=== PATIENT | female | born 1940 | race Caucasian/White ===

== ENCOUNTER → 2018-02-12 | Outpatient (CLI) | payer MEDICARE, OTHER ==
[~2018-02-12] MED LIST: BARIUM SULF 2% 450 ML BTL (BERRY SMOOTHIE) PO
== END | disposition home or self-care (01) ==
LOC: C/S 09:33
DX: R63.4 Abnormal weight loss (principal)
CPT/HCPCS: 71250; 74176

== ENCOUNTER 2018-02-22 11:51 | Inpatient (IN) | payer MEDICARE, OTHER ==
[2018-02-22] MEDS: ALBUTEROL 0.5% (NEB) 2.5 MG/0.5 ML AMP INH (14:07)
[2018-02-22] MEDS: IPRATROPIUM (NEB) 0.5 MG/2.5 ML AMP INH (14:07)
[2018-02-22 14:32] LABS: ADD MAN DIFF? NO
[2018-02-22 14:33] LABS: BASOPHILS % 0.4 % (0.0-2.0); EOSINOPHILS # 0.1 10^3/ul (0.0-0.5); EOSINOPHILS % 1.8 % (0.0-7.0); HEMATOCRIT 31.6 % (37.0-47.0); HEMOGLOBIN 10.5 g/dl (12.0-16.0); LYMPHOCYTES # 1.1 10^3/ul (0.8-2.9); LYMPHOCYTES % 19.6 % (15.0-51.0); MEAN CORPUSCULAR HEMOGLOBIN 30.4 pg (29.0-33.0); MEAN CORPUSCULAR HGB CONC 33.2 g/dl (32.0-37.0); MEAN CORPUSCULAR VOLUME 91.6 fl (82.0-101.0); MEAN PLATELET VOLUME 8.9 fl (7.4-10.4); MONOCYTE # 0.2 10^3/ul (0.3-0.9); MONOCYTES % 4.2 % (0.0-11.0); NEUTROPHIL # 4.2 10^3/ul (1.6-7.5); NEUTROPHILS % 73.8 % (39.0-77.0); PLATELET COUNT 423 10^3/UL (140-415); RED BLOOD COUNT 3.45 10^6/ul (4.20-5.40); RED CELL DISTRIBUTION WIDTH 13.1 % (11.5-14.5)
[2018-02-22 14:33] LABS: WHITE BLOOD COUNT 5.7 10^3/ul (4.8-10.8)
[2018-02-22] MEDS: METHYLPREDNISOLONE 125 MG INJ IV (14:46)
[2018-02-22] MEDS: IBUPROFEN 600 MG TAB PO (14:46)
[2018-02-22] MEDS: SOD CHLORIDE 0.9% 500 ML IV (14:46)
[2018-02-22 14:55] LABS: ALANINE AMINOTRANSFERASE 19 IU/L (13-69); ALBUMIN/GLOBULIN RATIO 1.02; ALKALINE PHOSPHATASE 94 IU/L (42-121); ANION GAP 17 (8-16); ASPARTATE AMINO TRANSFERASE 18 IU/L (15-46); BILIRUBIN,INDIRECT 0.4 mg/dl (0-1.1); BILIRUBIN,TOTAL 0.4 mg/dl (0.2-1.3); BLOOD UREA NITROGEN 23 mg/dl (7-20); CALCIUM 8.8 mg/dl (8.4-10.2); CARBON DIOXIDE 24 mmol/L (21-31); CHLORIDE 97 mmol/L (97-110); CREATININE 1.57 mg/dl (0.44-1.00); GLUCOSE 278 mg/dl (70-220); LIPASE 101 U/L (23-300); POTASSIUM 4.9 mmol/L (3.5-5.1); SODIUM 133 mmol/L (135-144); TOTAL PROTEIN 7.9 g/dl (6.1-8.1)
[2018-02-22 14:58] LABS: ADD UMIC YES; UR ASCORBIC ACID NEGATIVE (NEGATIVE); UR BACTERIA FEW /HPF (NONE SEEN); UR BILIRUBIN (Dip) NEGATIVE (NEGATIVE); UR BLOOD (Dip) NEGATIVE (NEGATIVE); UR BUDDING YEAST FEW /HPF (NONE SEEN); UR CLARITY CLOUDY (CLEAR); UR COLOR YELLOW (YELLOW); UR GLUCOSE (Dip) 1+ mg/dL (NEGATIVE); UR KETONES (Dip) NEGATIVE (NEGATIVE); UR LEUKOCYTE ESTERASE (Dip) 3+ Leu/ul (NEGATIVE); UR NITRITE (Dip) NEGATIVE (NEGATIVE); UR RBC 14 /HPF (0-5); UR SPECIFIC GRAVITY (Dip) 1.012 (1.003-1.030); UR SQUAMOUS EPITHELIAL CELL FEW /HPF (FEW); UR TOTAL PROTEIN (Dip) 2+ mg/dl (NEGATIVE); UR UROBILINOGEN (Dip) NEGATIVE (NEGATIVE); UR WBC 141 /HPF (0-5)
[2018-02-22 15:18] LABS: TROPONIN-I < 0.012 ng/ml (0.000-0.120)
[2018-02-22] MEDS: FUROSEMIDE 40 MG INJ IV (17:00)
[2018-02-22] MEDS: CEFTRIAXONE 1 GM/50 ML (PMX) 50 ML IVPB (17:00)
[2018-02-22] MEDS ORDERED: ONDANSETRON 4 MG INJ IV (18:00)
[2018-02-22] MEDS ORDERED: ZOLPIDEM 5 MG TAB PO (18:00)
[2018-02-22] MEDS ORDERED: ALBUTEROL/IPRATROPIUM (NEB) 3 ML AMP HHN (18:00)
[2018-02-22] MEDS ORDERED: BISACODYL (EC) 5 MG TAB PO (18:00)
[2018-02-22] MEDS ORDERED: NACL 0.9% 3 ML SYG IV (18:00)
[2018-02-22] MEDS ORDERED: GLUCOSE GEL 15 GRAM TUBE PO ×2 (20:30)
[2018-02-22] MEDS ORDERED: DEXTROSE 50% 50 ML SYRINGE IV (20:30)
[2018-02-22] MEDS ORDERED: GLUCOSE GEL 15 GRAM TUBE BUCCAL (20:30)
[2018-02-22] MEDS ORDERED: GLUCAGON 1 MG INJ IM (20:30)
[2018-02-22] MEDS: ALBUTEROL/IPRATROPIUM (NEB) 3 ML AMP HHN (20:33)
[2018-02-22] MEDS: metFORMIN (XR) 500 MG TAB PO (21:00)
[2018-02-22] MEDS: INSULIN ASPART [NOVOLOG] 3 ML PEN SC (21:39)
[2018-02-22] MEDS: INSULIN GLARGINE [LANtus] 3 ML PEN SC (21:40)
[2018-02-22] MEDS: NPH, HUMAN INSULIN ISOPHANE 3ML VIAL SC (21:40)
[2018-02-22] MEDS: GABAPENTIN 300 MG CAP PO (21:41)
[2018-02-22] MEDS: FLUOXETINE 20 MG CAP PO (21:42)
[2018-02-22] MEDS: METOPROLOL (XL) 50 MG TAB PO (21:42)
[2018-02-23] MEDS: ALBUTEROL/IPRATROPIUM (NEB) 3 ML AMP HHN ×6 (00:50→21:37)
[2018-02-23] MEDS: ACCU-CHEK XX (02:00)
[2018-02-23 06:11] LABS: ADD MAN DIFF? NO
[2018-02-23 06:19] LABS: HEMATOCRIT 28.7 % (37.0-47.0); HEMOGLOBIN 9.5 g/dl (12.0-16.0); LYMPHOCYTES # 0.8 10^3/ul (0.8-2.9); LYMPHOCYTES % 12.9 % (15.0-51.0); MEAN CORPUSCULAR HEMOGLOBIN 30.2 pg (29.0-33.0); MEAN CORPUSCULAR HGB CONC 33.1 g/dl (32.0-37.0); MEAN CORPUSCULAR VOLUME 91.1 fl (82.0-101.0); MEAN PLATELET VOLUME 9.5 fl (7.4-10.4); MONOCYTE # 0.1 10^3/ul (0.3-0.9); MONOCYTES % 1.7 % (0.0-11.0); NEUTROPHILS % 85.1 % (39.0-77.0); PLATELET COUNT 418 10^3/UL (140-415); RED BLOOD COUNT 3.15 10^6/ul (4.20-5.40); RED CELL DISTRIBUTION WIDTH 13.2 % (11.5-14.5)
[2018-02-23 06:19] LABS: WHITE BLOOD COUNT 5.9 10^3/ul (4.8-10.8)
[2018-02-23] MEDS: PANTOPRAZOLE (EC) 40 MG TAB PO (06:31)
[2018-02-23 06:48] LABS: ALANINE AMINOTRANSFERASE 15 IU/L (13-69); ALBUMIN 3.5 g/dl (3.3-4.9); ALKALINE PHOSPHATASE 79 IU/L (42-121); ANION GAP 22 (8-16); ASPARTATE AMINO TRANSFERASE 14 IU/L (15-46); BILIRUBIN,INDIRECT 0.1 mg/dl (0-1.1); BILIRUBIN,TOTAL 0.1 mg/dl (0.2-1.3); BLOOD UREA NITROGEN 26 mg/dl (7-20); CALCIUM 8.9 mg/dl (8.4-10.2); CARBON DIOXIDE 22 mmol/L (21-31); CHLORIDE 94 mmol/L (97-110); CHOL/HDL RATIO 4.1 RATIO; CHOLESTEROL 159 mg/dl (100-200); CREATININE 1.66 mg/dl (0.44-1.00); GLUCOSE 319 mg/dl (70-220); HDL CHOLESTEROL 38 mg/dl (33-92); LDL CHOLESTEROL,CALCULATED 104 mg/dl; POTASSIUM 5.2 mmol/L (3.5-5.1); SODIUM 133 mmol/L (135-144); TOTAL PROTEIN 6.4 g/dl (6.1-8.1); TRIGLYCERIDES 86 mg/dl (0-149)
[2018-02-23 06:55] LABS: B-TYPE NATRIURETIC PEPTIDE 2900 PG/ML (0-450)
[2018-02-23 07:14] LABS: HEMOGLOBIN A1C 10.2 % (0-5.9)
[2018-02-23] MEDS: metFORMIN (XR) 500 MG TAB PO (08:00)
[2018-02-23] MEDS: INSULIN ASPART [NOVOLOG] 3 ML PEN SC ×7 (08:02→21:00)
[2018-02-23] MEDS: FUROSEMIDE 40 MG INJ IV (09:32)
[2018-02-23] MEDS: ENOXAPARIN 30 MG/0.3 ML SYG SC (09:37)
[2018-02-23] MEDS ORDERED: PENDING SANTYL ORDER FOR WOUND CARE XX (10:00)
[2018-02-23] MEDS ORDERED: COLLAGENASE 5 GM (UD JAR) TOP (10:30)
[2018-02-23] MEDS: GABAPENTIN 300 MG CAP PO ×3 (10:36→20:55)
[2018-02-23] MEDS: METOPROLOL (XL) 50 MG TAB PO ×2 (10:37→20:56)
[2018-02-23] MEDS: NIFEdipine (XL) 60 MG TAB PO (10:37)
[2018-02-23] MEDS: LINAGLIPTIN 5 MG TABLET PO (10:37)
[2018-02-23 12:22] LABS: INR 1.09; PROTIME 14.2 Sec (11.9-14.9); PT RATIO 1.1
[2018-02-23 12:23] LABS: INR 1.09; PARTIAL THROMBOPLASTIN TIME 52.7 Sec (25.0-35.0); PROTIME 14.2 Sec (11.9-14.9); PT RATIO 1.1
[2018-02-23 12:24] LABS: PARTIAL THROMBOPLASTIN TIME 52.2 Sec (25.0-35.0); THROMBIN TIME 16.7 SEC (13.8-19.1)
[2018-02-23 12:24] LABS: PLATELET COUNT 411 10^3/UL (140-415)
[2018-02-23] MEDS: FLUOXETINE 20 MG CAP PO ×2 (13:15→20:56)
[2018-02-23] MEDS: DEXTROSE 50% 50 ML SYRINGE IV (15:49)
[2018-02-23] MEDS: CEFTRIAXONE 2 GM/50 ML (PMX) 50 ML IVPB (15:53)
[2018-02-23] MEDS ORDERED: INSULIN GLARGINE [LANtus] 3 ML PEN SC (20:00)
[2018-02-23] MEDS: ATORVASTATIN 10 MG TAB PO (20:55)
[2018-02-23] MEDS: INSULIN GLARGINE [LANtus] 3 ML PEN SC (21:10)
[2018-02-23] MEDS: LORAZEPAM 1 MG TAB PO (23:11)
[2018-02-24] MEDS: ALBUTEROL/IPRATROPIUM (NEB) 3 ML AMP HHN ×6 (01:14→20:54)
[2018-02-24] MEDS: ACCU-CHEK XX (02:00)
[2018-02-24 05:46] LABS: ADD MAN DIFF? NO
[2018-02-24 05:55] LABS: BASOPHILS % 0.3 % (0.0-2.0); EOSINOPHILS # 0.2 10^3/ul (0.0-0.5); EOSINOPHILS % 2.4 % (0.0-7.0); HEMATOCRIT 26.3 % (37.0-47.0); HEMOGLOBIN 8.8 g/dl (12.0-16.0); LYMPHOCYTES # 2.3 10^3/ul (0.8-2.9); LYMPHOCYTES % 25.1 % (15.0-51.0); MEAN CORPUSCULAR HEMOGLOBIN 30.2 pg (29.0-33.0); MEAN CORPUSCULAR HGB CONC 33.5 g/dl (32.0-37.0); MEAN CORPUSCULAR VOLUME 90.4 fl (82.0-101.0); MEAN PLATELET VOLUME 9.2 fl (7.4-10.4); MONOCYTE # 0.7 10^3/ul (0.3-0.9); MONOCYTES % 7.5 % (0.0-11.0); NEUTROPHIL # 5.8 10^3/ul (1.6-7.5); NEUTROPHILS % 64.3 % (39.0-77.0); PLATELET COUNT 419 10^3/UL (140-415); RED BLOOD COUNT 2.91 10^6/ul (4.20-5.40)
[2018-02-24 06:34] LABS: ANION GAP 16 (8-16); BLOOD UREA NITROGEN 43 mg/dl (7-20); CALCIUM 8.7 mg/dl (8.4-10.2); CARBON DIOXIDE 28 mmol/L (21-31); CHLORIDE 97 mmol/L (97-110); CREATININE 1.97 mg/dl (0.44-1.00); GLUCOSE 189 mg/dl (70-220); POTASSIUM 4.2 mmol/L (3.5-5.1); SODIUM 137 mmol/L (135-144)
[2018-02-24] MEDS: PANTOPRAZOLE (EC) 40 MG TAB PO (07:01)
[2018-02-24] MEDS: INSULIN ASPART [NOVOLOG] 3 ML PEN SC ×7 (08:00→21:00)
[2018-02-24] MEDS ORDERED: COLLAGENASE 5 GM (UD JAR) TOP (09:00)
[2018-02-24] MEDS: LINAGLIPTIN 5 MG TABLET PO (09:29)
[2018-02-24] MEDS: NIFEdipine (XL) 60 MG TAB PO (09:29)
[2018-02-24] MEDS: FLUOXETINE 20 MG CAP PO ×2 (09:29→20:22)
[2018-02-24] MEDS: GABAPENTIN 300 MG CAP PO ×3 (09:30→20:22)
[2018-02-24] MEDS: METOPROLOL (XL) 50 MG TAB PO ×2 (09:30→20:25)
[2018-02-24] MEDS: COLLAGENASE 5 GM (UD JAR) TOP (09:30)
[2018-02-24] MEDS: LIDOCAINE 1% (MDV) 10 ML INJ (11:02)
[2018-02-24 13:20] LABS: FLD MN% 95.4 %; FLD PMN% 4.6 %; FLD RBC 0 /uL; FLD WBC 388 /cmm
[2018-02-24 13:44] LABS: FLD TYPE THORACENTHESIS
[2018-02-24 13:44] LABS: FLD CLARITY SLIGHTLY HAZY; FLD COLOR YELLOW
[2018-02-24 13:50] LABS: FLUID GLUCOSE 179 mg/dl
[2018-02-24 13:52] LABS: FLUID TYPE THORACENTESIS
[2018-02-24 13:53] LABS: FLUID TOTAL PROTEIN 4.3 g/dl; FLUID TYPE THORACENTESIS FLUID
[2018-02-24] MEDS: ACETAMINOPHEN 325 MG TAB PO (14:09)
[2018-02-24 14:12] LABS: FLUID LD 266 U/L
[2018-02-24] MEDS: HYDROCODONE/APAP (5/325) TAB PO (15:36)
[2018-02-24] MEDS: CEFTRIAXONE 2 GM/50 ML (PMX) 50 ML IVPB (16:08)
[2018-02-24] MEDS: ATORVASTATIN 10 MG TAB PO (20:22)
[2018-02-24] MEDS: INSULIN GLARGINE [LANtus] 3 ML PEN SC (20:27)
[2018-02-24] MEDS: LORAZEPAM 1 MG TAB PO (22:03)
[2018-02-25] MEDS: ALBUTEROL/IPRATROPIUM (NEB) 3 ML AMP HHN ×6 (00:27→21:23)
[2018-02-25] MEDS: ACCU-CHEK XX (02:00)
[2018-02-25] MEDS: PANTOPRAZOLE (EC) 40 MG TAB PO (06:51)
[2018-02-25 07:47] LABS: ADD MAN DIFF? NO
[2018-02-25 07:51] LABS: WHITE BLOOD COUNT 7.1 10^3/ul (4.8-10.8)
[2018-02-25 07:51] LABS: BASOPHILS % 0.3 % (0.0-2.0); EOSINOPHILS # 0.3 10^3/ul (0.0-0.5); EOSINOPHILS % 4.5 % (0.0-7.0); HEMATOCRIT 27.7 % (37.0-47.0); HEMOGLOBIN 9.2 g/dl (12.0-16.0); LYMPHOCYTES # 1.2 10^3/ul (0.8-2.9); LYMPHOCYTES % 17.1 % (15.0-51.0); MEAN CORPUSCULAR HEMOGLOBIN 30.1 pg (29.0-33.0); MEAN CORPUSCULAR HGB CONC 33.2 g/dl (32.0-37.0); MEAN CORPUSCULAR VOLUME 90.5 fl (82.0-101.0); MEAN PLATELET VOLUME 9.4 fl (7.4-10.4); MONOCYTE # 0.5 10^3/ul (0.3-0.9); MONOCYTES % 7.6 % (0.0-11.0); NEUTROPHILS % 69.8 % (39.0-77.0); PLATELET COUNT 426 10^3/UL (140-415); RED BLOOD COUNT 3.06 10^6/ul (4.20-5.40); RED CELL DISTRIBUTION WIDTH 13.1 % (11.5-14.5)
[2018-02-25 08:29] LABS: ANION GAP 16 (8-16); BLOOD UREA NITROGEN 51 mg/dl (7-20); CARBON DIOXIDE 26 mmol/L (21-31); CHLORIDE 92 mmol/L (97-110); CREATININE 1.85 mg/dl (0.44-1.00); GLUCOSE 219 mg/dl (70-220); POTASSIUM 4.4 mmol/L (3.5-5.1); SODIUM 130 mmol/L (135-144)
[2018-02-25 08:32] LABS: MAGNESIUM 1.7 mg/dl (1.7-2.5)
[2018-02-25] MEDS: INSULIN ASPART [NOVOLOG] 3 ML PEN SC ×7 (08:37→21:00)
[2018-02-25] MEDS: NIFEdipine (XL) 60 MG TAB PO (08:42)
[2018-02-25] MEDS: METOPROLOL (XL) 50 MG TAB PO ×2 (08:42→20:45)
[2018-02-25] MEDS: LINAGLIPTIN 5 MG TABLET PO (08:42)
[2018-02-25] MEDS: FLUOXETINE 20 MG CAP PO ×2 (08:42→20:44)
[2018-02-25] MEDS: GABAPENTIN 300 MG CAP PO ×3 (08:43→20:44)
[2018-02-25] MEDS: ENOXAPARIN 30 MG/0.3 ML SYG SC (08:43)
[2018-02-25] MEDS: COLLAGENASE 5 GM (UD JAR) TOP (08:43)
[2018-02-25] MEDS: HYDROCODONE/APAP (5/325) TAB PO ×2 (13:54→20:53)
[2018-02-25] MEDS: DOCUSATE SODIUM 100 MG CAP PO (13:54)
[2018-02-25] MEDS: CEFTRIAXONE 2 GM/50 ML (PMX) 50 ML IVPB (16:43)
[2018-02-25] MEDS: ATORVASTATIN 10 MG TAB PO (20:44)
[2018-02-25] MEDS: INSULIN GLARGINE [LANtus] 3 ML PEN SC (20:47)
[2018-02-25] MEDS: LORAZEPAM 1 MG TAB PO (22:17)
[2018-02-26] MEDS: ALBUTEROL/IPRATROPIUM (NEB) 3 ML AMP HHN ×6 (01:00→20:17)
[2018-02-26] MEDS: ACCU-CHEK XX (02:00)
[2018-02-26] MEDS: PANTOPRAZOLE (EC) 40 MG TAB PO (05:17)
[2018-02-26] MEDS: NIFEdipine (XL) 60 MG TAB PO (08:43)
[2018-02-26] MEDS: METOPROLOL (XL) 50 MG TAB PO ×2 (08:43→21:35)
[2018-02-26] MEDS: DOCUSATE SODIUM 100 MG CAP PO (08:43)
[2018-02-26] MEDS: INSULIN ASPART [NOVOLOG] 3 ML PEN SC ×7 (08:44→21:30)
[2018-02-26] MEDS: GABAPENTIN 300 MG CAP PO ×3 (08:45→21:35)
[2018-02-26] MEDS: FLUOXETINE 20 MG CAP PO ×2 (08:45→21:35)
[2018-02-26] MEDS: LINAGLIPTIN 5 MG TABLET PO (08:45)
[2018-02-26] MEDS: COLLAGENASE 5 GM (UD JAR) TOP (08:45)
[2018-02-26] MEDS: ENOXAPARIN 30 MG/0.3 ML SYG SC (08:45)
[2018-02-26 13:56] LABS: NIL 0.04 IU/mL; QUANTIFERON(R)-TB GOLD NEGATIVE (NEGATIVE); TB-NIL <0.00 IU/mL
[2018-02-26] MEDS: CEFTRIAXONE 2 GM/50 ML (PMX) 50 ML IVPB (17:05)
[2018-02-26] MEDS: INSULIN GLARGINE [LANtus] 3 ML PEN SC (21:29)
[2018-02-26] MEDS: ATORVASTATIN 10 MG TAB PO (21:35)
[2018-02-27] MEDS: ALBUTEROL/IPRATROPIUM (NEB) 3 ML AMP HHN ×6 (01:31→20:34)
[2018-02-27] MEDS: ACCU-CHEK XX (02:00)
[2018-02-27] MEDS: PANTOPRAZOLE (EC) 40 MG TAB PO (05:49)
[2018-02-27 07:00] LABS: CREATININE 1.74 mg/dl (0.44-1.00)
[2018-02-27 07:00] LABS: BLOOD UREA NITROGEN 48 mg/dl (7-20)
[2018-02-27] MEDS: INSULIN ASPART [NOVOLOG] 3 ML PEN SC ×7 (07:35→20:23)
[2018-02-27] MEDS: ENOXAPARIN 30 MG/0.3 ML SYG SC (08:53)
[2018-02-27] MEDS: FLUOXETINE 20 MG CAP PO ×2 (08:54→20:16)
[2018-02-27] MEDS: NIFEdipine (XL) 60 MG TAB PO (08:54)
[2018-02-27] MEDS: LINAGLIPTIN 5 MG TABLET PO (08:54)
[2018-02-27] MEDS: GABAPENTIN 300 MG CAP PO ×3 (08:54→20:16)
[2018-02-27] MEDS: METOPROLOL (XL) 50 MG TAB PO ×2 (08:55→20:17)
[2018-02-27] MEDS: HYDROCODONE/APAP (5/325) TAB PO (08:55)
[2018-02-27] MEDS: COLLAGENASE 5 GM (UD JAR) TOP (08:57)
[2018-02-27] MEDS: CEFTRIAXONE 2 GM/50 ML (PMX) 50 ML IVPB (17:37)
[2018-02-27] MEDS: ATORVASTATIN 10 MG TAB PO (20:15)
[2018-02-27] MEDS: INSULIN GLARGINE [LANtus] 3 ML PEN SC (20:22)
[2018-02-27] MEDS: LORAZEPAM 1 MG TAB PO (22:15)
[2018-02-28] MEDS: ALBUTEROL/IPRATROPIUM (NEB) 3 ML AMP HHN ×6 (01:21→20:00)
[2018-02-28] MEDS: ACCU-CHEK XX (01:22)
[2018-02-28] MEDS: PANTOPRAZOLE (EC) 40 MG TAB PO (05:42)
[2018-02-28] MEDS: INSULIN ASPART [NOVOLOG] 3 ML PEN SC ×7 (08:39→21:12)
[2018-02-28] MEDS: GABAPENTIN 300 MG CAP PO ×3 (08:42→21:07)
[2018-02-28] MEDS: NIFEdipine (XL) 60 MG TAB PO (08:42)
[2018-02-28] MEDS: FLUOXETINE 20 MG CAP PO ×2 (08:42→21:07)
[2018-02-28] MEDS: METOPROLOL (XL) 50 MG TAB PO ×2 (08:43→21:07)
[2018-02-28] MEDS: LINAGLIPTIN 5 MG TABLET PO (08:43)
[2018-02-28] MEDS: ENOXAPARIN 30 MG/0.3 ML SYG SC (08:44)
[2018-02-28] MEDS: COLLAGENASE 5 GM (UD JAR) TOP (08:54)
[2018-02-28] MEDS: CEFTRIAXONE 2 GM/50 ML (PMX) 50 ML IVPB (18:09)
[2018-02-28] MEDS: INSULIN GLARGINE [LANtus] 3 ML PEN SC (21:12)
[2018-02-28] MEDS: ATORVASTATIN 10 MG TAB PO (21:13)
[2018-03-01] MEDS: ALBUTEROL/IPRATROPIUM (NEB) 3 ML AMP HHN ×5 (00:51→17:19)
[2018-03-01] MEDS: ACCU-CHEK XX (02:00)
[2018-03-01] MEDS: PANTOPRAZOLE (EC) 40 MG TAB PO (05:38)
[2018-03-01 05:54] LABS: ADD MAN DIFF? NO
[2018-03-01 05:59] LABS: WHITE BLOOD COUNT 11.6 10^3/ul (4.8-10.8)
[2018-03-01 05:59] LABS: BASOPHIL # 0.1 10^3/ul (0.0-0.1); BASOPHILS % 0.4 % (0.0-2.0); EOSINOPHILS # 0.3 10^3/ul (0.0-0.5); EOSINOPHILS % 2.2 % (0.0-7.0); HEMATOCRIT 28.5 % (37.0-47.0); HEMOGLOBIN 9.2 g/dl (12.0-16.0); LYMPHOCYTES # 1.4 10^3/ul (0.8-2.9); MEAN CORPUSCULAR HEMOGLOBIN 30.4 pg (29.0-33.0); MEAN CORPUSCULAR HGB CONC 32.3 g/dl (32.0-37.0); MEAN CORPUSCULAR VOLUME 94.1 fl (82.0-101.0); MEAN PLATELET VOLUME 9.4 fl (7.4-10.4); MONOCYTE # 0.7 10^3/ul (0.3-0.9); NEUTROPHIL # 9.2 10^3/ul (1.6-7.5); NEUTROPHILS % 78.9 % (39.0-77.0); PLATELET COUNT 487 10^3/UL (140-415); RED BLOOD COUNT 3.03 10^6/ul (4.20-5.40); RED CELL DISTRIBUTION WIDTH 13.2 % (11.5-14.5)
[2018-03-01 07:10] LABS: ALANINE AMINOTRANSFERASE 22 IU/L (13-69); ALBUMIN 3.8 g/dl (3.3-4.9); ALBUMIN/GLOBULIN RATIO 1.15; ALKALINE PHOSPHATASE 123 IU/L (42-121); ANION GAP 20 (8-16); ASPARTATE AMINO TRANSFERASE 27 IU/L (15-46); B-TYPE NATRIURETIC PEPTIDE 4060 PG/ML (0-450); BILIRUBIN,INDIRECT 0.1 mg/dl (0-1.1); BILIRUBIN,TOTAL 0.1 mg/dl (0.2-1.3); BLOOD UREA NITROGEN 46 mg/dl (7-20); CALCIUM 8.9 mg/dl (8.4-10.2); CARBON DIOXIDE 23 mmol/L (21-31); CHLORIDE 97 mmol/L (97-110); CREATININE 1.73 mg/dl (0.44-1.00); GLUCOSE 181 mg/dl (70-220); POTASSIUM 5.1 mmol/L (3.5-5.1); SODIUM 135 mmol/L (135-144); TOTAL PROTEIN 7.1 g/dl (6.1-8.1)
[2018-03-01] MEDS: INSULIN ASPART [NOVOLOG] 3 ML PEN SC ×4 (08:07→12:30)
[2018-03-01] MEDS: GABAPENTIN 300 MG CAP PO ×2 (08:52→14:07)
[2018-03-01] MEDS: NIFEdipine (XL) 60 MG TAB PO (08:52)
[2018-03-01] MEDS: LINAGLIPTIN 5 MG TABLET PO (08:53)
[2018-03-01] MEDS: METOPROLOL (XL) 50 MG TAB PO (08:53)
[2018-03-01] MEDS: FLUOXETINE 20 MG CAP PO (08:53)
[2018-03-01] MEDS: ENOXAPARIN 30 MG/0.3 ML SYG SC (08:54)
[2018-03-01] MEDS: COLLAGENASE 5 GM (UD JAR) TOP (09:00)
[2018-03-01] MEDS: HYDROCODONE/APAP (5/325) TAB PO (16:32)
== END 2018-03-01 18:46 | disposition home or self-care (01) | DRG 291 ==
LOC: MS4 16:53 → PP2 02-26 22:33 → E/R 11:51
PROC: 0W9B3ZX Drainage of Left Pleural Cavity, Percutaneous Approach, Diagnostic (ICD-10-PCS; principal; 2018-02-24)
DX: I13.0 Hypertensive heart and chronic kidney disease with heart failure and stage 1 through stage 4 chronic kidney disease, or unspecified chronic kidney disease (principal); L89.153 Pressure ulcer of sacral region, stage 3; I50.41 Acute combined systolic (congestive) and diastolic (congestive) heart failure; N39.0 Urinary tract infection, site not specified; J90 Pleural effusion, not elsewhere classified; N17.9 Acute kidney failure, unspecified; E11.22 Type 2 diabetes mellitus with diabetic chronic kidney disease; D63.1 Anemia in chronic kidney disease; N18.2 Chronic kidney disease, stage 2 (mild); J45.20 Mild intermittent asthma, uncomplicated; K21.9 Gastro-esophageal reflux disease without esophagitis; E78.5 Hyperlipidemia, unspecified; B96.20 Unspecified Escherichia coli [E. coli] as the cause of diseases classified elsewhere; Z96.642 Presence of left artificial hip joint; Z79.4 Long term (current) use of insulin
CPT/HCPCS: 32555; 36415; 71045; 71047; 71250; 80048; 80053; 80061; 81001; 82565; 82945; 82962; 83036; 83615; 83690; 83735; 83880; 84157; 84484; 84520; 85025; 85049; 85610; 85670; 85730; 86480; 87070; 87086; 87102; 87116; 88104; 88305; 89051; 93005; 93306; 94640; 94644; 94664; 96372; 96374; 96375; 99285-25

== ENCOUNTER 2018-05-07 10:19 | Inpatient (IN) | payer MEDICARE, OTHER ==
[2018-05-07 11:11] LABS: ADD MAN DIFF? NO
[2018-05-07] MEDS: ACETAMINOPHEN 500 MG TAB PO (11:11)
[2018-05-07 11:16] LABS: WHITE BLOOD COUNT 8.9 10^3/ul (4.8-10.8)
[2018-05-07 11:16] LABS: ABNORMAL IP MESSAGE 1; BASOPHILS % 0.1 % (0.0-2.0); EOSINOPHILS % 0.3 % (0.0-7.0); HEMATOCRIT 20.4 % (37.0-47.0); LYMPHOCYTES # 0.6 10^3/ul (0.8-2.9); LYMPHOCYTES % 6.8 % (15.0-51.0); MEAN CORPUSCULAR HEMOGLOBIN 28.9 pg (29.0-33.0); MEAN CORPUSCULAR HGB CONC 32.4 g/dl (32.0-37.0); MEAN CORPUSCULAR VOLUME 89.5 fl (82.0-101.0); MEAN PLATELET VOLUME 8.7 fl (7.4-10.4); MONOCYTE # 0.5 10^3/ul (0.3-0.9); MONOCYTES % 5.1 % (0.0-11.0); NEUTROPHIL # 7.8 10^3/ul (1.6-7.5); NEUTROPHILS % 87.4 % (39.0-77.0); PLATELET COUNT 543 10^3/UL (140-415); RED BLOOD COUNT 2.28 10^6/ul (4.20-5.40); RED CELL DISTRIBUTION WIDTH 14.7 % (11.5-14.5)
[2018-05-07 11:20] LABS: HEMOGLOBIN 6.6 g/dl (12.0-16.0); POSITIVE DIFF @See below
[2018-05-07 11:23] LABS: ADD UMIC YES; UR ASCORBIC ACID NEGATIVE (NEGATIVE); UR BACTERIA FEW /HPF (NONE SEEN); UR BILIRUBIN (Dip) NEGATIVE (NEGATIVE); UR BLOOD (Dip) 2+ mg/dL (NEGATIVE); UR CLARITY CLEAR (CLEAR); UR COLOR STRAW (YELLOW); UR GLUCOSE (Dip) NEGATIVE (NEGATIVE); UR KETONES (Dip) NEGATIVE (NEGATIVE); UR LEUKOCYTE ESTERASE (Dip) NEGATIVE Leu/ul (NEGATIVE); UR NITRITE (Dip) NEGATIVE (NEGATIVE); UR RBC 5 /HPF (0-5); UR SPECIFIC GRAVITY (Dip) 1.004 (1.003-1.030); UR SQUAMOUS EPITHELIAL CELL FEW /HPF (FEW); UR TOTAL PROTEIN (Dip) 1+ mg/dl (NEGATIVE); UR UROBILINOGEN (Dip) NEGATIVE (NEGATIVE); UR WBC 5 /HPF (0-5)
[2018-05-07 11:34] LABS: ANION GAP 16 (8-16); BLOOD UREA NITROGEN 58 mg/dl (7-20); CALCIUM 8.1 mg/dl (8.4-10.2); CARBON DIOXIDE 27 mmol/L (21-31); CHLORIDE 95 mmol/L (97-110); CREATININE 6.17 mg/dl (0.44-1.00); GLUCOSE 115 mg/dl (70-220); POTASSIUM 5.9 mmol/L (3.5-5.1); SODIUM 132 mmol/L (135-144)
[2018-05-07 11:44] LABS: TROPONIN-I < 0.012 ng/ml (0.000-0.120)
[2018-05-07 11:57] LABS: INR 0.91; PROTIME 12.3 Sec (11.9-14.9)
[2018-05-07 11:58] LABS: PARTIAL THROMBOPLASTIN TIME 28.6 Sec (25.0-35.0)
[2018-05-07] MEDS: NA POLYST SULFON 15 GM/60 ML BTL PO (13:57)
[2018-05-07] MEDS ORDERED: ONDANSETRON 4 MG TAB PO (14:00)
[2018-05-07] MEDS: ACCU-CHEK XX ×3 (14:00→19:55)
[2018-05-07] MEDS ORDERED: DOCUSATE SODIUM 100 MG CAP PO (14:00)
[2018-05-07] MEDS ORDERED: NACL 0.9% 3 ML SYG IV (14:00)
[2018-05-07 14:17] LABS: ADD MAN DIFF? NO
[2018-05-07 14:28] LABS: BASOPHILS % 0.1 % (0.0-2.0); EOSINOPHILS # 0.1 10^3/ul (0.0-0.5); HEMOGLOBIN 7.1 g/dl (12.0-16.0); LYMPHOCYTES # 0.9 10^3/ul (0.8-2.9); LYMPHOCYTES % 9.9 % (15.0-51.0); MEAN CORPUSCULAR HEMOGLOBIN 29.1 pg (29.0-33.0); MEAN CORPUSCULAR HGB CONC 32.3 g/dl (32.0-37.0); MEAN CORPUSCULAR VOLUME 90.2 fl (82.0-101.0); MEAN PLATELET VOLUME 8.7 fl (7.4-10.4); MONOCYTE # 0.5 10^3/ul (0.3-0.9); MONOCYTES % 4.9 % (0.0-11.0); NEUTROPHIL # 7.9 10^3/ul (1.6-7.5); NEUTROPHILS % 83.8 % (39.0-77.0); PLATELET COUNT 583 10^3/UL (140-415); RED BLOOD COUNT 2.44 10^6/ul (4.20-5.40); RED CELL DISTRIBUTION WIDTH 14.6 % (11.5-14.5)
[2018-05-07 14:28] LABS: WHITE BLOOD COUNT 9.4 10^3/ul (4.8-10.8)
[2018-05-07 14:32] LABS: ADD UMIC YES; UR ASCORBIC ACID NEGATIVE (NEGATIVE); UR BACTERIA FEW /HPF (NONE SEEN); UR BILIRUBIN (Dip) NEGATIVE (NEGATIVE); UR BLOOD (Dip) 2+ mg/dL (NEGATIVE); UR CLARITY CLEAR (CLEAR); UR COLOR STRAW (YELLOW); UR GLUCOSE (Dip) NEGATIVE (NEGATIVE); UR KETONES (Dip) NEGATIVE (NEGATIVE); UR LEUKOCYTE ESTERASE (Dip) NEGATIVE Leu/ul (NEGATIVE); UR MUCUS FEW /HPF (NONE SEEN); UR NITRITE (Dip) NEGATIVE (NEGATIVE); UR RBC 10 /HPF (0-5); UR SPECIFIC GRAVITY (Dip) 1.004 (1.003-1.030); UR SQUAMOUS EPITHELIAL CELL FEW /HPF (FEW); UR TOTAL PROTEIN (Dip) 1+ mg/dl (NEGATIVE); UR UROBILINOGEN (Dip) NEGATIVE (NEGATIVE); UR WBC 4 /HPF (0-5)
[2018-05-07 14:35] LABS: IRON 25 ug/dl (35-150)
[2018-05-07 14:44] LABS: % IRON SATURATION 10 % SAT (22-52); TOTAL IRON BINDING CAPACITY 251 ug/dl (241-421)
[2018-05-07 14:45] LABS: CREATINE KINASE 29 IU/L (23-200)
[2018-05-07 14:47] LABS: ALANINE AMINOTRANSFERASE 14 IU/L (13-69); ALBUMIN 3.7 g/dl (3.3-4.9); ALBUMIN/GLOBULIN RATIO 1.02; ALKALINE PHOSPHATASE 91 IU/L (42-121); ANION GAP 18 (8-16); ASPARTATE AMINO TRANSFERASE 17 IU/L (15-46); BILIRUBIN,INDIRECT 0.1 mg/dl (0-1.1); BILIRUBIN,TOTAL 0.1 mg/dl (0.2-1.3); BLOOD UREA NITROGEN 61 mg/dl (7-20); CALCIUM 8.4 mg/dl (8.4-10.2); CARBON DIOXIDE 25 mmol/L (21-31); CHLORIDE 96 mmol/L (97-110); CREATININE 6.18 mg/dl (0.44-1.00); GLUCOSE 66 mg/dl (70-220); POTASSIUM 5.7 mmol/L (3.5-5.1); SODIUM 133 mmol/L (135-144); TOTAL PROTEIN 7.3 g/dl (6.1-8.1)
[2018-05-07 14:57] LABS: CK INDEX 4.3; CK-MB 1.25 ng/ml (0.0-2.4); TROPONIN-I < 0.012 ng/ml (0.000-0.120)
[2018-05-07 15:03] LABS: PHOSPHORUS 5.9 mg/dl (2.5-4.9)
[2018-05-07 15:03] LABS: MAGNESIUM 2.8 mg/dl (1.7-2.5)
[2018-05-07 15:27] LABS: SODIUM,URINE RANDOM 44 mmol/L (30-90)
[2018-05-07 15:28] LABS: CREATININE,URINE RANDOM 17.32 mg/dl (20-320); PROTEIN/CREAT RATIO 4.15 RATIO
[2018-05-07 15:34] LABS: IONIZED CALCIUM 1.1 mmol/L (1.1-1.4)
[2018-05-07] MEDS ORDERED: GLUCOSE GEL 15 GRAM TUBE PO ×2 (17:30)
[2018-05-07] MEDS ORDERED: GLUCAGON 1 MG INJ IM (17:30)
[2018-05-07] MEDS ORDERED: GLUCOSE GEL 15 GRAM TUBE BUCCAL (17:30)
[2018-05-07] MEDS ORDERED: DEXTROSE 50% 50 ML SYRINGE IV ×2 (17:30)
[2018-05-07] MEDS ORDERED: INSULIN ASPART [NOVOLOG] 3 ML PEN SC (17:55)
[2018-05-07] MEDS: HYDROCODONE/APAP (5/325) TAB PO (18:27)
[2018-05-07] MEDS ORDERED: hydrALAzine 20 MG INJ (18:51)
[2018-05-07] MEDS: FAMOTIDINE 20 MG TAB PO (20:04)
[2018-05-07] MEDS: GABAPENTIN 300 MG CAP PO (20:04)
[2018-05-07] MEDS: FLUOXETINE 20 MG CAP PO (20:04)
[2018-05-07] MEDS: METOPROLOL (XL) 50 MG TAB PO (20:04)
[2018-05-07] MEDS: ATORVASTATIN 10 MG TAB PO (20:04)
[2018-05-07 20:11] LABS: CREATINE KINASE 31 IU/L (23-200)
[2018-05-07 20:21] LABS: CK INDEX 4.1; CK-MB 1.28 ng/ml (0.0-2.4)
[2018-05-07 20:25] LABS: TROPONIN-I < 0.012 ng/ml (0.000-0.120)
[2018-05-07] MEDS: INSULIN ASPART [NOVOLOG] 3 ML PEN SC (21:27)
[2018-05-07] MEDS: INSULIN GLARGINE [LANTus] (100 UNITS/ML) SYG SC (21:34)
[2018-05-07 22:06] LABS: IMMEDIATE SPIN CROSSMATCH 1 2
[2018-05-08] MEDS: LORAZEPAM 0.5 MG TAB PO (00:26)
[2018-05-08] MEDS: SOD CHLORIDE 0.9% 1,000 ML IV ×3 (01:32→20:13)
[2018-05-08] MEDS: HYDROCODONE/APAP (5/325) TAB PO (05:22)
[2018-05-08 06:52] LABS: ADD MAN DIFF? NO
[2018-05-08 07:00] LABS: BASOPHILS % 0.2 % (0.0-2.0); EOSINOPHILS # 0.2 10^3/ul (0.0-0.5); EOSINOPHILS % 1.7 % (0.0-7.0); HEMOGLOBIN 9.8 g/dl (12.0-16.0); LYMPHOCYTES # 0.6 10^3/ul (0.8-2.9); LYMPHOCYTES % 5.9 % (15.0-51.0); MEAN CORPUSCULAR HEMOGLOBIN 29.4 pg (29.0-33.0); MEAN CORPUSCULAR HGB CONC 33.8 g/dl (32.0-37.0); MEAN CORPUSCULAR VOLUME 87.1 fl (82.0-101.0); MEAN PLATELET VOLUME 8.8 fl (7.4-10.4); MONOCYTE # 0.5 10^3/ul (0.3-0.9); MONOCYTES % 4.9 % (0.0-11.0); NEUTROPHIL # 8.9 10^3/ul (1.6-7.5); NEUTROPHILS % 86.7 % (39.0-77.0); PLATELET COUNT 501 10^3/UL (140-415); RED BLOOD COUNT 3.33 10^6/ul (4.20-5.40); RED CELL DISTRIBUTION WIDTH 14.7 % (11.5-14.5)
[2018-05-08 07:00] LABS: WHITE BLOOD COUNT 10.2 10^3/ul (4.8-10.8)
[2018-05-08] MEDS: ACCU-CHEK XX ×6 (07:25→19:55)
[2018-05-08 07:36] LABS: ALANINE AMINOTRANSFERASE 15 IU/L (13-69); ALBUMIN 3.1 g/dl (3.3-4.9); ALBUMIN/GLOBULIN RATIO 0.86; ALKALINE PHOSPHATASE 98 IU/L (42-121); ANION GAP 16 (8-16); ASPARTATE AMINO TRANSFERASE 24 IU/L (15-46); BILIRUBIN,INDIRECT 0.4 mg/dl (0-1.1); BILIRUBIN,TOTAL 0.4 mg/dl (0.2-1.3); BLOOD UREA NITROGEN 62 mg/dl (7-20); CALCIUM 7.7 mg/dl (8.4-10.2); CARBON DIOXIDE 26 mmol/L (21-31); CHLORIDE 97 mmol/L (97-110); CREATININE 5.63 mg/dl (0.44-1.00); GLUCOSE 67 mg/dl (70-220); SODIUM 134 mmol/L (135-144); TOTAL PROTEIN 6.7 g/dl (6.1-8.1)
[2018-05-08 07:59] LABS: HEMOGLOBIN A1C 7.7 % (0-5.9)
[2018-05-08] MEDS: PANTOPRAZOLE (EC) 40 MG TAB PO (08:14)
[2018-05-08] MEDS: NIFEdipine (XL) 60 MG TAB PO (08:15)
[2018-05-08] MEDS: GABAPENTIN 300 MG CAP PO ×3 (08:16→20:13)
[2018-05-08] MEDS: FLUOXETINE 20 MG CAP PO ×2 (08:16→20:13)
[2018-05-08] MEDS: METOPROLOL (XL) 50 MG TAB PO ×2 (08:16→20:16)
[2018-05-08] MEDS: LINAGLIPTIN 5 MG TABLET PO (09:14)
[2018-05-08] MEDS: INSULIN ASPART [NOVOLOG] 3 ML PEN SC ×3 (10:13→17:51)
[2018-05-08] MEDS: SOD FERRIC GLUC COMPLX 125 MG in SOD CHLORIDE 0.9% 100 ML IVPB (16:30)
[2018-05-08] MEDS: EPOETIN 10000 UNITS/1 ML INJ (ESRD) SC (16:32)
[2018-05-08] MEDS ORDERED: COLLAGENASE 5 GM (UD JAR) TOP (16:39)
[2018-05-08] MEDS: COLLAGENASE 5 GM (UD JAR) TOP (17:06)
[2018-05-08] MEDS: NEOMYC/POLYMYX/BACIT 30 GM OINT TOP (17:52)
[2018-05-08] MEDS: ACETAMINOPHEN 325 MG TAB PO (20:12)
[2018-05-08] MEDS: ATORVASTATIN 10 MG TAB PO (20:12)
[2018-05-08] MEDS: FAMOTIDINE 20 MG TAB PO (20:13)
[2018-05-08] MEDS: INSULIN GLARGINE [LANTus] (100 UNITS/ML) SYG SC (20:23)
[2018-05-09 02:52] LABS: PROTEIN, TOTAL 6.5 g/dL (6.1-8.1)
[2018-05-09] MEDS: PANTOPRAZOLE (EC) 40 MG TAB PO (06:38)
[2018-05-09 07:22] LABS: ADD MAN DIFF? NO
[2018-05-09 07:26] LABS: WHITE BLOOD COUNT 9.7 10^3/ul (4.8-10.8)
[2018-05-09 07:26] LABS: ABNORMAL IP MESSAGE 1; BASOPHILS % 0.1 % (0.0-2.0); EOSINOPHILS % 0.1 % (0.0-7.0); HEMATOCRIT 29.1 % (37.0-47.0); HEMOGLOBIN 9.4 g/dl (12.0-16.0); LYMPHOCYTES # 0.5 10^3/ul (0.8-2.9); LYMPHOCYTES % 4.9 % (15.0-51.0); MEAN CORPUSCULAR HEMOGLOBIN 29.3 pg (29.0-33.0); MEAN CORPUSCULAR HGB CONC 32.3 g/dl (32.0-37.0); MEAN CORPUSCULAR VOLUME 90.7 fl (82.0-101.0); MEAN PLATELET VOLUME 8.6 fl (7.4-10.4); MONOCYTE # 0.4 10^3/ul (0.3-0.9); MONOCYTES % 4.5 % (0.0-11.0); NEUTROPHIL # 8.8 10^3/ul (1.6-7.5); NEUTROPHILS % 89.9 % (39.0-77.0); PLATELET COUNT 463 10^3/UL (140-415); RED BLOOD COUNT 3.21 10^6/ul (4.20-5.40); RED CELL DISTRIBUTION WIDTH 14.8 % (11.5-14.5)
[2018-05-09 07:30] LABS: POSITIVE DIFF @See below
[2018-05-09 07:47] LABS: ALANINE AMINOTRANSFERASE 12 IU/L (13-69); ALBUMIN 2.8 g/dl (3.3-4.9); ALBUMIN/GLOBULIN RATIO 0.82; ALKALINE PHOSPHATASE 89 IU/L (42-121); ANION GAP 18 (8-16); ASPARTATE AMINO TRANSFERASE 19 IU/L (15-46); BILIRUBIN,INDIRECT 0.1 mg/dl (0-1.1); BILIRUBIN,TOTAL 0.1 mg/dl (0.2-1.3); BLOOD UREA NITROGEN 57 mg/dl (7-20); CALCIUM 7.7 mg/dl (8.4-10.2); CARBON DIOXIDE 22 mmol/L (21-31); CHLORIDE 98 mmol/L (97-110); CREATININE 5.24 mg/dl (0.44-1.00); GLUCOSE 170 mg/dl (70-220); MAGNESIUM 2.6 mg/dl (1.7-2.5); PHOSPHORUS 6.7 mg/dl (2.5-4.9); POTASSIUM 4.1 mmol/L (3.5-5.1); SODIUM 134 mmol/L (135-144); TOTAL PROTEIN 6.2 g/dl (6.1-8.1)
[2018-05-09] MEDS: ACCU-CHEK XX ×6 (08:07→19:55)
[2018-05-09] MEDS: INSULIN ASPART [NOVOLOG] 3 ML PEN SC ×3 (08:10→17:15)
[2018-05-09] MEDS: LINAGLIPTIN 5 MG TABLET PO (08:17)
[2018-05-09] MEDS: GABAPENTIN 300 MG CAP PO ×3 (08:17→20:43)
[2018-05-09] MEDS: NIFEdipine (XL) 60 MG TAB PO (08:17)
[2018-05-09] MEDS: METOPROLOL (XL) 50 MG TAB PO ×2 (08:18→20:44)
[2018-05-09] MEDS: FLUOXETINE 20 MG CAP PO ×2 (08:18→20:44)
[2018-05-09] MEDS: NEOMYC/POLYMYX/BACIT 30 GM OINT TOP (08:26)
[2018-05-09] MEDS: SOD CHLORIDE 0.9% 1,000 ML IV ×2 (10:30→18:43)
[2018-05-09] MEDS: CALCIUM ACETATE 667 MG CAP PO ×2 (12:52→17:15)
[2018-05-09] MEDS: SOD FERRIC GLUC COMPLX 125 MG in SOD CHLORIDE 0.9% 100 ML IVPB (17:15)
[2018-05-09] MEDS: ATORVASTATIN 10 MG TAB PO (20:43)
[2018-05-09] MEDS: FAMOTIDINE 20 MG TAB PO (20:43)
[2018-05-09] MEDS: ACETAMINOPHEN 325 MG TAB PO (20:45)
[2018-05-09] MEDS: INSULIN GLARGINE [LANTus] (100 UNITS/ML) SYG SC (20:49)
[2018-05-09 22:26] LABS: ALPHA-1-GLOBULINS 0.5 g/dL (0.2-0.3); BETA 2 GLOBULINS 0.6 g/dL (0.2-0.5); BETA GLOBULINS 0.4 g/dL (0.4-0.6)
[2018-05-10 06:55] LABS: ADD MAN DIFF? NO
[2018-05-10 06:59] LABS: BASOPHILS % 0.3 % (0.0-2.0); EOSINOPHILS # 0.2 10^3/ul (0.0-0.5); EOSINOPHILS % 2.6 % (0.0-7.0); HEMATOCRIT 24.5 % (37.0-47.0); HEMOGLOBIN 8.2 g/dl (12.0-16.0); LYMPHOCYTES % 13.1 % (15.0-51.0); MEAN CORPUSCULAR HEMOGLOBIN 29.6 pg (29.0-33.0); MEAN CORPUSCULAR HGB CONC 33.5 g/dl (32.0-37.0); MEAN CORPUSCULAR VOLUME 88.4 fl (82.0-101.0); MONOCYTE # 0.4 10^3/ul (0.3-0.9); MONOCYTES % 4.5 % (0.0-11.0); NEUTROPHIL # 6.2 10^3/ul (1.6-7.5); PLATELET COUNT 423 10^3/UL (140-415); RED BLOOD COUNT 2.77 10^6/ul (4.20-5.40); RED CELL DISTRIBUTION WIDTH 14.2 % (11.5-14.5)
[2018-05-10 06:59] LABS: WHITE BLOOD COUNT 7.8 10^3/ul (4.8-10.8)
[2018-05-10 07:24] LABS: ALANINE AMINOTRANSFERASE 16 IU/L (13-69); ALBUMIN 2.7 g/dl (3.3-4.9); ALBUMIN/GLOBULIN RATIO 0.81; ALKALINE PHOSPHATASE 85 IU/L (42-121); ANION GAP 16 (8-16); ASPARTATE AMINO TRANSFERASE 17 IU/L (15-46); BILIRUBIN,INDIRECT 0.1 mg/dl (0-1.1); BILIRUBIN,TOTAL 0.1 mg/dl (0.2-1.3); BLOOD UREA NITROGEN 56 mg/dl (7-20); CALCIUM 7.7 mg/dl (8.4-10.2); CARBON DIOXIDE 24 mmol/L (21-31); CHLORIDE 97 mmol/L (97-110); CREATININE 4.86 mg/dl (0.44-1.00); GLUCOSE 82 mg/dl (70-220); POTASSIUM 3.8 mmol/L (3.5-5.1); SODIUM 133 mmol/L (135-144)
[2018-05-10] MEDS: INSULIN ASPART [NOVOLOG] 3 ML PEN SC ×3 (07:55→17:42)
[2018-05-10] MEDS: ACCU-CHEK XX ×6 (08:23→19:55)
[2018-05-10] MEDS: ACETAMINOPHEN 325 MG TAB PO (08:37)
[2018-05-10] MEDS: COLLAGENASE 5 GM (UD JAR) TOP (08:37)
[2018-05-10] MEDS: GABAPENTIN 300 MG CAP PO ×3 (08:38→21:08)
[2018-05-10] MEDS: LINAGLIPTIN 5 MG TABLET PO (08:38)
[2018-05-10] MEDS: PANTOPRAZOLE (EC) 40 MG TAB PO (08:38)
[2018-05-10] MEDS: FLUOXETINE 20 MG CAP PO ×2 (08:39→21:08)
[2018-05-10] MEDS: NIFEdipine (XL) 60 MG TAB PO (08:39)
[2018-05-10] MEDS: CALCIUM ACETATE 667 MG CAP PO ×3 (08:39→17:35)
[2018-05-10] MEDS: METOPROLOL (XL) 50 MG TAB PO ×2 (08:39→21:09)
[2018-05-10] MEDS: NEOMYC/POLYMYX/BACIT 30 GM OINT TOP (08:40)
[2018-05-10] MEDS: SOD CHLORIDE 0.9% 1,000 ML IV (12:06)
[2018-05-10] MEDS: LACTATED RINGER'S 1,000 ML IV (13:39)
[2018-05-10] MEDS: SOD FERRIC GLUC COMPLX 125 MG in SOD CHLORIDE 0.9% 100 ML IVPB (17:35)
[2018-05-10] MEDS: EPOETIN 10000 UNITS/1 ML INJ (ESRD) SC (17:36)
[2018-05-10] MEDS: FAMOTIDINE 20 MG TAB PO (21:08)
[2018-05-10] MEDS: ATORVASTATIN 10 MG TAB PO (21:09)
[2018-05-10] MEDS: INSULIN GLARGINE [LANTus] (100 UNITS/ML) SYG SC (21:22)
[2018-05-11] MEDS: LACTATED RINGER'S 1,000 ML IV ×3 (02:20→23:00)
[2018-05-11 07:16] LABS: ADD MAN DIFF? NO
[2018-05-11 07:22] LABS: WHITE BLOOD COUNT 8.3 10^3/ul (4.8-10.8)
[2018-05-11 07:22] LABS: BASOPHILS % 0.2 % (0.0-2.0); EOSINOPHILS # 0.2 10^3/ul (0.0-0.5); EOSINOPHILS % 1.8 % (0.0-7.0); HEMATOCRIT 28.8 % (37.0-47.0); HEMOGLOBIN 9.4 g/dl (12.0-16.0); LYMPHOCYTES # 0.9 10^3/ul (0.8-2.9); LYMPHOCYTES % 10.5 % (15.0-51.0); MEAN CORPUSCULAR HEMOGLOBIN 28.9 pg (29.0-33.0); MEAN CORPUSCULAR HGB CONC 32.6 g/dl (32.0-37.0); MEAN CORPUSCULAR VOLUME 88.6 fl (82.0-101.0); MONOCYTE # 0.4 10^3/ul (0.3-0.9); MONOCYTES % 4.6 % (0.0-11.0); NEUTROPHIL # 6.8 10^3/ul (1.6-7.5); NEUTROPHILS % 82.3 % (39.0-77.0); PLATELET COUNT 520 10^3/UL (140-415); RED BLOOD COUNT 3.25 10^6/ul (4.20-5.40); RED CELL DISTRIBUTION WIDTH 14.4 % (11.5-14.5)
[2018-05-11 07:48] LABS: ANION GAP 16 (8-16); BLOOD UREA NITROGEN 50 mg/dl (7-20); CALCIUM 8.7 mg/dl (8.4-10.2); CARBON DIOXIDE 24 mmol/L (21-31); CHLORIDE 100 mmol/L (97-110); GLUCOSE 61 mg/dl (70-220); POTASSIUM 3.8 mmol/L (3.5-5.1); SODIUM 136 mmol/L (135-144)
[2018-05-11] MEDS: ACCU-CHEK XX ×6 (08:06→20:47)
[2018-05-11] MEDS: PANTOPRAZOLE (EC) 40 MG TAB PO (08:24)
[2018-05-11] MEDS: CALCIUM ACETATE 667 MG CAP PO ×3 (08:24→17:37)
[2018-05-11] MEDS: LINAGLIPTIN 5 MG TABLET PO (08:25)
[2018-05-11] MEDS: FLUOXETINE 20 MG CAP PO ×2 (08:25→20:37)
[2018-05-11] MEDS: GABAPENTIN 300 MG CAP PO ×3 (08:25→20:39)
[2018-05-11] MEDS: NIFEdipine (XL) 60 MG TAB PO (08:25)
[2018-05-11] MEDS: METOPROLOL (XL) 50 MG TAB PO ×2 (08:26→20:37)
[2018-05-11] MEDS: COLLAGENASE 5 GM (UD JAR) TOP (08:26)
[2018-05-11] MEDS: NEOMYC/POLYMYX/BACIT 30 GM OINT TOP (08:26)
[2018-05-11] MEDS: INSULIN ASPART [NOVOLOG] 3 ML PEN SC ×3 (08:30→17:39)
[2018-05-11] MEDS: FAMOTIDINE 20 MG TAB PO (20:38)
[2018-05-11] MEDS: ATORVASTATIN 10 MG TAB PO (20:39)
[2018-05-11] MEDS: INSULIN GLARGINE [LANTus] (100 UNITS/ML) SYG SC (21:00)
[2018-05-12] MEDS: ACETAMINOPHEN 325 MG TAB PO (01:32)
[2018-05-12] MEDS: PANTOPRAZOLE (EC) 40 MG TAB PO (06:14)
[2018-05-12 07:03] LABS: ADD MAN DIFF? NO
[2018-05-12 07:07] LABS: BASOPHILS % 0.3 % (0.0-2.0); EOSINOPHILS # 0.1 10^3/ul (0.0-0.5); EOSINOPHILS % 2.2 % (0.0-7.0); HEMATOCRIT 26.2 % (37.0-47.0); HEMOGLOBIN 8.5 g/dl (12.0-16.0); LYMPHOCYTES # 0.9 10^3/ul (0.8-2.9); LYMPHOCYTES % 14.3 % (15.0-51.0); MEAN CORPUSCULAR HGB CONC 32.4 g/dl (32.0-37.0); MEAN CORPUSCULAR VOLUME 89.4 fl (82.0-101.0); MEAN PLATELET VOLUME 8.9 fl (7.4-10.4); MONOCYTE # 0.3 10^3/ul (0.3-0.9); MONOCYTES % 4.1 % (0.0-11.0); NEUTROPHILS % 78.5 % (39.0-77.0); PLATELET COUNT 460 10^3/UL (140-415); RED BLOOD COUNT 2.93 10^6/ul (4.20-5.40); RED CELL DISTRIBUTION WIDTH 14.6 % (11.5-14.5)
[2018-05-12 07:07] LABS: WHITE BLOOD COUNT 6.4 10^3/ul (4.8-10.8)
[2018-05-12] MEDS: ACCU-CHEK XX ×6 (07:42→20:55)
[2018-05-12 07:50] LABS: ALANINE AMINOTRANSFERASE 19 IU/L (13-69); ALBUMIN 2.7 g/dl (3.3-4.9); ALBUMIN/GLOBULIN RATIO 0.84; ALKALINE PHOSPHATASE 97 IU/L (42-121); ANION GAP 15 (8-16); ASPARTATE AMINO TRANSFERASE 15 IU/L (15-46); BILIRUBIN,INDIRECT 0.1 mg/dl (0-1.1); BILIRUBIN,TOTAL 0.1 mg/dl (0.2-1.3); BLOOD UREA NITROGEN 52 mg/dl (7-20); CALCIUM 8.3 mg/dl (8.4-10.2); CARBON DIOXIDE 25 mmol/L (21-31); CHLORIDE 98 mmol/L (97-110); CREATININE 4.33 mg/dl (0.44-1.00); GLUCOSE 142 mg/dl (70-220); POTASSIUM 3.9 mmol/L (3.5-5.1); SODIUM 134 mmol/L (135-144); TOTAL PROTEIN 5.9 g/dl (6.1-8.1)
[2018-05-12] MEDS: CALCIUM ACETATE 667 MG CAP PO ×3 (08:14→17:29)
[2018-05-12] MEDS: GABAPENTIN 300 MG CAP PO ×3 (08:14→20:57)
[2018-05-12] MEDS: LINAGLIPTIN 5 MG TABLET PO (08:15)
[2018-05-12] MEDS: COLLAGENASE 5 GM (UD JAR) TOP (08:15)
[2018-05-12] MEDS: NEOMYC/POLYMYX/BACIT 30 GM OINT TOP (08:15)
[2018-05-12] MEDS: FLUOXETINE 20 MG CAP PO ×2 (08:15→20:57)
[2018-05-12] MEDS: NIFEdipine (XL) 60 MG TAB PO (08:15)
[2018-05-12] MEDS: INSULIN ASPART [NOVOLOG] 3 ML PEN SC ×3 (08:17→17:31)
[2018-05-12] MEDS: METOPROLOL (XL) 50 MG TAB PO ×2 (08:20→20:58)
[2018-05-12] MEDS: POLYETHYLENE GLYCOL 17 GM PACKET PO (10:03)
[2018-05-12] MEDS: LACTATED RINGER'S 1,000 ML IV (13:17)
[2018-05-12] MEDS: FAMOTIDINE 20 MG TAB PO (20:57)
[2018-05-12] MEDS: ATORVASTATIN 10 MG TAB PO (20:57)
[2018-05-12] MEDS: INSULIN GLARGINE [LANTus] (100 UNITS/ML) SYG SC (21:05)
[2018-05-13] MEDS: PANTOPRAZOLE (EC) 40 MG TAB PO ×2 (06:02→07:31)
[2018-05-13 07:20] LABS: ADD MAN DIFF? NO
[2018-05-13 07:27] LABS: WHITE BLOOD COUNT 7.8 10^3/ul (4.8-10.8)
[2018-05-13 07:27] LABS: BASOPHILS % 0.4 % (0.0-2.0); EOSINOPHILS # 0.2 10^3/ul (0.0-0.5); EOSINOPHILS % 2.1 % (0.0-7.0); HEMATOCRIT 28.4 % (37.0-47.0); HEMOGLOBIN 9.2 g/dl (12.0-16.0); LYMPHOCYTES # 0.9 10^3/ul (0.8-2.9); LYMPHOCYTES % 11.3 % (15.0-51.0); MEAN CORPUSCULAR HEMOGLOBIN 29.1 pg (29.0-33.0); MEAN CORPUSCULAR HGB CONC 32.4 g/dl (32.0-37.0); MEAN CORPUSCULAR VOLUME 89.9 fl (82.0-101.0); MEAN PLATELET VOLUME 8.9 fl (7.4-10.4); MONOCYTE # 0.3 10^3/ul (0.3-0.9); MONOCYTES % 3.7 % (0.0-11.0); NEUTROPHIL # 6.4 10^3/ul (1.6-7.5); PLATELET COUNT 492 10^3/UL (140-415); RED BLOOD COUNT 3.16 10^6/ul (4.20-5.40); RED CELL DISTRIBUTION WIDTH 14.7 % (11.5-14.5)
[2018-05-13] MEDS: ACCU-CHEK XX ×6 (07:38→20:22)
[2018-05-13 07:51] LABS: ANION GAP 13 (8-16); CARBON DIOXIDE 27 mmol/L (21-31); CHLORIDE 98 mmol/L (97-110); POTASSIUM 3.8 mmol/L (3.5-5.1); SODIUM 134 mmol/L (135-144)
[2018-05-13 08:05] LABS: BLOOD UREA NITROGEN 54 mg/dl (7-20); CALCIUM 8.5 mg/dl (8.4-10.2); GLUCOSE 114 mg/dl (70-220)
[2018-05-13] MEDS: METOPROLOL (XL) 50 MG TAB PO ×2 (08:17→20:11)
[2018-05-13] MEDS: NIFEdipine (XL) 60 MG TAB PO (08:19)
[2018-05-13] MEDS: FLUOXETINE 20 MG CAP PO ×2 (08:19→20:10)
[2018-05-13] MEDS: GABAPENTIN 300 MG CAP PO ×3 (08:19→20:10)
[2018-05-13] MEDS: CALCIUM ACETATE 667 MG CAP PO ×3 (08:20→17:14)
[2018-05-13] MEDS: LINAGLIPTIN 5 MG TABLET PO (08:20)
[2018-05-13] MEDS: POLYETHYLENE GLYCOL 17 GM PACKET PO (08:21)
[2018-05-13] MEDS: NEOMYC/POLYMYX/BACIT 30 GM OINT TOP (08:22)
[2018-05-13] MEDS: COLLAGENASE 5 GM (UD JAR) TOP (08:22)
[2018-05-13] MEDS: INSULIN ASPART [NOVOLOG] 3 ML PEN SC ×3 (08:23→17:18)
[2018-05-13] MEDS: EPOETIN 10000 UNITS/1 ML INJ (ESRD) SC (17:14)
[2018-05-13] MEDS: FAMOTIDINE 20 MG TAB PO (20:09)
[2018-05-13] MEDS: ATORVASTATIN 10 MG TAB PO (20:09)
[2018-05-13] MEDS: INSULIN GLARGINE [LANTus] (100 UNITS/ML) SYG SC (20:21)
[2018-05-14] MEDS: PANTOPRAZOLE (EC) 40 MG TAB PO (06:16)
[2018-05-14 06:38] LABS: ANION GAP 13 (8-16); BLOOD UREA NITROGEN 56 mg/dl (7-20); CALCIUM 8.4 mg/dl (8.4-10.2); CARBON DIOXIDE 27 mmol/L (21-31); CHLORIDE 97 mmol/L (97-110); CREATININE 4.47 mg/dl (0.44-1.00); GLUCOSE 67 mg/dl (70-220); POTASSIUM 3.6 mmol/L (3.5-5.1); SODIUM 133 mmol/L (135-144)
[2018-05-14] MEDS: ACCU-CHEK XX ×6 (07:56→19:55)
[2018-05-14] MEDS: CALCIUM ACETATE 667 MG CAP PO ×3 (07:58→17:47)
[2018-05-14] MEDS: LINAGLIPTIN 5 MG TABLET PO (07:59)
[2018-05-14] MEDS: FLUOXETINE 20 MG CAP PO ×2 (07:59→21:02)
[2018-05-14] MEDS: NIFEdipine (XL) 60 MG TAB PO (08:00)
[2018-05-14] MEDS: GABAPENTIN 300 MG CAP PO ×3 (08:00→21:03)
[2018-05-14] MEDS: METOPROLOL (XL) 50 MG TAB PO ×2 (08:01→21:03)
[2018-05-14] MEDS: COLLAGENASE 5 GM (UD JAR) TOP (08:01)
[2018-05-14] MEDS: NEOMYC/POLYMYX/BACIT 30 GM OINT TOP (08:01)
[2018-05-14] MEDS: POLYETHYLENE GLYCOL 17 GM PACKET PO (08:01)
[2018-05-14] MEDS: INSULIN ASPART [NOVOLOG] 3 ML PEN SC ×4 (09:34→21:15)
[2018-05-14] MEDS: BUPROPION (XL) 150 MG TAB PO (09:36)
[2018-05-14] MEDS: ACETAMINOPHEN 325 MG TAB PO (17:47)
[2018-05-14 18:27] LABS: PTH CALCIUM 8.4 mg/dL (8.6-10.4)
[2018-05-14] MEDS: ATORVASTATIN 10 MG TAB PO (21:02)
[2018-05-14] MEDS: FAMOTIDINE 20 MG TAB PO (21:03)
[2018-05-14] MEDS: INSULIN GLARGINE [LANTus] (100 UNITS/ML) SYG SC (21:16)
[2018-05-14] MEDS: LORAZEPAM 0.5 MG TAB PO (22:07)
[2018-05-15] MEDS: PANTOPRAZOLE (EC) 40 MG TAB PO (06:19)
[2018-05-15] MEDS: ACETAMINOPHEN 325 MG TAB PO ×2 (06:19→17:42)
[2018-05-15] MEDS: ACCU-CHEK XX ×6 (07:25→20:48)
[2018-05-15] MEDS: METOPROLOL (XL) 50 MG TAB PO ×2 (08:53→20:33)
[2018-05-15] MEDS: LINAGLIPTIN 5 MG TABLET PO (08:54)
[2018-05-15] MEDS: FLUOXETINE 20 MG CAP PO ×2 (08:54→20:31)
[2018-05-15] MEDS: NIFEdipine (XL) 60 MG TAB PO (08:54)
[2018-05-15] MEDS: GABAPENTIN 300 MG CAP PO ×2 (08:54→12:07)
[2018-05-15] MEDS: POLYETHYLENE GLYCOL 17 GM PACKET PO (08:55)
[2018-05-15] MEDS: NEOMYC/POLYMYX/BACIT 30 GM OINT TOP (08:55)
[2018-05-15] MEDS: CALCIUM ACETATE 667 MG CAP PO ×3 (08:55→17:42)
[2018-05-15] MEDS: COLLAGENASE 5 GM (UD JAR) TOP (08:55)
[2018-05-15] MEDS: BUPROPION (XL) 150 MG TAB PO (08:55)
[2018-05-15] MEDS: INSULIN ASPART [NOVOLOG] 3 ML PEN SC ×7 (09:08→20:49)
[2018-05-15] MEDS: EPOETIN 10000 UNITS/1 ML INJ (ESRD) SC (17:52)
[2018-05-15] MEDS: INSULIN GLARGINE [LANTus] (100 UNITS/ML) SYG SC (20:00)
[2018-05-15] MEDS: ATORVASTATIN 10 MG TAB PO (20:33)
[2018-05-15] MEDS: FAMOTIDINE 20 MG TAB PO (20:33)
[2018-05-15] MEDS: HYDROCODONE/APAP (5/325) TAB PO (20:34)
[2018-05-15] MEDS: GABAPENTIN 400 MG CAP PO (21:37)
[2018-05-16 00:04] LABS: PTH CALCIUM 8.1 mg/dL (8.6-10.4); PTH INTACT 44 pg/mL (14-64)
[2018-05-16 06:10] LABS: ADD MAN DIFF? NO
[2018-05-16] MEDS: PANTOPRAZOLE (EC) 40 MG TAB PO (06:13)
[2018-05-16 06:19] LABS: BASOPHILS % 0.5 % (0.0-2.0); EOSINOPHILS # 0.1 10^3/ul (0.0-0.5); EOSINOPHILS % 1.8 % (0.0-7.0); HEMATOCRIT 29.3 % (37.0-47.0); HEMOGLOBIN 9.3 g/dl (12.0-16.0); LYMPHOCYTES # 0.7 10^3/ul (0.8-2.9); LYMPHOCYTES % 10.7 % (15.0-51.0); MEAN CORPUSCULAR HGB CONC 31.7 g/dl (32.0-37.0); MEAN CORPUSCULAR VOLUME 91.3 fl (82.0-101.0); MEAN PLATELET VOLUME 8.6 fl (7.4-10.4); MONOCYTE # 0.3 10^3/ul (0.3-0.9); MONOCYTES % 3.8 % (0.0-11.0); NEUTROPHIL # 5.4 10^3/ul (1.6-7.5); NEUTROPHILS % 82.3 % (39.0-77.0); PLATELET COUNT 443 10^3/UL (140-415); RED BLOOD COUNT 3.21 10^6/ul (4.20-5.40); RED CELL DISTRIBUTION WIDTH 15.9 % (11.5-14.5)
[2018-05-16 06:19] LABS: WHITE BLOOD COUNT 6.6 10^3/ul (4.8-10.8)
[2018-05-16 06:43] LABS: ALANINE AMINOTRANSFERASE 23 IU/L (13-69); ALBUMIN 2.8 g/dl (3.3-4.9); ALKALINE PHOSPHATASE 101 IU/L (42-121); ANION GAP 17 (8-16); ASPARTATE AMINO TRANSFERASE 16 IU/L (15-46); BLOOD UREA NITROGEN 62 mg/dl (7-20); CALCIUM 8.5 mg/dl (8.4-10.2); CARBON DIOXIDE 27 mmol/L (21-31); CHLORIDE 94 mmol/L (97-110); CREATININE 4.55 mg/dl (0.44-1.00); GLUCOSE 84 mg/dl (70-220); POTASSIUM 4.4 mmol/L (3.5-5.1); SODIUM 134 mmol/L (135-144); TOTAL PROTEIN 5.9 g/dl (6.1-8.1)
[2018-05-16 07:00] LABS: B-TYPE NATRIURETIC PEPTIDE 13800 PG/ML (0-450)
[2018-05-16] MEDS: INSULIN ASPART [NOVOLOG] 3 ML PEN SC ×4 (07:55→11:43)
[2018-05-16] MEDS: CALCIUM ACETATE 667 MG CAP PO ×2 (08:03→11:36)
[2018-05-16] MEDS: ACCU-CHEK XX ×4 (08:05→13:58)
[2018-05-16] MEDS: COLLAGENASE 5 GM (UD JAR) TOP (09:41)
[2018-05-16] MEDS: NEOMYC/POLYMYX/BACIT 30 GM OINT TOP (09:42)
[2018-05-16] MEDS: POLYETHYLENE GLYCOL 17 GM PACKET PO (09:42)
[2018-05-16] MEDS: GABAPENTIN 400 MG CAP PO ×2 (09:42→13:56)
[2018-05-16] MEDS: FLUOXETINE 20 MG CAP PO (09:42)
[2018-05-16] MEDS: METOPROLOL (XL) 50 MG TAB PO (09:43)
[2018-05-16] MEDS: LINAGLIPTIN 5 MG TABLET PO (09:44)
[2018-05-16] MEDS: NIFEdipine (XL) 60 MG TAB PO (09:44)
[2018-05-16] MEDS: BUPROPION (XL) 150 MG TAB PO (09:44)
[2018-05-16 09:46] LABS: PTH INTACT 43 pg/mL (14-64)
== END 2018-05-16 17:45 | DRG 86 ==
LOC: TEL 05-08 04:59 → E/R 10:19 → TEL 12:46
PROC: 30233N1 Transfusion of Nonautologous Red Blood Cells into Peripheral Vein, Percutaneous Approach (ICD-10-PCS; principal; 2018-05-07)
DX: S06.5X0A Traumatic subdural hemorrhage without loss of consciousness, initial encounter (principal); N17.9 Acute kidney failure, unspecified; M33.90 Dermatopolymyositis, unspecified, organ involvement unspecified; I12.9 Hypertensive chronic kidney disease with stage 1 through stage 4 chronic kidney disease, or unspecified chronic kidney disease; D63.1 Anemia in chronic kidney disease; F32.9 Major depressive disorder, single episode, unspecified; K21.9 Gastro-esophageal reflux disease without esophagitis; N18.2 Chronic kidney disease, stage 2 (mild); M54.5 Low back pain; F41.1 Generalized anxiety disorder; S00.83XA Contusion of other part of head, initial encounter; J45.20 Mild intermittent asthma, uncomplicated; E78.00 Pure hypercholesterolemia, unspecified; W01.0XXA Fall on same level from slipping, tripping and stumbling without subsequent striking against object, initial encounter; Y92.89 Other specified places as the place of occurrence of the external cause; E11.21 Type 2 diabetes mellitus with diabetic nephropathy; Z79.4 Long term (current) use of insulin; E86.0 Dehydration; M54.31 Sciatica, right side; M54.32 Sciatica, left side; E83.39 Other disorders of phosphorus metabolism
CPT/HCPCS: 36415; 36430; 70450; 70486; 71045; 72125; 76775; 80048; 80053; 81001; 81003; 82330; 82550; 82553; 82570; 82728; 82962; 83036; 83540; 83735; 83880; 83970; 84100; 84155; 84165; 84300; 84484; 85025; 85610; 85730; 86850; 86900; 86901; 86920; 89190; 93005; 97110; 97116; 97163; 97530; 99291-25

== ENCOUNTER 2018-05-16 18:02 | Inpatient (IN) | payer MEDICARE, OTHER ==
[2018-05-16] MEDS ORDERED: PENDING SANTYL ORDER FOR WOUND CARE XX (18:30)
[2018-05-16] MEDS ORDERED: LACTULOSE 30ML CUP PO (19:00)
[2018-05-16] MEDS ORDERED: DEXTROSE 50% 50 ML SYRINGE IV ×2 (19:30)
[2018-05-16] MEDS ORDERED: GLUCAGON 1 MG INJ IM (19:30)
[2018-05-16] MEDS ORDERED: GLUCOSE GEL 15 GRAM TUBE PO ×2 (19:30)
[2018-05-16] MEDS ORDERED: GLUCOSE GEL 15 GRAM TUBE BUCCAL (19:30)
[2018-05-16] MEDS: ACCU-CHEK XX (19:35)
[2018-05-16] MEDS: ATORVASTATIN 10 MG TAB PO (20:53)
[2018-05-16] MEDS: METOPROLOL (XL) 50 MG TAB PO (21:00)
[2018-05-16] MEDS: LORAZEPAM 0.5 MG TAB PO (21:56)
[2018-05-17 00:59] LABS: ADD UMIC YES; UR ASCORBIC ACID NEGATIVE (NEGATIVE); UR BACTERIA FEW /HPF (NONE SEEN); UR BILIRUBIN (Dip) NEGATIVE (NEGATIVE); UR BLOOD (Dip) 1+ mg/dL (NEGATIVE); UR CLARITY CLOUDY (CLEAR); UR COLOR YELLOW (YELLOW); UR GLUCOSE (Dip) NEGATIVE (NEGATIVE); UR KETONES (Dip) NEGATIVE (NEGATIVE); UR LEUKOCYTE ESTERASE (Dip) 3+ Leu/ul (NEGATIVE); UR NITRITE (Dip) NEGATIVE (NEGATIVE); UR RBC 12 /HPF (0-5); UR SPECIFIC GRAVITY (Dip) 1.009 (1.003-1.030); UR SQUAMOUS EPITHELIAL CELL FEW /HPF (FEW); UR TOTAL PROTEIN (Dip) 2+ mg/dl (NEGATIVE); UR UROBILINOGEN (Dip) NEGATIVE (NEGATIVE); UR WBC > 182 /HPF (0-5)
[2018-05-17] MEDS: FUROSEMIDE 40 MG TAB PO (06:51)
[2018-05-17 06:55] LABS: ADD MAN DIFF? NO
[2018-05-17] MEDS ORDERED: LACTULOSE 30ML CUP PO (07:00)
[2018-05-17 07:05] LABS: WHITE BLOOD COUNT 5.1 10^3/ul (4.8-10.8)
[2018-05-17 07:05] LABS: ABNORMAL IP MESSAGE 1; BASOPHILS % 0.4 % (0.0-2.0); EOSINOPHILS # 0.1 10^3/ul (0.0-0.5); EOSINOPHILS % 1.6 % (0.0-7.0); HEMATOCRIT 26.4 % (37.0-47.0); HEMOGLOBIN 8.4 g/dl (12.0-16.0); LYMPHOCYTES # 0.6 10^3/ul (0.8-2.9); LYMPHOCYTES % 10.8 % (15.0-51.0); MEAN CORPUSCULAR HGB CONC 31.8 g/dl (32.0-37.0); MEAN PLATELET VOLUME 8.8 fl (7.4-10.4); MONOCYTE # 0.2 10^3/ul (0.3-0.9); MONOCYTES % 3.9 % (0.0-11.0); NEUTROPHIL # 4.2 10^3/ul (1.6-7.5); NEUTROPHILS % 82.3 % (39.0-77.0); PLATELET COUNT 410 10^3/UL (140-415); RED CELL DISTRIBUTION WIDTH 16.3 % (11.5-14.5)
[2018-05-17] MEDS: ACCU-CHEK XX ×8 (07:05→21:25)
[2018-05-17 07:10] LABS: POSITIVE DIFF @See below
[2018-05-17 07:28] LABS: ALANINE AMINOTRANSFERASE 17 IU/L (13-69); ALKALINE PHOSPHATASE 102 IU/L (42-121); ANION GAP 15 (8-16); ASPARTATE AMINO TRANSFERASE 17 IU/L (15-46); BLOOD UREA NITROGEN 71 mg/dl (7-20); CALCIUM 8.1 mg/dl (8.4-10.2); CARBON DIOXIDE 26 mmol/L (21-31); CHLORIDE 94 mmol/L (97-110); CREATININE 4.63 mg/dl (0.44-1.00); GLUCOSE 225 mg/dl (70-220); POTASSIUM 4.5 mmol/L (3.5-5.1); SODIUM 130 mmol/L (135-144)
[2018-05-17] MEDS: INSULIN ASPART [NOVOLOG] 3 ML PEN SC ×3 (08:14→17:43)
[2018-05-17] MEDS: HYDROCODONE/APAP (5/325) TAB PO (08:14)
[2018-05-17] MEDS: CALCIUM ACETATE 667 MG CAP PO ×3 (08:14→17:42)
[2018-05-17] MEDS ORDERED: SENNA TAB PO (09:00)
[2018-05-17] MEDS ORDERED: DOCUSATE SODIUM 100 MG CAP PO (09:00)
[2018-05-17] MEDS ORDERED: MAGNESIUM HYDROXIDE 30ML CUP PO (09:00)
[2018-05-17] MEDS: COLLAGENASE 5 GM (UD JAR) TOP (10:05)
[2018-05-17] MEDS: NIFEdipine (XL) 60 MG TAB PO (10:06)
[2018-05-17] MEDS: NEOMYC/POLYMYX/BACIT 30 GM OINT TOP (10:06)
[2018-05-17] MEDS: BUPROPION (XL) 150 MG TAB PO (10:06)
[2018-05-17] MEDS: DOCUSATE SODIUM 100 MG CAP PO ×2 (10:07→21:18)
[2018-05-17] MEDS: METOPROLOL (XL) 50 MG TAB PO ×2 (10:07→21:21)
[2018-05-17] MEDS: FOSFOMYCIN 3 GM PACKET PO (10:49)
[2018-05-17] MEDS: LINAGLIPTIN 5 MG TABLET PO (17:42)
[2018-05-17] MEDS: SENNA TAB PO (21:18)
[2018-05-17] MEDS: ACETYLCYSTEINE 600 MG CAP PO (21:19)
[2018-05-17] MEDS: ATORVASTATIN 10 MG TAB PO (21:19)
[2018-05-17] MEDS: INSULIN GLARGINE [LANTus] (100 UNITS/ML) SYG SC (21:25)
[2018-05-18 06:45] LABS: ADD MAN DIFF? NO
[2018-05-18 06:57] LABS: BASOPHILS % 0.2 % (0.0-2.0); EOSINOPHILS # 0.1 10^3/ul (0.0-0.5); EOSINOPHILS % 2.4 % (0.0-7.0); HEMATOCRIT 25.6 % (37.0-47.0); HEMOGLOBIN 8.2 g/dl (12.0-16.0); LYMPHOCYTES # 0.8 10^3/ul (0.8-2.9); LYMPHOCYTES % 16.5 % (15.0-51.0); MEAN CORPUSCULAR HEMOGLOBIN 29.7 pg (29.0-33.0); MEAN CORPUSCULAR VOLUME 92.8 fl (82.0-101.0); MEAN PLATELET VOLUME 9.1 fl (7.4-10.4); MONOCYTE # 0.3 10^3/ul (0.3-0.9); NEUTROPHIL # 3.7 10^3/ul (1.6-7.5); NEUTROPHILS % 73.9 % (39.0-77.0); PLATELET COUNT 419 10^3/UL (140-415); RED BLOOD COUNT 2.76 10^6/ul (4.20-5.40); RED CELL DISTRIBUTION WIDTH 16.6 % (11.5-14.5)
[2018-05-18] MEDS: FUROSEMIDE 40 MG TAB PO (06:57)
[2018-05-18] MEDS: ACCU-CHEK XX ×10 (07:05→20:48)
[2018-05-18 07:15] LABS: ALANINE AMINOTRANSFERASE 24 IU/L (13-69); ALBUMIN 2.9 g/dl (3.3-4.9); ALBUMIN/GLOBULIN RATIO 0.85; ALKALINE PHOSPHATASE 127 IU/L (42-121); ANION GAP 14 (8-16); ASPARTATE AMINO TRANSFERASE 20 IU/L (15-46); BLOOD UREA NITROGEN 72 mg/dl (7-20); CALCIUM 8.1 mg/dl (8.4-10.2); CARBON DIOXIDE 26 mmol/L (21-31); CHLORIDE 93 mmol/L (97-110); CREATININE 5.05 mg/dl (0.44-1.00); GLUCOSE 103 mg/dl (70-220); POTASSIUM 4.3 mmol/L (3.5-5.1); SODIUM 129 mmol/L (135-144); TOTAL PROTEIN 6.3 g/dl (6.1-8.1)
[2018-05-18] MEDS: INSULIN ASPART [NOVOLOG] 3 ML PEN SC ×3 (08:26→18:01)
[2018-05-18] MEDS: ACETYLCYSTEINE 600 MG CAP PO ×2 (08:28→20:47)
[2018-05-18] MEDS: DOCUSATE SODIUM 100 MG CAP PO ×2 (08:28→20:48)
[2018-05-18] MEDS: BUPROPION (XL) 150 MG TAB PO (08:29)
[2018-05-18] MEDS: LINAGLIPTIN 5 MG TABLET PO (08:29)
[2018-05-18] MEDS: CALCIUM ACETATE 667 MG CAP PO ×3 (08:29→17:52)
[2018-05-18] MEDS: COLLAGENASE 5 GM (UD JAR) TOP (08:30)
[2018-05-18] MEDS: NEOMYC/POLYMYX/BACIT 30 GM OINT TOP (08:30)
[2018-05-18] MEDS: NIFEdipine (XL) 60 MG TAB PO ×2 (08:37→13:24)
[2018-05-18] MEDS: METOPROLOL (XL) 50 MG TAB PO ×3 (08:37→20:56)
[2018-05-18] MEDS: ACETAMINOPHEN 325 MG TAB PO (17:52)
[2018-05-18] MEDS: ATORVASTATIN 10 MG TAB PO (20:47)
[2018-05-18] MEDS: SENNA TAB PO (20:48)
[2018-05-18] MEDS: INSULIN GLARGINE [LANTus] (100 UNITS/ML) SYG SC (20:52)
[2018-05-18] MEDS: LORAZEPAM 0.5 MG TAB PO (20:56)
[2018-05-19] MEDS: ACCU-CHEK XX ×10 (07:05→21:52)
[2018-05-19 07:18] LABS: ADD MAN DIFF? NO
[2018-05-19 07:19] LABS: BASOPHILS % 0.4 % (0.0-2.0); EOSINOPHILS # 0.2 10^3/ul (0.0-0.5); EOSINOPHILS % 2.7 % (0.0-7.0); HEMOGLOBIN 8.8 g/dl (12.0-16.0); LYMPHOCYTES % 18.3 % (15.0-51.0); MEAN CORPUSCULAR HEMOGLOBIN 29.2 pg (29.0-33.0); MEAN CORPUSCULAR HGB CONC 31.4 g/dl (32.0-37.0); MEAN PLATELET VOLUME 8.8 fl (7.4-10.4); MONOCYTE # 0.3 10^3/ul (0.3-0.9); MONOCYTES % 5.5 % (0.0-11.0); NEUTROPHILS % 72.4 % (39.0-77.0); PLATELET COUNT 428 10^3/UL (140-415); RED BLOOD COUNT 3.01 10^6/ul (4.20-5.40); RED CELL DISTRIBUTION WIDTH 16.7 % (11.5-14.5)
[2018-05-19 07:19] LABS: WHITE BLOOD COUNT 5.5 10^3/ul (4.8-10.8)
[2018-05-19 07:40] LABS: ALANINE AMINOTRANSFERASE 23 IU/L (13-69); ALBUMIN 2.9 g/dl (3.3-4.9); ALBUMIN/GLOBULIN RATIO 0.85; ALKALINE PHOSPHATASE 134 IU/L (42-121); ANION GAP 18 (8-16); ASPARTATE AMINO TRANSFERASE 22 IU/L (15-46); BLOOD UREA NITROGEN 71 mg/dl (7-20); CALCIUM 8.5 mg/dl (8.4-10.2); CARBON DIOXIDE 26 mmol/L (21-31); CHLORIDE 91 mmol/L (97-110); CREATININE 4.95 mg/dl (0.44-1.00); GLUCOSE 157 mg/dl (70-220); POTASSIUM 4.2 mmol/L (3.5-5.1); SODIUM 131 mmol/L (135-144); TOTAL PROTEIN 6.3 g/dl (6.1-8.1)
[2018-05-19] MEDS: CALCIUM ACETATE 667 MG CAP PO ×3 (08:14→17:50)
[2018-05-19] MEDS: INSULIN ASPART [NOVOLOG] 3 ML PEN SC ×3 (08:17→17:43)
[2018-05-19] MEDS: DOCUSATE SODIUM 100 MG CAP PO ×2 (09:57→21:06)
[2018-05-19] MEDS: FUROSEMIDE 40 MG TAB PO (09:58)
[2018-05-19] MEDS: ACETYLCYSTEINE 600 MG CAP PO ×2 (09:58→21:06)
[2018-05-19] MEDS: LINAGLIPTIN 5 MG TABLET PO (09:59)
[2018-05-19] MEDS: NIFEdipine (XL) 60 MG TAB PO (09:59)
[2018-05-19] MEDS: METOPROLOL (XL) 50 MG TAB PO ×2 (09:59→21:07)
[2018-05-19] MEDS: BUPROPION (XL) 150 MG TAB PO (10:00)
[2018-05-19] MEDS: NEOMYC/POLYMYX/BACIT 30 GM OINT TOP (10:00)
[2018-05-19] MEDS: COLLAGENASE 5 GM (UD JAR) TOP (10:00)
[2018-05-19] MEDS: SENNA TAB PO (21:00)
[2018-05-19] MEDS: ATORVASTATIN 10 MG TAB PO (21:06)
[2018-05-19] MEDS: INSULIN GLARGINE [LANTus] (100 UNITS/ML) SYG SC (21:11)
[2018-05-20] MEDS: ACETAMINOPHEN 325 MG TAB PO (06:10)
[2018-05-20 08:16] LABS: ALANINE AMINOTRANSFERASE 20 IU/L (13-69); ALBUMIN 3.1 g/dl (3.3-4.9); ALBUMIN/GLOBULIN RATIO 0.88; ALKALINE PHOSPHATASE 134 IU/L (42-121); ANION GAP 17 (8-16); ASPARTATE AMINO TRANSFERASE 25 IU/L (15-46); BILIRUBIN,INDIRECT 0.1 mg/dl (0-1.1); BILIRUBIN,TOTAL 0.1 mg/dl (0.2-1.3); BLOOD UREA NITROGEN 70 mg/dl (7-20); CALCIUM 9.2 mg/dl (8.4-10.2); CARBON DIOXIDE 27 mmol/L (21-31); CHLORIDE 93 mmol/L (97-110); CREATININE 5.21 mg/dl (0.44-1.00); GLUCOSE 66 mg/dl (70-220); POTASSIUM 4.4 mmol/L (3.5-5.1); SODIUM 133 mmol/L (135-144); TOTAL PROTEIN 6.6 g/dl (6.1-8.1)
[2018-05-20] MEDS: CALCIUM ACETATE 667 MG CAP PO ×3 (08:39→17:55)
[2018-05-20] MEDS: COLLAGENASE 5 GM (UD JAR) TOP (08:39)
[2018-05-20] MEDS: ACETYLCYSTEINE 600 MG CAP PO ×2 (08:39→21:50)
[2018-05-20] MEDS: METOPROLOL (XL) 50 MG TAB PO ×2 (08:40→21:52)
[2018-05-20] MEDS: FUROSEMIDE 40 MG TAB PO (08:40)
[2018-05-20] MEDS: NEOMYC/POLYMYX/BACIT 30 GM OINT TOP (08:41)
[2018-05-20] MEDS: BUPROPION (XL) 150 MG TAB PO (08:41)
[2018-05-20] MEDS: ACCU-CHEK XX ×2 (08:41)
[2018-05-20] MEDS: INSULIN ASPART [NOVOLOG] 3 ML PEN SC ×3 (08:41→17:55)
[2018-05-20] MEDS: NIFEdipine (XL) 60 MG TAB PO (08:41)
[2018-05-20] MEDS: LINAGLIPTIN 5 MG TABLET PO (08:41)
[2018-05-20] MEDS: DOCUSATE SODIUM 100 MG CAP PO ×2 (08:43→21:50)
[2018-05-20] MEDS: ONDANSETRON 4 MG TAB PO (20:08)
[2018-05-20] MEDS: SENNA TAB PO (21:50)
[2018-05-20] MEDS: ATORVASTATIN 10 MG TAB PO (21:50)
[2018-05-20] MEDS: INSULIN GLARGINE [LANTus] (100 UNITS/ML) SYG SC (21:59)
[2018-05-21 06:49] LABS: ADD MAN DIFF? NO
[2018-05-21 06:51] LABS: WHITE BLOOD COUNT 5.6 10^3/ul (4.8-10.8)
[2018-05-21 06:51] LABS: BASOPHILS % 0.2 % (0.0-2.0); EOSINOPHILS # 0.1 10^3/ul (0.0-0.5); EOSINOPHILS % 2.2 % (0.0-7.0); HEMATOCRIT 29.8 % (37.0-47.0); HEMOGLOBIN 9.5 g/dl (12.0-16.0); LYMPHOCYTES # 0.8 10^3/ul (0.8-2.9); LYMPHOCYTES % 14.8 % (15.0-51.0); MEAN CORPUSCULAR HEMOGLOBIN 29.7 pg (29.0-33.0); MEAN CORPUSCULAR HGB CONC 31.9 g/dl (32.0-37.0); MEAN CORPUSCULAR VOLUME 93.1 fl (82.0-101.0); MEAN PLATELET VOLUME 8.5 fl (7.4-10.4); MONOCYTE # 0.2 10^3/ul (0.3-0.9); MONOCYTES % 4.3 % (0.0-11.0); NEUTROPHIL # 4.3 10^3/ul (1.6-7.5); PLATELET COUNT 430 10^3/UL (140-415); RED CELL DISTRIBUTION WIDTH 17.3 % (11.5-14.5)
[2018-05-21 07:24] LABS: ALANINE AMINOTRANSFERASE 19 IU/L (13-69); ALBUMIN 3.1 g/dl (3.3-4.9); ALBUMIN/GLOBULIN RATIO 0.88; ALKALINE PHOSPHATASE 136 IU/L (42-121); ANION GAP 18 (8-16); ASPARTATE AMINO TRANSFERASE 22 IU/L (15-46); BLOOD UREA NITROGEN 67 mg/dl (7-20); CALCIUM 9.5 mg/dl (8.4-10.2); CARBON DIOXIDE 28 mmol/L (21-31); CHLORIDE 94 mmol/L (97-110); CREATININE 5.35 mg/dl (0.44-1.00); GLUCOSE 110 mg/dl (70-220); SODIUM 136 mmol/L (135-144); TOTAL PROTEIN 6.6 g/dl (6.1-8.1)
[2018-05-21] MEDS: ACETAMINOPHEN 325 MG TAB PO ×2 (07:49→14:56)
[2018-05-21] MEDS: INSULIN ASPART [NOVOLOG] 3 ML PEN SC ×3 (08:09→17:38)
[2018-05-21] MEDS: BUPROPION (XL) 150 MG TAB PO (08:29)
[2018-05-21] MEDS: ACETYLCYSTEINE 600 MG CAP PO (08:29)
[2018-05-21] MEDS: FUROSEMIDE 40 MG TAB PO (08:31)
[2018-05-21] MEDS: NIFEdipine (XL) 60 MG TAB PO (08:32)
[2018-05-21] MEDS: DOCUSATE SODIUM 100 MG CAP PO ×2 (08:34→21:27)
[2018-05-21] MEDS: CALCIUM ACETATE 667 MG CAP PO ×3 (08:35→17:35)
[2018-05-21] MEDS: METOPROLOL (XL) 50 MG TAB PO ×2 (08:36→21:28)
[2018-05-21] MEDS: NEOMYC/POLYMYX/BACIT 30 GM OINT TOP (08:37)
[2018-05-21] MEDS: LINAGLIPTIN 5 MG TABLET PO (08:37)
[2018-05-21] MEDS: COLLAGENASE 5 GM (UD JAR) TOP (08:37)
[2018-05-21] MEDS: ATORVASTATIN 10 MG TAB PO (21:27)
[2018-05-21] MEDS: SENNA TAB PO (21:28)
[2018-05-21] MEDS: MAGNESIUM HYDROXIDE 30ML CUP PO (21:28)
[2018-05-21] MEDS: INSULIN GLARGINE [LANTus] (100 UNITS/ML) SYG SC (21:32)
[2018-05-22] MEDS: ACETAMINOPHEN 325 MG TAB PO (01:49)
[2018-05-22] MEDS: INSULIN ASPART [NOVOLOG] 3 ML PEN SC ×3 (07:35→17:31)
[2018-05-22] MEDS: LINAGLIPTIN 5 MG TABLET PO (07:57)
[2018-05-22] MEDS: CALCIUM ACETATE 667 MG CAP PO ×3 (07:57→17:31)
[2018-05-22] MEDS: NEOMYC/POLYMYX/BACIT 30 GM OINT TOP (09:58)
[2018-05-22] MEDS: BUPROPION (XL) 150 MG TAB PO (09:58)
[2018-05-22] MEDS: COLLAGENASE 5 GM (UD JAR) TOP (09:58)
[2018-05-22] MEDS: HYDROCODONE/APAP (5/325) TAB PO ×2 (09:59→15:51)
[2018-05-22] MEDS: DOCUSATE SODIUM 100 MG CAP PO ×2 (09:59→22:21)
[2018-05-22] MEDS: FUROSEMIDE 40 MG TAB PO (09:59)
[2018-05-22] MEDS: NIFEdipine (XL) 60 MG TAB PO (10:00)
[2018-05-22] MEDS: METOPROLOL (XL) 50 MG TAB PO ×2 (10:00→22:22)
[2018-05-22] MEDS: ONDANSETRON 4 MG TAB PO (15:48)
[2018-05-22] MEDS: SENNA TAB PO (22:22)
[2018-05-22] MEDS: ATORVASTATIN 10 MG TAB PO (22:22)
[2018-05-22] MEDS: INSULIN GLARGINE [LANTus] (100 UNITS/ML) SYG SC (22:27)
[2018-05-23 06:44] LABS: ADD MAN DIFF? NO
[2018-05-23 06:49] LABS: BASOPHILS % 0.3 % (0.0-2.0); EOSINOPHILS # 0.1 10^3/ul (0.0-0.5); EOSINOPHILS % 1.7 % (0.0-7.0); HEMATOCRIT 26.7 % (37.0-47.0); HEMOGLOBIN 8.5 g/dl (12.0-16.0); LYMPHOCYTES # 0.8 10^3/ul (0.8-2.9); LYMPHOCYTES % 12.8 % (15.0-51.0); MEAN CORPUSCULAR HEMOGLOBIN 29.4 pg (29.0-33.0); MEAN CORPUSCULAR HGB CONC 31.8 g/dl (32.0-37.0); MEAN CORPUSCULAR VOLUME 92.4 fl (82.0-101.0); MEAN PLATELET VOLUME 8.6 fl (7.4-10.4); MONOCYTE # 0.2 10^3/ul (0.3-0.9); NEUTROPHIL # 4.8 10^3/ul (1.6-7.5); NEUTROPHILS % 80.9 % (39.0-77.0); PLATELET COUNT 395 10^3/UL (140-415); RED BLOOD COUNT 2.89 10^6/ul (4.20-5.40); RED CELL DISTRIBUTION WIDTH 17.5 % (11.5-14.5)
[2018-05-23 06:49] LABS: WHITE BLOOD COUNT 5.9 10^3/ul (4.8-10.8)
[2018-05-23] MEDS: BISACODYL 10 MG SUPP PR (06:52)
[2018-05-23 07:09] LABS: ALANINE AMINOTRANSFERASE 17 IU/L (13-69); ALBUMIN 3.3 g/dl (3.3-4.9); ALKALINE PHOSPHATASE 120 IU/L (42-121); ANION GAP 15 (8-16); ASPARTATE AMINO TRANSFERASE 22 IU/L (15-46); BILIRUBIN,INDIRECT 0.1 mg/dl (0-1.1); BILIRUBIN,TOTAL 0.1 mg/dl (0.2-1.3); BLOOD UREA NITROGEN 72 mg/dl (7-20); CARBON DIOXIDE 29 mmol/L (21-31); CHLORIDE 92 mmol/L (97-110); CREATININE 5.16 mg/dl (0.44-1.00); GLUCOSE 58 mg/dl (70-220); POTASSIUM 3.7 mmol/L (3.5-5.1); SODIUM 132 mmol/L (135-144); TOTAL PROTEIN 6.6 g/dl (6.1-8.1)
[2018-05-23] MEDS: CALCIUM ACETATE 667 MG CAP PO ×3 (08:00→17:48)
[2018-05-23] MEDS: LINAGLIPTIN 5 MG TABLET PO (08:01)
[2018-05-23] MEDS: INSULIN ASPART [NOVOLOG] 3 ML PEN SC ×3 (08:01→17:49)
[2018-05-23] MEDS: DOCUSATE SODIUM 100 MG CAP PO ×2 (09:57→20:39)
[2018-05-23] MEDS: METOPROLOL (XL) 50 MG TAB PO ×2 (09:57→20:39)
[2018-05-23] MEDS: NEOMYC/POLYMYX/BACIT 30 GM OINT TOP (09:57)
[2018-05-23] MEDS: COLLAGENASE 5 GM (UD JAR) TOP (09:57)
[2018-05-23] MEDS: NIFEdipine (XL) 60 MG TAB PO (09:57)
[2018-05-23] MEDS: BUPROPION (XL) 150 MG TAB PO (09:58)
[2018-05-23] MEDS: FUROSEMIDE 40 MG TAB PO (09:58)
[2018-05-23] MEDS: ACETAMINOPHEN 325 MG TAB PO ×2 (09:59→16:21)
[2018-05-23] MEDS: EPOETIN 10000 UNITS/1 ML INJ (ESRD) SC (17:49)
[2018-05-23] MEDS: INSULIN GLARGINE [LANTus] (100 UNITS/ML) SYG SC (20:24)
[2018-05-23] MEDS: SENNA TAB PO (20:39)
[2018-05-23] MEDS: ATORVASTATIN 10 MG TAB PO (20:45)
[2018-05-24] MEDS: CALCIUM ACETATE 667 MG CAP PO ×2 (08:02→11:55)
[2018-05-24] MEDS: INSULIN ASPART [NOVOLOG] 3 ML PEN SC ×2 (08:04→11:55)
[2018-05-24] MEDS: LINAGLIPTIN 5 MG TABLET PO (08:06)
[2018-05-24] MEDS ORDERED: PRAZOSIN 1 MG CAP PO (09:00)
[2018-05-24] MEDS: NEOMYC/POLYMYX/BACIT 30 GM OINT TOP (09:37)
[2018-05-24] MEDS: COLLAGENASE 5 GM (UD JAR) TOP (09:37)
[2018-05-24] MEDS: BUPROPION (XL) 150 MG TAB PO (09:37)
[2018-05-24] MEDS: NIFEdipine (XL) 60 MG TAB PO (09:38)
[2018-05-24] MEDS: FUROSEMIDE 40 MG TAB PO (09:38)
[2018-05-24] MEDS: DOCUSATE SODIUM 100 MG CAP PO (09:38)
[2018-05-24] MEDS: METOPROLOL (XL) 50 MG TAB PO (09:38)
== END 2018-05-24 14:00 | disposition home or self-care (01) | DRG 949 ==
LOC: VRC 05-22 13:40
PROVIDERS: Physical Medicine & Rehabilitation
DX: S06.5X9D Traumatic subdural hemorrhage with loss of consciousness of unspecified duration, subsequent encounter (principal); N39.0 Urinary tract infection, site not specified; N18.4 Chronic kidney disease, stage 4 (severe); N17.9 Acute kidney failure, unspecified; I13.0 Hypertensive heart and chronic kidney disease with heart failure and stage 1 through stage 4 chronic kidney disease, or unspecified chronic kidney disease; E11.9 Type 2 diabetes mellitus without complications; F41.8 Other specified anxiety disorders; K21.9 Gastro-esophageal reflux disease without esophagitis; B36.9 Superficial mycosis, unspecified; F06.31 Mood disorder due to known physiological condition with depressive features; F06.8 Other specified mental disorders due to known physiological condition; I50.9 Heart failure, unspecified
CPT/HCPCS: 71045; 76775; 80053; 81001; 82962; 85025; 87081; 87086; 92507; 92523; 92610; 97110; 97112; 97116; 97150; 97163; 97167; 97530; 97535; 97542

== ENCOUNTER 2018-05-29 11:43 | Inpatient (IN) | payer MEDICARE, OTHER ==
[2018-05-29] MEDS: SOD CHLORIDE 0.9% 1,000 ML IV (12:36)
[2018-05-29] MEDS: DEXTROSE 50% 50 ML SYRINGE IV (12:50)
[2018-05-29 12:56] LABS: ADD MAN DIFF? NO
[2018-05-29 13:02] LABS: ABNORMAL IP MESSAGE 1; BASOPHILS % 0.1 % (0.0-2.0); HEMATOCRIT 28.6 % (37.0-47.0); HEMOGLOBIN 9.3 g/dl (12.0-16.0); LYMPHOCYTES # 0.3 10^3/ul (0.8-2.9); LYMPHOCYTES % 3.7 % (15.0-51.0); MEAN CORPUSCULAR HEMOGLOBIN 29.4 pg (29.0-33.0); MEAN CORPUSCULAR HGB CONC 32.5 g/dl (32.0-37.0); MEAN CORPUSCULAR VOLUME 90.5 fl (82.0-101.0); MEAN PLATELET VOLUME 8.6 fl (7.4-10.4); MONOCYTE # 0.4 10^3/ul (0.3-0.9); MONOCYTES % 4.7 % (0.0-11.0); NEUTROPHIL # 7.4 10^3/ul (1.6-7.5); NEUTROPHILS % 91.1 % (39.0-77.0); PLATELET COUNT 424 10^3/UL (140-415); RED BLOOD COUNT 3.16 10^6/ul (4.20-5.40); RED CELL DISTRIBUTION WIDTH 16.2 % (11.5-14.5)
[2018-05-29 13:02] LABS: WHITE BLOOD COUNT 8.1 10^3/ul (4.8-10.8)
[2018-05-29 13:03] LABS: POSITIVE DIFF @See below
[2018-05-29 13:18] LABS: INR 0.91; PROTIME 12.3 Sec (11.9-14.9)
[2018-05-29 13:19] LABS: PARTIAL THROMBOPLASTIN TIME 42.3 Sec (23.0-35.0)
[2018-05-29 13:20] LABS: ALANINE AMINOTRANSFERASE 23 IU/L (13-69); ALBUMIN/GLOBULIN RATIO 0.78; ALKALINE PHOSPHATASE 175 IU/L (42-121); ANION GAP 23 (8-16); ASPARTATE AMINO TRANSFERASE 23 IU/L (15-46); BILIRUBIN,INDIRECT 0.1 mg/dl (0-1.1); BILIRUBIN,TOTAL 0.1 mg/dl (0.2-1.3); BLOOD UREA NITROGEN 99 mg/dl (7-20); CALCIUM 7.6 mg/dl (8.4-10.2); CARBON DIOXIDE 25 mmol/L (21-31); CHLORIDE 89 mmol/L (97-110); POTASSIUM 4.6 mmol/L (3.5-5.1); SODIUM 132 mmol/L (135-144); TOTAL PROTEIN 6.8 g/dl (6.1-8.1)
[2018-05-29 13:32] LABS: CREATININE 7.25 mg/dl (0.44-1.00); GLUCOSE 48 mg/dl (70-220); TROPONIN-I 0.017 ng/ml (0.000-0.120)
[2018-05-29 13:36] LABS: FREE THYROXINE INDEX (Calc) 2.43 ug/ml (0.65-3.89); T3 UPTAKE 38.5 % (23.5-40.5); T4 (THYROXINE) 6.3 ug/dl (5.5-11.0)
[2018-05-29] MEDS ORDERED: ONDANSETRON 4 MG INJ IV (14:30)
[2018-05-29] MEDS ORDERED: ACETAMINOPHEN 325 MG TAB PO (14:30)
[2018-05-29] MEDS ORDERED: COLLAGENASE 30 GM TUBE TOP (15:30)
[2018-05-29] MEDS ORDERED: NA PHOSPHATE/BIPHOS 133 ML ENEMA PR (15:30)
[2018-05-29] MEDS ORDERED: NACL 0.9% 3 ML SYG IV (15:30)
[2018-05-29] MEDS ORDERED: GLUCAGON 1 MG INJ IM (16:30)
[2018-05-29] MEDS ORDERED: GLUCOSE GEL 15 GRAM TUBE PO (16:30)
[2018-05-29] MEDS: LACTATED RINGER'S 500 ML IV (17:59)
[2018-05-29] MEDS: INSULIN ASPART [NOVOLOG] 3 ML PEN SC (18:00)
[2018-05-29] MEDS: CALCIUM ACETATE 667 MG CAP PO (18:00)
[2018-05-29] MEDS: EPOETIN 10000 UNITS/1 ML INJ (ESRD) SC (18:49)
[2018-05-29] MEDS: GABAPENTIN 400 MG CAP PO (20:17)
[2018-05-29] MEDS: ATORVASTATIN 10 MG TAB PO (20:17)
[2018-05-29] MEDS: FAMOTIDINE 20 MG TAB PO (20:17)
[2018-05-29] MEDS: HEPARIN 5,000 UNIT/0.5 ML VIAL SC (20:34)
[2018-05-29] MEDS: ONDANSETRON 4 MG TAB PO (20:40)
[2018-05-29] MEDS ORDERED: FLUOXETINE 20 MG CAP PO (21:00)
[2018-05-29] MEDS: MIRTAZAPINE 15 MG TAB PO (21:39)
[2018-05-29] MEDS: METOPROLOL (XL) 50 MG TAB PO (21:39)
[2018-05-29] MEDS: ACETAMINOPHEN 325 MG TAB PO (21:39)
[2018-05-29] MEDS: MEGESTROL 40 MG TAB PO (21:52)
[2018-05-29] MEDS: LEVOFLOXACIN 500 MG TAB PO (22:00)
[2018-05-30] MEDS: LEVOFLOXACIN 500 MG TAB PO ×2 (01:10→11:30)
[2018-05-30] MEDS: HYDROCODONE/APAP (5/325) TAB PO (06:14)
[2018-05-30] MEDS: PANTOPRAZOLE (EC) 40 MG TAB PO (06:14)
[2018-05-30 07:47] LABS: ADD MAN DIFF? NO
[2018-05-30 07:53] LABS: BASOPHILS % 0.1 % (0.0-2.0); EOSINOPHILS % 0.1 % (0.0-7.0); HEMATOCRIT 26.5 % (37.0-47.0); HEMOGLOBIN 8.5 g/dl (12.0-16.0); LYMPHOCYTES # 0.9 10^3/ul (0.8-2.9); LYMPHOCYTES % 12.6 % (15.0-51.0); MEAN CORPUSCULAR HEMOGLOBIN 29.5 pg (29.0-33.0); MEAN CORPUSCULAR HGB CONC 32.1 g/dl (32.0-37.0); MEAN PLATELET VOLUME 9.1 fl (7.4-10.4); MONOCYTE # 0.5 10^3/ul (0.3-0.9); MONOCYTES % 6.7 % (0.0-11.0); NEUTROPHIL # 5.4 10^3/ul (1.6-7.5); NEUTROPHILS % 80.2 % (39.0-77.0); PLATELET COUNT 419 10^3/UL (140-415); RED BLOOD COUNT 2.88 10^6/ul (4.20-5.40); RED CELL DISTRIBUTION WIDTH 16.3 % (11.5-14.5)
[2018-05-30 07:53] LABS: WHITE BLOOD COUNT 6.7 10^3/ul (4.8-10.8)
[2018-05-30] MEDS: INSULIN ASPART [NOVOLOG] 3 ML PEN SC ×2 (08:00→18:00)
[2018-05-30 08:16] LABS: ALANINE AMINOTRANSFERASE 12 IU/L (13-69); ALBUMIN 3.2 g/dl (3.3-4.9); ALKALINE PHOSPHATASE 218 IU/L (42-121); ANION GAP 20 (8-16); ASPARTATE AMINO TRANSFERASE 23 IU/L (15-46); BLOOD UREA NITROGEN 97 mg/dl (7-20); CALCIUM 7.1 mg/dl (8.4-10.2); CARBON DIOXIDE 26 mmol/L (21-31); CHLORIDE 91 mmol/L (97-110); POTASSIUM 4.7 mmol/L (3.5-5.1); SODIUM 132 mmol/L (135-144); TOTAL PROTEIN 6.4 g/dl (6.1-8.1)
[2018-05-30 08:21] LABS: GLUCOSE 34 mg/dl (70-220)
[2018-05-30 08:29] LABS: CREATININE 7.11 mg/dl (0.44-1.00)
[2018-05-30] MEDS: DEXTROSE 50% 50 ML SYRINGE IV (08:29)
[2018-05-30] MEDS: INSULIN GLARGINE [LANTus] (100 UNITS/ML) SYG SC (09:00)
[2018-05-30] MEDS: DEXTROSE 5%-LR 1,000 ML IV (11:29)
[2018-05-30] MEDS: NIFEdipine (XL) 60 MG TAB PO (11:30)
[2018-05-30] MEDS: METOPROLOL (XL) 50 MG TAB PO ×2 (11:30→20:27)
[2018-05-30] MEDS: GABAPENTIN 400 MG CAP PO ×3 (11:30→20:26)
[2018-05-30] MEDS: CALCIUM ACETATE 667 MG CAP PO ×3 (11:30→18:19)
[2018-05-30] MEDS: LINAGLIPTIN 5 MG TABLET PO (11:31)
[2018-05-30] MEDS: MEGESTROL 40 MG TAB PO ×4 (11:31→20:27)
[2018-05-30] MEDS: HEPARIN 5,000 UNIT/0.5 ML VIAL SC ×2 (11:43→20:29)
[2018-05-30] MEDS ORDERED: VANCOMYCIN IV PER PHARMACY XX (13:30)
[2018-05-30] MEDS: LACTATED RINGER'S 500 ML IV (15:38)
[2018-05-30] MEDS: COLLAGENASE 5 GM (UD JAR) TOP (16:40)
[2018-05-30] MEDS: GLUCOSE GEL 15 GRAM TUBE BUCCAL (17:43)
[2018-05-30] MEDS: GLUCOSE GEL 15 GRAM TUBE PO (17:58)
[2018-05-30] MEDS: MIRTAZAPINE 15 MG TAB PO (18:19)
[2018-05-30] MEDS: LACTATED RINGER'S 250 ML IV (18:53)
[2018-05-30] MEDS: FAMOTIDINE 20 MG TAB PO (20:26)
[2018-05-30] MEDS: ATORVASTATIN 10 MG TAB PO (20:26)
[2018-05-30] MEDS: VANCOMYCIN 1.25 GM in SOD CHLORIDE 0.9% 250 ML IVPB (20:34)
[2018-05-31] MEDS: PANTOPRAZOLE (EC) 40 MG TAB PO (05:54)
[2018-05-31 06:41] LABS: ABNORMAL IP MESSAGE 1; ADD MAN DIFF? NO; BASOPHILS % 0.2 % (0.0-2.0); EOSINOPHILS # 0.1 10^3/ul (0.0-0.5); EOSINOPHILS % 1.8 % (0.0-7.0); HEMATOCRIT 24.6 % (37.0-47.0); HEMOGLOBIN 7.9 g/dl (12.0-16.0); LYMPHOCYTES # 0.6 10^3/ul (0.8-2.9); LYMPHOCYTES % 10.5 % (15.0-51.0); MEAN CORPUSCULAR HEMOGLOBIN 29.9 pg (29.0-33.0); MEAN CORPUSCULAR HGB CONC 32.1 g/dl (32.0-37.0); MEAN CORPUSCULAR VOLUME 93.2 fl (82.0-101.0); MEAN PLATELET VOLUME 9.2 fl (7.4-10.4); MONOCYTE # 0.2 10^3/ul (0.3-0.9); MONOCYTES % 2.7 % (0.0-11.0); NEUTROPHIL # 4.7 10^3/ul (1.6-7.5); NEUTROPHILS % 84.4 % (39.0-77.0); PLATELET COUNT 380 10^3/UL (140-415); POSITIVE DIFF @See below; RED BLOOD COUNT 2.64 10^6/ul (4.20-5.40)
[2018-05-31 06:41] LABS: WHITE BLOOD COUNT 5.5 10^3/ul (4.8-10.8)
[2018-05-31 07:07] LABS: ANION GAP 19 (8-16); BLOOD UREA NITROGEN 99 mg/dl (7-20); CALCIUM 6.9 mg/dl (8.4-10.2); CARBON DIOXIDE 23 mmol/L (21-31); CHLORIDE 92 mmol/L (97-110); GLUCOSE 291 mg/dl (70-220); POTASSIUM 4.8 mmol/L (3.5-5.1); SODIUM 129 mmol/L (135-144)
[2018-05-31 07:16] LABS: CREATININE 6.67 mg/dl (0.44-1.00)
[2018-05-31 07:52] LABS: ERYTHROCYTE SEDIMENTATION RATE 128 mm/Hr (0-30)
[2018-05-31] MEDS: HEPARIN 5,000 UNIT/0.5 ML VIAL SC ×2 (08:46→21:15)
[2018-05-31] MEDS: INSULIN ASPART [NOVOLOG] 3 ML PEN SC ×3 (08:46→17:59)
[2018-05-31] MEDS: COLLAGENASE 5 GM (UD JAR) TOP (08:47)
[2018-05-31] MEDS: INSULIN GLARGINE [LANTus] (100 UNITS/ML) SYG SC (08:47)
[2018-05-31] MEDS: GABAPENTIN 400 MG CAP PO ×3 (08:48→21:16)
[2018-05-31] MEDS: CALCIUM ACETATE 667 MG CAP PO ×3 (08:52→17:56)
[2018-05-31] MEDS: MEGESTROL 40 MG TAB PO ×4 (08:55→21:17)
[2018-05-31] MEDS: LINAGLIPTIN 5 MG TABLET PO (08:55)
[2018-05-31] MEDS: METOPROLOL (XL) 50 MG TAB PO ×2 (08:55→21:17)
[2018-05-31] MEDS: DEXTROSE 5%-LR 1,000 ML IV (11:30)
[2018-05-31] MEDS: LACTATED RINGER'S 250 ML IV (15:24)
[2018-05-31] MEDS: CEPASTAT LOZENGE MT (17:55)
[2018-05-31] MEDS: ACETAMINOPHEN 325 MG TAB PO (17:56)
[2018-05-31] MEDS: EPOETIN 10000 UNITS/1 ML INJ (ESRD) SC (18:03)
[2018-05-31] MEDS: ATORVASTATIN 10 MG TAB PO (21:16)
[2018-05-31] MEDS: FAMOTIDINE 20 MG TAB PO (21:16)
[2018-05-31] MEDS: MIRTAZAPINE 15 MG TAB PO (21:16)
[2018-06-01] MEDS: DEXTROSE 5%-LR 1,000 ML IV (03:46)
[2018-06-01 06:01] LABS: ADD MAN DIFF? NO
[2018-06-01 06:04] LABS: ABNORMAL IP MESSAGE 1; BASOPHILS % 0.2 % (0.0-2.0); EOSINOPHILS % 0.5 % (0.0-7.0); HEMATOCRIT 24.6 % (37.0-47.0); LYMPHOCYTES # 0.5 10^3/ul (0.8-2.9); LYMPHOCYTES % 8.6 % (15.0-51.0); MEAN CORPUSCULAR HEMOGLOBIN 29.6 pg (29.0-33.0); MEAN CORPUSCULAR HGB CONC 32.5 g/dl (32.0-37.0); MEAN CORPUSCULAR VOLUME 91.1 fl (82.0-101.0); MEAN PLATELET VOLUME 8.9 fl (7.4-10.4); MONOCYTE # 0.2 10^3/ul (0.3-0.9); MONOCYTES % 3.5 % (0.0-11.0); NEUTROPHIL # 5.3 10^3/ul (1.6-7.5); PLATELET COUNT 419 10^3/UL (140-415); RED CELL DISTRIBUTION WIDTH 15.9 % (11.5-14.5)
[2018-06-01 06:04] LABS: WHITE BLOOD COUNT 6.1 10^3/ul (4.8-10.8)
[2018-06-01] MEDS: LEVOFLOXACIN 250 MG TAB PO (06:14)
[2018-06-01] MEDS: PANTOPRAZOLE (EC) 40 MG TAB PO (06:14)
[2018-06-01 06:21] LABS: POSITIVE DIFF @See below
[2018-06-01 06:25] LABS: ANION GAP 20 (8-16); BLOOD UREA NITROGEN 98 mg/dl (7-20); CARBON DIOXIDE 25 mmol/L (21-31); CHLORIDE 93 mmol/L (97-110); GLUCOSE 76 mg/dl (70-220); POTASSIUM 4.7 mmol/L (3.5-5.1); SODIUM 133 mmol/L (135-144)
[2018-06-01 06:28] LABS: VANCOMYCIN,RANDOM 14.6 ug/ml
[2018-06-01 06:33] LABS: CREATININE 7.15 mg/dl (0.44-1.00)
[2018-06-01] MEDS: INSULIN ASPART [NOVOLOG] 3 ML PEN SC ×3 (08:00→18:30)
[2018-06-01] MEDS: INSULIN GLARGINE [LANTus] (100 UNITS/ML) SYG SC ×2 (08:55→09:07)
[2018-06-01] MEDS: HEPARIN 5,000 UNIT/0.5 ML VIAL SC ×2 (09:05→20:28)
[2018-06-01] MEDS: LINAGLIPTIN 5 MG TABLET PO (09:08)
[2018-06-01] MEDS: CALCIUM ACETATE 667 MG CAP PO ×3 (09:08→18:28)
[2018-06-01] MEDS: COLLAGENASE 5 GM (UD JAR) TOP (09:08)
[2018-06-01] MEDS: GABAPENTIN 400 MG CAP PO ×3 (09:08→20:26)
[2018-06-01] MEDS: MEGESTROL 40 MG TAB PO ×4 (09:08→21:04)
[2018-06-01] MEDS: METOPROLOL (XL) 50 MG TAB PO (09:09)
[2018-06-01] MEDS: CEPASTAT LOZENGE MT (09:21)
[2018-06-01] MEDS: hydrALAzine 20 MG INJ IV (12:02)
[2018-06-01] MEDS: FAMOTIDINE 20 MG TAB PO (20:26)
[2018-06-01] MEDS: ATORVASTATIN 10 MG TAB PO (20:26)
[2018-06-01] MEDS: MIRTAZAPINE 15 MG TAB PO (20:26)
[2018-06-01] MEDS: LABETALOL 200 MG TAB PO (20:27)
[2018-06-01] MEDS: VANCOMYCIN 1 GM 250 ML IVPB (22:21)
[2018-06-02 05:56] LABS: WHITE BLOOD COUNT 4.8 10^3/ul (4.8-10.8)
[2018-06-02 05:56] LABS: ABNORMAL IP MESSAGE 1; HEMATOCRIT 21.7 % (37.0-47.0); MEAN CORPUSCULAR HEMOGLOBIN 29.1 pg (29.0-33.0); MEAN CORPUSCULAR HGB CONC 31.8 g/dl (32.0-37.0); MEAN CORPUSCULAR VOLUME 91.6 fl (82.0-101.0); MEAN PLATELET VOLUME 8.8 fl (7.4-10.4); PLATELET COUNT 393 10^3/UL (140-415); RED BLOOD COUNT 2.37 10^6/ul (4.20-5.40)
[2018-06-02 06:00] LABS: POSITIVE DIFF @See below
[2018-06-02 06:01] LABS: ADD MAN DIFF? YES
[2018-06-02 06:02] LABS: HEMOGLOBIN 6.9 g/dl (12.0-16.0)
[2018-06-02 06:18] LABS: ANION GAP 17 (8-16); BLOOD UREA NITROGEN 98 mg/dl (7-20); CALCIUM 7.9 mg/dl (8.4-10.2); CARBON DIOXIDE 26 mmol/L (21-31); CHLORIDE 95 mmol/L (97-110); GLUCOSE 91 mg/dl (70-220); POTASSIUM 4.6 mmol/L (3.5-5.1); SODIUM 133 mmol/L (135-144)
[2018-06-02 06:20] LABS: MAGNESIUM 2.8 mg/dl (1.7-2.5)
[2018-06-02 06:20] LABS: PHOSPHORUS 6.1 mg/dl (2.5-4.9)
[2018-06-02] MEDS: PANTOPRAZOLE (EC) 40 MG TAB PO ×2 (06:25→07:00)
[2018-06-02] MEDS: DEXTROSE 5%-LR 1,000 ML IV ×2 (06:25→12:42)
[2018-06-02 06:27] LABS: CREATININE 6.69 mg/dl (0.44-1.00)
[2018-06-02] MEDS: CALCIUM ACETATE 667 MG CAP PO ×3 (08:00→17:08)
[2018-06-02] MEDS: INSULIN ASPART [NOVOLOG] 3 ML PEN SC ×4 (08:00→17:55)
[2018-06-02 08:21] LABS: ANISOCYTOSIS 1+ (0-0); BASOPHILS % (M) 1 % (0-2); EOSINOPHILS % (M) 4 % (0-7); LYMPHOCYTES #M 0.3 10^3/ul (0.8-2.9); LYMPHOCYTES % (M) 8 % (15-51); MONOCYTE #M 0.1 10^3/ul (0.3-0.9); MONOCYTES % (M) 3 % (0-11); PLATELET ESTIMATE NORMAL; POLYCHROMASIA 1+ (0-0); SEGMENTED NEUTROPHILS (M) % 84 % (39-77); SMUDGE%M 24 % (0-0)
[2018-06-02] MEDS: HEPARIN 5,000 UNIT/0.5 ML VIAL SC ×2 (09:00→21:00)
[2018-06-02] MEDS: GABAPENTIN 400 MG CAP PO ×3 (09:00→20:57)
[2018-06-02] MEDS: MEGESTROL 40 MG TAB PO ×4 (09:00→20:56)
[2018-06-02] MEDS: LINAGLIPTIN 5 MG TABLET PO (09:00)
[2018-06-02] MEDS: LABETALOL 200 MG TAB PO ×2 (09:00→20:57)
[2018-06-02] MEDS: COLLAGENASE 5 GM (UD JAR) TOP (10:07)
[2018-06-02] MEDS: FUROSEMIDE 40 MG INJ IV (10:08)
[2018-06-02] MEDS: INSULIN GLARGINE [LANTus] (100 UNITS/ML) SYG SC (10:09)
[2018-06-02] MEDS: hydrALAzine 20 MG INJ IV ×3 (10:11→21:18)
[2018-06-02 14:38] LABS: IMMEDIATE SPIN CROSSMATCH 1 1
[2018-06-02] MEDS: MIRTAZAPINE 15 MG TAB PO (18:06)
[2018-06-02] MEDS: ATORVASTATIN 10 MG TAB PO (20:56)
[2018-06-02] MEDS: FAMOTIDINE 20 MG TAB PO (20:57)
[2018-06-03] MEDS: LACTATED RINGER S IV ×2 (00:19→22:13)
[2018-06-03] MEDS: DEXTROSE 50% IV ×2 (00:19→22:13)
[2018-06-03] MEDS: ACCU-CHEK XX ×6 (01:58→20:10)
[2018-06-03] MEDS: hydrALAzine 20 MG INJ IV ×3 (05:31→18:53)
[2018-06-03] MEDS: LEVOFLOXACIN 250 MG TAB PO (06:00)
[2018-06-03 06:04] LABS: ADD MAN DIFF? NO
[2018-06-03 06:16] LABS: ABNORMAL IP MESSAGE 1; BASOPHILS % 0.2 % (0.0-2.0); EOSINOPHILS # 0.1 10^3/ul (0.0-0.5); EOSINOPHILS % 1.9 % (0.0-7.0); HEMATOCRIT 24.5 % (37.0-47.0); HEMOGLOBIN 7.9 g/dl (12.0-16.0); LYMPHOCYTES # 0.5 10^3/ul (0.8-2.9); LYMPHOCYTES % 11.3 % (15.0-51.0); MEAN CORPUSCULAR HEMOGLOBIN 29.3 pg (29.0-33.0); MEAN CORPUSCULAR HGB CONC 32.2 g/dl (32.0-37.0); MEAN CORPUSCULAR VOLUME 90.7 fl (82.0-101.0); MEAN PLATELET VOLUME 8.7 fl (7.4-10.4); MONOCYTE # 0.2 10^3/ul (0.3-0.9); MONOCYTES % 4.8 % (0.0-11.0); NEUTROPHIL # 3.4 10^3/ul (1.6-7.5); NEUTROPHILS % 81.6 % (39.0-77.0); PLATELET COUNT 377 10^3/UL (140-415); RED CELL DISTRIBUTION WIDTH 15.5 % (11.5-14.5)
[2018-06-03 06:16] LABS: WHITE BLOOD COUNT 4.2 10^3/ul (4.8-10.8)
[2018-06-03 06:21] LABS: POSITIVE DIFF @See below
[2018-06-03 06:45] LABS: ANION GAP 18 (8-16); BLOOD UREA NITROGEN 97 mg/dl (7-20); CALCIUM 8.2 mg/dl (8.4-10.2); CARBON DIOXIDE 25 mmol/L (21-31); CHLORIDE 97 mmol/L (97-110); CREATININE 7.23 mg/dl (0.44-1.00); GLUCOSE 113 mg/dl (70-220); POTASSIUM 4.3 mmol/L (3.5-5.1); SODIUM 136 mmol/L (135-144)
[2018-06-03] MEDS: CALCIUM ACETATE 667 MG CAP PO ×3 (07:55→17:55)
[2018-06-03] MEDS: INSULIN ASPART [NOVOLOG] 3 ML PEN SC ×3 (07:55→17:55)
[2018-06-03] MEDS: PANTOPRAZOLE (EC) 40 MG TAB PO (08:29)
[2018-06-03] MEDS: LINAGLIPTIN 5 MG TABLET PO (09:00)
[2018-06-03] MEDS: LABETALOL 200 MG TAB PO ×2 (09:00→20:16)
[2018-06-03] MEDS: GABAPENTIN 400 MG CAP PO ×3 (09:00→20:16)
[2018-06-03] MEDS: MEGESTROL 40 MG TAB PO ×4 (09:00→20:16)
[2018-06-03 09:19] LABS: HAAIG REFLEX REFLEX FILED
[2018-06-03 09:23] LABS: HEPATITIS B SURFACE ANTIGEN NEGATIVE (NEGATIVE)
[2018-06-03] MEDS: COLLAGENASE 5 GM (UD JAR) TOP (10:38)
[2018-06-03] MEDS: HEPARIN 5,000 UNIT/0.5 ML VIAL SC ×2 (10:41→20:17)
[2018-06-03] MEDS: INSULIN GLARGINE [LANTus] (100 UNITS/ML) SYG SC (11:16)
[2018-06-03] MEDS: ACETAMINOPHEN 325 MG TAB PO ×2 (11:19→18:53)
[2018-06-03 11:52] LABS: HEPATITIS B SURFACE ANTIGEN NEGATIVE (NEGATIVE)
[2018-06-03 12:10] LABS: HEPATITIS B CORE ANTIBODY NEGATIVE (NEGATIVE); HEPATITIS C VIRAL ANTIBODY NEGATIVE (NEGATIVE)
[2018-06-03] MEDS: HEPARIN 1000 UNITS/ML 10 ML INJ CATHETER (17:28)
[2018-06-03] MEDS: EPOETIN 10000 UNITS/1 ML INJ (ESRD) SC (18:33)
[2018-06-03] MEDS: FAMOTIDINE 20 MG TAB PO (20:11)
[2018-06-03] MEDS: ATORVASTATIN 10 MG TAB PO (20:12)
[2018-06-03] MEDS: NORTRIPTYLINE 10 MG CAP PO (20:12)
[2018-06-04] MEDS: ACCU-CHEK XX ×6 (02:00→22:13)
[2018-06-04] MEDS: INSULIN ASPART [NOVOLOG] 3 ML PEN SC ×4 (05:30→17:24)
[2018-06-04] MEDS: INSULIN GLARGINE [LANTus] (100 UNITS/ML) SYG SC ×2 (08:04→17:24)
[2018-06-04] MEDS: CALCIUM ACETATE 667 MG CAP PO ×3 (08:05→17:25)
[2018-06-04] MEDS: PANTOPRAZOLE (EC) 40 MG TAB PO (08:05)
[2018-06-04] MEDS: MEGESTROL 40 MG TAB PO ×4 (08:06→22:17)
[2018-06-04] MEDS: LINAGLIPTIN 5 MG TABLET PO (08:06)
[2018-06-04] MEDS: LABETALOL 200 MG TAB PO ×3 (08:07→22:14)
[2018-06-04] MEDS: GABAPENTIN 400 MG CAP PO ×3 (08:07→22:13)
[2018-06-04] MEDS: COLLAGENASE 5 GM (UD JAR) TOP (08:07)
[2018-06-04] MEDS: HEPARIN 5,000 UNIT/0.5 ML VIAL SC ×2 (08:41→22:25)
[2018-06-04 08:56] LABS: ADD MAN DIFF? NO
[2018-06-04 09:01] LABS: WHITE BLOOD COUNT 2.8 10^3/ul (4.8-10.8)
[2018-06-04 09:01] LABS: ABNORMAL IP MESSAGE 1; EOSINOPHILS # 0.1 10^3/ul (0.0-0.5); EOSINOPHILS % 2.1 % (0.0-7.0); HEMATOCRIT 23.3 % (37.0-47.0); HEMOGLOBIN 7.3 g/dl (12.0-16.0); LYMPHOCYTES # 0.4 10^3/ul (0.8-2.9); MEAN CORPUSCULAR HEMOGLOBIN 29.2 pg (29.0-33.0); MEAN CORPUSCULAR HGB CONC 31.3 g/dl (32.0-37.0); MEAN CORPUSCULAR VOLUME 93.2 fl (82.0-101.0); MEAN PLATELET VOLUME 8.6 fl (7.4-10.4); MONOCYTE # 0.1 10^3/ul (0.3-0.9); MONOCYTES % 2.5 % (0.0-11.0); NEUTROPHIL # 2.2 10^3/ul (1.6-7.5); PLATELET COUNT 314 10^3/UL (140-415); RED CELL DISTRIBUTION WIDTH 15.3 % (11.5-14.5)
[2018-06-04 09:04] LABS: POSITIVE DIFF @See below
[2018-06-04 09:19] LABS: ALANINE AMINOTRANSFERASE 15 IU/L (13-69); ALBUMIN 2.4 g/dl (3.3-4.9); ALBUMIN/GLOBULIN RATIO 0.72; ALKALINE PHOSPHATASE 182 IU/L (42-121); ANION GAP 13 (8-16); ASPARTATE AMINO TRANSFERASE 18 IU/L (15-46); BILIRUBIN,INDIRECT 0.1 mg/dl (0-1.1); BILIRUBIN,TOTAL 0.1 mg/dl (0.2-1.3); BLOOD UREA NITROGEN 43 mg/dl (7-20); CALCIUM 8.1 mg/dl (8.4-10.2); CARBON DIOXIDE 29 mmol/L (21-31); CHLORIDE 98 mmol/L (97-110); CREATININE 4.03 mg/dl (0.44-1.00); GLUCOSE 253 mg/dl (70-220); POTASSIUM 3.5 mmol/L (3.5-5.1); SODIUM 136 mmol/L (135-144); TOTAL PROTEIN 5.7 g/dl (6.1-8.1)
[2018-06-04 09:38] LABS: IRON 13 ug/dl (35-150)
[2018-06-04 09:43] LABS: VANCOMYCIN,RANDOM 15.4 ug/ml
[2018-06-04 09:48] LABS: % IRON SATURATION 7 % SAT (22-52); TOTAL IRON BINDING CAPACITY 178 ug/dl (241-421)
[2018-06-04] MEDS: HEPARIN 1000 UNITS/ML 10 ML INJ CATHETER (12:22)
[2018-06-04] MEDS: ACETAMINOPHEN 325 MG TAB PO (13:29)
[2018-06-04] MEDS: SOD FERRIC GLUC COMPLX 125 MG in SOD CHLORIDE 0.9% 100 ML IVPB (17:29)
[2018-06-04] MEDS: LACTATED RINGER S IV (22:00)
[2018-06-04] MEDS: DEXTROSE 50% IV (22:00)
[2018-06-04] MEDS: NORTRIPTYLINE 10 MG CAP PO (22:12)
[2018-06-04] MEDS: ATORVASTATIN 10 MG TAB PO (22:13)
[2018-06-04] MEDS: FAMOTIDINE 20 MG TAB PO (22:13)
[2018-06-04] MEDS: ALBUTEROL 0.083% (NEB) 2.5 MG/3 ML AMP HHN (23:38)
[2018-06-05] MEDS: ACCU-CHEK XX ×6 (01:00→22:00)
[2018-06-05] MEDS: DEXTROSE 50% IV (06:56)
[2018-06-05] MEDS: PANTOPRAZOLE (EC) 40 MG TAB PO (06:56)
[2018-06-05] MEDS: LACTATED RINGER S IV (06:56)
[2018-06-05] MEDS: LEVOFLOXACIN 250 MG TAB PO (06:56)
[2018-06-05 07:15] LABS: PATH REVIEW DK; PATH REVIEW? YES
[2018-06-05] MEDS: CALCIUM ACETATE 667 MG CAP PO ×3 (07:42→17:33)
[2018-06-05] MEDS: LINAGLIPTIN 5 MG TABLET PO (08:15)
[2018-06-05] MEDS: GABAPENTIN 400 MG CAP PO ×3 (08:15→21:54)
[2018-06-05] MEDS: MEGESTROL 40 MG TAB PO ×4 (08:16→21:54)
[2018-06-05] MEDS: LABETALOL 200 MG TAB PO ×2 (08:17→21:53)
[2018-06-05] MEDS: COLLAGENASE 5 GM (UD JAR) TOP (08:17)
[2018-06-05] MEDS: HEPARIN 5,000 UNIT/0.5 ML VIAL SC ×2 (08:25→22:10)
[2018-06-05] MEDS: INSULIN GLARGINE [LANTus] (100 UNITS/ML) SYG SC (08:26)
[2018-06-05] MEDS: INSULIN ASPART [NOVOLOG] 3 ML PEN SC ×3 (08:26→17:33)
[2018-06-05] MEDS: SOD FERRIC GLUC COMPLX 125 MG in SOD CHLORIDE 0.9% 100 ML IVPB (17:40)
[2018-06-05] MEDS: EPOETIN 10000 UNITS/1 ML INJ (ESRD) SC (17:41)
[2018-06-05] MEDS: OXYCODONE/ACETAMINOPHEN (5/325) TAB PO (21:52)
[2018-06-05] MEDS: ATORVASTATIN 10 MG TAB PO (21:54)
[2018-06-05] MEDS: FAMOTIDINE 20 MG TAB PO (21:54)
[2018-06-05] MEDS: NORTRIPTYLINE 10 MG CAP PO (21:55)
[2018-06-06] MEDS: ACCU-CHEK XX ×6 (01:33→22:01)
[2018-06-06] MEDS: PANTOPRAZOLE (EC) 40 MG TAB PO (07:25)
[2018-06-06 07:31] LABS: ADD MAN DIFF? NO
[2018-06-06 07:34] LABS: ABNORMAL IP MESSAGE 1; BASOPHILS % 0.3 % (0.0-2.0); EOSINOPHILS # 0.1 10^3/ul (0.0-0.5); EOSINOPHILS % 2.4 % (0.0-7.0); HEMATOCRIT 26.1 % (37.0-47.0); HEMOGLOBIN 7.9 g/dl (12.0-16.0); LYMPHOCYTES # 0.5 10^3/ul (0.8-2.9); LYMPHOCYTES % 14.9 % (15.0-51.0); MEAN CORPUSCULAR HEMOGLOBIN 28.7 pg (29.0-33.0); MEAN CORPUSCULAR HGB CONC 30.3 g/dl (32.0-37.0); MEAN CORPUSCULAR VOLUME 94.9 fl (82.0-101.0); MEAN PLATELET VOLUME 8.9 fl (7.4-10.4); MONOCYTE # 0.1 10^3/ul (0.3-0.9); NEUTROPHIL # 2.6 10^3/ul (1.6-7.5); NEUTROPHILS % 78.5 % (39.0-77.0); PLATELET COUNT 305 10^3/UL (140-415); RED BLOOD COUNT 2.75 10^6/ul (4.20-5.40); RED CELL DISTRIBUTION WIDTH 15.4 % (11.5-14.5)
[2018-06-06 07:34] LABS: WHITE BLOOD COUNT 3.4 10^3/ul (4.8-10.8)
[2018-06-06 07:36] LABS: POSITIVE DIFF @See below
[2018-06-06] MEDS: CALCIUM ACETATE 667 MG CAP PO ×3 (07:55→17:13)
[2018-06-06 08:04] LABS: ALANINE AMINOTRANSFERASE 10 IU/L (13-69); ALBUMIN 2.4 g/dl (3.3-4.9); ALKALINE PHOSPHATASE 158 IU/L (42-121); ANION GAP 10 (8-16); ASPARTATE AMINO TRANSFERASE 20 IU/L (15-46); BILIRUBIN,INDIRECT 0.2 mg/dl (0-1.1); BILIRUBIN,TOTAL 0.2 mg/dl (0.2-1.3); BLOOD UREA NITROGEN 32 mg/dl (7-20); CALCIUM 8.3 mg/dl (8.4-10.2); CARBON DIOXIDE 30 mmol/L (21-31); CHLORIDE 99 mmol/L (97-110); CREATININE 3.47 mg/dl (0.44-1.00); GLUCOSE 167 mg/dl (70-220); SODIUM 135 mmol/L (135-144); TOTAL PROTEIN 5.8 g/dl (6.1-8.1)
[2018-06-06] MEDS: INSULIN GLARGINE [LANTus] (100 UNITS/ML) SYG SC (08:15)
[2018-06-06] MEDS: INSULIN ASPART [NOVOLOG] 3 ML PEN SC ×3 (08:15→17:22)
[2018-06-06] MEDS: COLLAGENASE 5 GM (UD JAR) TOP (09:00)
[2018-06-06] MEDS: MEGESTROL 40 MG TAB PO ×4 (09:00→21:46)
[2018-06-06] MEDS: ACETAMINOPHEN 325 MG TAB PO ×2 (09:47→23:54)
[2018-06-06] MEDS: HEPARIN 1000 UNITS/ML 10 ML INJ CATHETER (12:04)
[2018-06-06] MEDS: INFLUENZA VIRUS VACCINE 0.5 ML (DISPENSING) IM* (12:05)
[2018-06-06] MEDS: LINAGLIPTIN 5 MG TABLET PO (12:56)
[2018-06-06] MEDS: LABETALOL 200 MG TAB PO ×2 (12:56→21:47)
[2018-06-06] MEDS: HEPARIN 5,000 UNIT/0.5 ML VIAL SC ×2 (13:06→21:51)
[2018-06-06] MEDS: [UNRECOGNIZED DRUG - OTHER] BOTH EARS ×3 (14:00→21:58)
[2018-06-06] MEDS: HYDROCORTISONE BOTH EARS ×3 (14:00→21:58)
[2018-06-06] MEDS: NEOMYCIN BOTH EARS ×3 (14:00→21:58)
[2018-06-06] MEDS: COLISTIN BOTH EARS ×3 (14:00→21:58)
[2018-06-06] MEDS: DEXTROSE 50% IV (16:22)
[2018-06-06] MEDS: LACTATED RINGER S IV (16:22)
[2018-06-06] MEDS: hydrALAzine 20 MG INJ IV (16:23)
[2018-06-06] MEDS: SOD FERRIC GLUC COMPLX 125 MG in SOD CHLORIDE 0.9% 100 ML IVPB (16:31)
[2018-06-06] MEDS: ATORVASTATIN 10 MG TAB PO (21:46)
[2018-06-06] MEDS: FAMOTIDINE 20 MG TAB PO (21:46)
[2018-06-06] MEDS: NORTRIPTYLINE 10 MG CAP PO (21:46)
[2018-06-06] MEDS: GABAPENTIN 400 MG CAP PO (21:46)
[2018-06-07] MEDS: ACCU-CHEK XX ×6 (01:00→21:00)
[2018-06-07] MEDS: GUAIFENESIN/DM 5ML CUP PO (05:44)
[2018-06-07] MEDS: LEVOFLOXACIN 250 MG TAB PO (06:21)
[2018-06-07 07:34] LABS: ADD MAN DIFF? NO
[2018-06-07] MEDS: PANTOPRAZOLE (EC) 40 MG TAB PO (07:34)
[2018-06-07 07:41] LABS: BASOPHILS % 0.3 % (0.0-2.0); EOSINOPHILS # 0.1 10^3/ul (0.0-0.5); EOSINOPHILS % 3.2 % (0.0-7.0); HEMATOCRIT 25.5 % (37.0-47.0); HEMOGLOBIN 7.7 g/dl (12.0-16.0); LYMPHOCYTES # 0.6 10^3/ul (0.8-2.9); LYMPHOCYTES % 16.1 % (15.0-51.0); MEAN CORPUSCULAR HEMOGLOBIN 28.9 pg (29.0-33.0); MEAN CORPUSCULAR HGB CONC 30.2 g/dl (32.0-37.0); MEAN CORPUSCULAR VOLUME 95.9 fl (82.0-101.0); MEAN PLATELET VOLUME 9.1 fl (7.4-10.4); MONOCYTE # 0.1 10^3/ul (0.3-0.9); MONOCYTES % 3.2 % (0.0-11.0); NEUTROPHIL # 2.9 10^3/ul (1.6-7.5); NEUTROPHILS % 76.1 % (39.0-77.0); PLATELET COUNT 269 10^3/UL (140-415); RED BLOOD COUNT 2.66 10^6/ul (4.20-5.40); RED CELL DISTRIBUTION WIDTH 15.5 % (11.5-14.5)
[2018-06-07 07:41] LABS: WHITE BLOOD COUNT 3.8 10^3/ul (4.8-10.8)
[2018-06-07] MEDS: CALCIUM ACETATE 667 MG CAP PO ×3 (07:55→17:21)
[2018-06-07] MEDS: INSULIN ASPART [NOVOLOG] 3 ML PEN SC ×3 (07:55→17:22)
[2018-06-07 08:29] LABS: ANION GAP 12 (8-16); BLOOD UREA NITROGEN 19 mg/dl (7-20); CARBON DIOXIDE 29 mmol/L (21-31); CHLORIDE 97 mmol/L (97-110); CREATININE 2.37 mg/dl (0.44-1.00); GLUCOSE 206 mg/dl (70-220); PHOSPHORUS 1.9 mg/dl (2.5-4.9); POTASSIUM 3.7 mmol/L (3.5-5.1); SODIUM 134 mmol/L (135-144)
[2018-06-07] MEDS: MEGESTROL 40 MG TAB PO ×5 (09:10→22:10)
[2018-06-07] MEDS: LINAGLIPTIN 5 MG TABLET PO (09:11)
[2018-06-07] MEDS: LABETALOL 200 MG TAB PO ×3 (09:11→22:09)
[2018-06-07] MEDS: COLLAGENASE 5 GM (UD JAR) TOP (09:11)
[2018-06-07] MEDS: HEPARIN 5,000 UNIT/0.5 ML VIAL SC ×2 (09:13→22:29)
[2018-06-07] MEDS: INSULIN GLARGINE [LANTus] (100 UNITS/ML) SYG SC (09:13)
[2018-06-07] MEDS: NEOMYC/POLYMYX/HC 10 ML OTIC SUSP LEFT EAR ×3 (14:15→22:53)
[2018-06-07] MEDS: EPOETIN 10000 UNITS/1 ML INJ (ESRD) SC (17:28)
[2018-06-07] MEDS: NORTRIPTYLINE 10 MG CAP PO ×2 (21:00→22:07)
[2018-06-07] MEDS: GABAPENTIN 400 MG CAP PO ×2 (21:00→22:11)
[2018-06-07] MEDS: ATORVASTATIN 10 MG TAB PO ×2 (21:00→22:10)
[2018-06-07] MEDS: FAMOTIDINE 20 MG TAB PO ×2 (21:00→22:10)
[2018-06-07] MEDS: CEPASTAT LOZENGE MT (22:17)
[2018-06-07] MEDS: hydrALAzine 20 MG INJ IV (22:18)
[2018-06-08] MEDS: ACCU-CHEK XX ×6 (01:00→22:18)
[2018-06-08] MEDS: NEOMYC/POLYMYX/HC 10 ML OTIC SUSP LEFT EAR ×3 (06:06→22:24)
[2018-06-08] MEDS: LABETALOL 200 MG TAB PO ×2 (08:16→22:03)
[2018-06-08] MEDS: MEGESTROL 40 MG TAB PO ×4 (08:17→22:02)
[2018-06-08] MEDS: PANTOPRAZOLE (EC) 40 MG TAB PO (08:17)
[2018-06-08] MEDS: LINAGLIPTIN 5 MG TABLET PO (08:17)
[2018-06-08] MEDS: CALCIUM ACETATE 667 MG CAP PO ×3 (08:17→17:36)
[2018-06-08] MEDS: COLLAGENASE 5 GM (UD JAR) TOP (08:18)
[2018-06-08] MEDS: INSULIN ASPART [NOVOLOG] 3 ML PEN SC ×3 (08:24→17:44)
[2018-06-08] MEDS: INSULIN GLARGINE [LANTus] (100 UNITS/ML) SYG SC (08:24)
[2018-06-08] MEDS: HEPARIN 5,000 UNIT/0.5 ML VIAL SC ×2 (08:24→22:18)
[2018-06-08] MEDS: ACETAMINOPHEN 325 MG TAB PO (08:29)
[2018-06-08] MEDS: HEPARIN 1000 UNITS/ML 10 ML INJ CATHETER (13:03)
[2018-06-08] MEDS: FAMOTIDINE 20 MG TAB PO (21:56)
[2018-06-08] MEDS: ATORVASTATIN 10 MG TAB PO (21:56)
[2018-06-08] MEDS: GABAPENTIN 400 MG CAP PO (21:57)
[2018-06-08] MEDS: NORTRIPTYLINE 10 MG CAP PO (22:04)
[2018-06-09] MEDS: GUAIFENESIN/DM 5ML CUP PO ×2 (00:07→04:24)
[2018-06-09] MEDS: ACCU-CHEK XX ×6 (01:06→21:16)
[2018-06-09] MEDS: ACETAMINOPHEN 325 MG TAB PO ×2 (04:29→13:36)
[2018-06-09 06:28] LABS: ADD MAN DIFF? NO
[2018-06-09 06:38] LABS: BASOPHILS % 0.2 % (0.0-2.0); EOSINOPHILS % 0.8 % (0.0-7.0); HEMATOCRIT 22.6 % (37.0-47.0); LYMPHOCYTES # 0.8 10^3/ul (0.8-2.9); LYMPHOCYTES % 15.5 % (15.0-51.0); MEAN CORPUSCULAR HEMOGLOBIN 29.2 pg (29.0-33.0); MEAN CORPUSCULAR VOLUME 94.2 fl (82.0-101.0); MEAN PLATELET VOLUME 9.5 fl (7.4-10.4); MONOCYTE # 0.2 10^3/ul (0.3-0.9); MONOCYTES % 3.3 % (0.0-11.0); NEUTROPHIL # 3.9 10^3/ul (1.6-7.5); NEUTROPHILS % 79.4 % (39.0-77.0); PLATELET COUNT 283 10^3/UL (140-415); RED CELL DISTRIBUTION WIDTH 15.9 % (11.5-14.5)
[2018-06-09 06:38] LABS: WHITE BLOOD COUNT 4.9 10^3/ul (4.8-10.8)
[2018-06-09] MEDS: NEOMYC/POLYMYX/HC 10 ML OTIC SUSP LEFT EAR ×3 (06:57→23:05)
[2018-06-09] MEDS: PANTOPRAZOLE (EC) 40 MG TAB PO (06:57)
[2018-06-09 07:05] LABS: ALANINE AMINOTRANSFERASE 22 IU/L (13-69); ALBUMIN 2.2 g/dl (3.3-4.9); ALBUMIN/GLOBULIN RATIO 0.68; ALKALINE PHOSPHATASE 213 IU/L (42-121); ANION GAP 11 (8-16); ASPARTATE AMINO TRANSFERASE 29 IU/L (15-46); BILIRUBIN,INDIRECT 0.2 mg/dl (0-1.1); BILIRUBIN,TOTAL 0.2 mg/dl (0.2-1.3); BLOOD UREA NITROGEN 16 mg/dl (7-20); CALCIUM 7.8 mg/dl (8.4-10.2); CARBON DIOXIDE 29 mmol/L (21-31); CHLORIDE 98 mmol/L (97-110); CREATININE 2.37 mg/dl (0.44-1.00); GLUCOSE 230 mg/dl (70-220); SODIUM 134 mmol/L (135-144); TOTAL PROTEIN 5.4 g/dl (6.1-8.1)
[2018-06-09] MEDS: COLLAGENASE 5 GM (UD JAR) TOP ×2 (09:00→14:35)
[2018-06-09] MEDS: MEGESTROL 40 MG TAB PO ×4 (09:01→21:10)
[2018-06-09] MEDS: CALCIUM ACETATE 667 MG CAP PO ×3 (09:01→17:34)
[2018-06-09] MEDS: LINAGLIPTIN 5 MG TABLET PO (09:02)
[2018-06-09] MEDS: LABETALOL 200 MG TAB PO ×2 (09:02→21:11)
[2018-06-09] MEDS: INSULIN ASPART [NOVOLOG] 3 ML PEN SC ×3 (09:09→17:34)
[2018-06-09] MEDS: HEPARIN 5,000 UNIT/0.5 ML VIAL SC ×2 (09:09→21:00)
[2018-06-09] MEDS: INSULIN GLARGINE [LANTus] (100 UNITS/ML) SYG SC (09:10)
[2018-06-09] MEDS: SOD CHLORIDE 0.9% 250 ML IV* (17:51)
[2018-06-09] MEDS: FAMOTIDINE 20 MG TAB PO (21:10)
[2018-06-09] MEDS: NORTRIPTYLINE 10 MG CAP PO (21:10)
[2018-06-09] MEDS: ATORVASTATIN 10 MG TAB PO (21:10)
[2018-06-09] MEDS: GABAPENTIN 400 MG CAP PO (21:10)
[2018-06-09 22:43] LABS: IMMEDIATE SPIN CROSSMATCH 1 1
[2018-06-10] MEDS: ACETAMINOPHEN 325 MG TAB PO ×2 (01:34→19:15)
[2018-06-10] MEDS: ACCU-CHEK XX ×6 (01:48→21:12)
[2018-06-10] MEDS: NEOMYC/POLYMYX/HC 10 ML OTIC SUSP LEFT EAR ×3 (06:00→22:02)
[2018-06-10 06:41] LABS: WHITE BLOOD COUNT 5.2 10^3/ul (4.8-10.8)
[2018-06-10 06:41] LABS: ADD MAN DIFF? NO; BASOPHILS % 0.2 % (0.0-2.0); EOSINOPHILS # 0.1 10^3/ul (0.0-0.5); EOSINOPHILS % 1.7 % (0.0-7.0); HEMATOCRIT 27.2 % (37.0-47.0); HEMOGLOBIN 8.7 g/dl (12.0-16.0); LYMPHOCYTES # 0.7 10^3/ul (0.8-2.9); LYMPHOCYTES % 12.5 % (15.0-51.0); MEAN CORPUSCULAR HEMOGLOBIN 29.2 pg (29.0-33.0); MEAN CORPUSCULAR VOLUME 91.3 fl (82.0-101.0); MONOCYTE # 0.2 10^3/ul (0.3-0.9); MONOCYTES % 3.8 % (0.0-11.0); NEUTROPHIL # 4.2 10^3/ul (1.6-7.5); PLATELET COUNT 270 10^3/UL (140-415); RED BLOOD COUNT 2.98 10^6/ul (4.20-5.40); RED CELL DISTRIBUTION WIDTH 15.9 % (11.5-14.5)
[2018-06-10 07:14] LABS: ALANINE AMINOTRANSFERASE 21 IU/L (13-69); ALBUMIN 2.2 g/dl (3.3-4.9); ALBUMIN/GLOBULIN RATIO 0.64; ALKALINE PHOSPHATASE 180 IU/L (42-121); ANION GAP 10 (8-16); ASPARTATE AMINO TRANSFERASE 26 IU/L (15-46); BILIRUBIN,INDIRECT 0.2 mg/dl (0-1.1); BILIRUBIN,TOTAL 0.2 mg/dl (0.2-1.3); BLOOD UREA NITROGEN 29 mg/dl (7-20); CARBON DIOXIDE 30 mmol/L (21-31); CHLORIDE 96 mmol/L (97-110); CREATININE 3.53 mg/dl (0.44-1.00); GLUCOSE 148 mg/dl (70-220); POTASSIUM 4.3 mmol/L (3.5-5.1); SODIUM 132 mmol/L (135-144); TOTAL PROTEIN 5.6 g/dl (6.1-8.1)
[2018-06-10] MEDS: PANTOPRAZOLE (EC) 40 MG TAB PO (07:25)
[2018-06-10] MEDS: INSULIN ASPART [NOVOLOG] 3 ML PEN SC ×3 (07:55→17:55)
[2018-06-10] MEDS: LINAGLIPTIN 5 MG TABLET PO (09:17)
[2018-06-10] MEDS: MEGESTROL 40 MG TAB PO ×4 (09:18→22:11)
[2018-06-10] MEDS: CALCIUM ACETATE 667 MG CAP PO ×3 (09:19→17:49)
[2018-06-10] MEDS: LABETALOL 200 MG TAB PO ×2 (09:20→22:01)
[2018-06-10] MEDS: INSULIN GLARGINE [LANTus] (100 UNITS/ML) SYG SC (09:31)
[2018-06-10] MEDS: COLLAGENASE 5 GM (UD JAR) TOP (14:52)
[2018-06-10] MEDS: EPOETIN 10000 UNITS/1 ML INJ (ESRD) SC (16:57)
[2018-06-10] MEDS: FAMOTIDINE 20 MG TAB PO (22:00)
[2018-06-10] MEDS: ATORVASTATIN 10 MG TAB PO (22:00)
[2018-06-10] MEDS: NORTRIPTYLINE 10 MG CAP PO (22:00)
[2018-06-10] MEDS: GABAPENTIN 400 MG CAP PO (22:00)
[2018-06-10] MEDS: OXYCODONE/ACETAMINOPHEN (5/325) TAB PO (22:11)
[2018-06-11] MEDS: ACCU-CHEK XX ×6 (01:00→20:49)
[2018-06-11] MEDS: PANTOPRAZOLE (EC) 40 MG TAB PO (05:46)
[2018-06-11] MEDS: NEOMYC/POLYMYX/HC 10 ML OTIC SUSP LEFT EAR ×3 (05:47→22:38)
[2018-06-11] MEDS: ACETAMINOPHEN 325 MG TAB PO (05:54)
[2018-06-11] MEDS: CALCIUM ACETATE 667 MG CAP PO ×3 (07:55→17:19)
[2018-06-11] MEDS: INSULIN ASPART [NOVOLOG] 3 ML PEN SC ×3 (07:55→17:33)
[2018-06-11] MEDS: COLLAGENASE 5 GM (UD JAR) TOP (09:00)
[2018-06-11] MEDS: MEGESTROL 40 MG TAB PO ×4 (09:00→20:38)
[2018-06-11] MEDS: LABETALOL 200 MG TAB PO ×2 (09:00→20:38)
[2018-06-11] MEDS: HEPARIN 1000 UNITS/ML 10 ML INJ CATHETER (11:14)
[2018-06-11] MEDS: LINAGLIPTIN 5 MG TABLET PO (11:39)
[2018-06-11] MEDS: INSULIN GLARGINE [LANTus] (100 UNITS/ML) SYG SC (11:47)
[2018-06-11] MEDS: GABAPENTIN 400 MG CAP PO (20:37)
[2018-06-11] MEDS: NORTRIPTYLINE 10 MG CAP PO (20:37)
[2018-06-11] MEDS: ATORVASTATIN 10 MG TAB PO (20:38)
[2018-06-11] MEDS: FAMOTIDINE 20 MG TAB PO (20:38)
[2018-06-12] MEDS: NEOMYC/POLYMYX/HC 10 ML OTIC SUSP LEFT EAR ×3 (06:18→20:47)
[2018-06-12] MEDS: PANTOPRAZOLE (EC) 40 MG TAB PO (06:18)
[2018-06-12] MEDS: ACCU-CHEK XX ×4 (07:45→20:43)
[2018-06-12] MEDS: INSULIN ASPART [NOVOLOG] 3 ML PEN SC ×3 (07:47→17:04)
[2018-06-12] MEDS: COLLAGENASE 5 GM (UD JAR) TOP (08:44)
[2018-06-12] MEDS: CALCIUM ACETATE 667 MG CAP PO ×3 (08:44→17:06)
[2018-06-12] MEDS: MEGESTROL 40 MG TAB PO ×4 (08:45→20:44)
[2018-06-12] MEDS: LINAGLIPTIN 5 MG TABLET PO (08:45)
[2018-06-12] MEDS: LABETALOL 200 MG TAB PO ×2 (08:45→20:46)
[2018-06-12] MEDS: INSULIN GLARGINE [LANTus] (100 UNITS/ML) SYG SC (08:50)
[2018-06-12] MEDS: FLUOXETINE 20 MG CAP PO (14:34)
[2018-06-12] MEDS: GUAIFENESIN/DM 5ML CUP PO (14:50)
[2018-06-12] MEDS: EPOETIN 10000 UNITS/1 ML INJ (ESRD) SC (16:28)
[2018-06-12] MEDS: NORTRIPTYLINE 10 MG CAP PO (20:44)
[2018-06-12] MEDS: ATORVASTATIN 10 MG TAB PO (20:44)
[2018-06-12] MEDS: GABAPENTIN 400 MG CAP PO (20:47)
[2018-06-12] MEDS: FAMOTIDINE 20 MG TAB PO (20:47)
[2018-06-13] MEDS: NEOMYC/POLYMYX/HC 10 ML OTIC SUSP LEFT EAR ×3 (06:00→21:07)
[2018-06-13 07:18] LABS: ADD MAN DIFF? NO
[2018-06-13 07:23] LABS: BASOPHILS % 0.2 % (0.0-2.0); EOSINOPHILS # 0.1 10^3/ul (0.0-0.5); EOSINOPHILS % 0.9 % (0.0-7.0); HEMATOCRIT 26.9 % (37.0-47.0); HEMOGLOBIN 8.3 g/dl (12.0-16.0); LYMPHOCYTES # 0.7 10^3/ul (0.8-2.9); LYMPHOCYTES % 12.3 % (15.0-51.0); MEAN CORPUSCULAR HEMOGLOBIN 28.7 pg (29.0-33.0); MEAN CORPUSCULAR HGB CONC 30.9 g/dl (32.0-37.0); MEAN CORPUSCULAR VOLUME 93.1 fl (82.0-101.0); MEAN PLATELET VOLUME 9.2 fl (7.4-10.4); MONOCYTE # 0.2 10^3/ul (0.3-0.9); MONOCYTES % 3.2 % (0.0-11.0); NEUTROPHIL # 4.4 10^3/ul (1.6-7.5); NEUTROPHILS % 82.5 % (39.0-77.0); PLATELET COUNT 315 10^3/UL (140-415); RED BLOOD COUNT 2.89 10^6/ul (4.20-5.40)
[2018-06-13 07:23] LABS: WHITE BLOOD COUNT 5.3 10^3/ul (4.8-10.8)
[2018-06-13] MEDS: ACCU-CHEK XX ×4 (07:32→21:07)
[2018-06-13 07:40] LABS: INR 1.07; PT RATIO 1.1
[2018-06-13] MEDS: INSULIN ASPART [NOVOLOG] 3 ML PEN SC ×4 (07:40→17:22)
[2018-06-13] MEDS: CALCIUM ACETATE 667 MG CAP PO ×3 (07:41→17:15)
[2018-06-13] MEDS: PANTOPRAZOLE (EC) 40 MG TAB PO (07:41)
[2018-06-13 07:42] LABS: PARTIAL THROMBOPLASTIN TIME 45.1 Sec (23.0-35.0)
[2018-06-13 08:02] LABS: ALANINE AMINOTRANSFERASE 31 IU/L (13-69); ALBUMIN 2.1 g/dl (3.3-4.9); ALBUMIN/GLOBULIN RATIO 0.63; ALKALINE PHOSPHATASE 515 IU/L (42-121); ANION GAP 5 (5-13); ASPARTATE AMINO TRANSFERASE 31 IU/L (15-46); BILIRUBIN,INDIRECT 0.4 mg/dl (0-1.1); BILIRUBIN,TOTAL 0.4 mg/dl (0.2-1.3); BLOOD UREA NITROGEN 39 mg/dl (7-20); CALCIUM 7.9 mg/dl (8.4-10.2); CARBON DIOXIDE 32 mmol/L (21-31); CHLORIDE 95 mmol/L (97-110); CREATININE 4.39 mg/dl (0.44-1.00); GLUCOSE 107 mg/dl (70-220); POTASSIUM 4.9 mmol/L (3.5-5.1); SODIUM 132 mmol/L (135-144); TOTAL PROTEIN 5.4 g/dl (6.1-8.1)
[2018-06-13] MEDS: LINAGLIPTIN 5 MG TABLET PO (08:21)
[2018-06-13] MEDS: FLUOXETINE 20 MG CAP PO (08:21)
[2018-06-13] MEDS: MEGESTROL 40 MG TAB PO (08:21)
[2018-06-13] MEDS: LABETALOL 200 MG TAB PO ×3 (08:22→17:51)
[2018-06-13] MEDS: COLLAGENASE 5 GM (UD JAR) TOP (08:22)
[2018-06-13] MEDS: INSULIN GLARGINE [LANTus] (100 UNITS/ML) SYG SC (08:31)
[2018-06-13] MEDS: HEPARIN 1000 UNITS/ML 10 ML INJ CATHETER (12:42)
[2018-06-13] MEDS: ACETYLCYSTEINE 600 MG CAP PO ×2 (13:47→21:06)
[2018-06-13] MEDS: GUAIFENESIN/DM 5ML CUP PO ×2 (13:50→18:43)
[2018-06-13] MEDS: TIOTROPIUM 18 MCG CAPSULE INHA DEV INH (14:53)
[2018-06-13] MEDS: FLUTICASONE/VILANTEROL 100-25 INH (16:13)
[2018-06-13 20:53] LABS: MAGNESIUM 1.9 mg/dl (1.7-2.5)
[2018-06-13] MEDS: MEGESTROL (40 MG/ML) 10ML CUP PO (21:05)
[2018-06-13] MEDS: GABAPENTIN 400 MG CAP PO (21:06)
[2018-06-13] MEDS: ATORVASTATIN 10 MG TAB PO (21:06)
[2018-06-13] MEDS: NORTRIPTYLINE 10 MG CAP PO (21:06)
[2018-06-13] MEDS: FAMOTIDINE 20 MG TAB PO (21:06)
[2018-06-13] MEDS: METOPROLOL 100 MG TAB PO (21:07)
[2018-06-14] MEDS: PANTOPRAZOLE (EC) 40 MG TAB PO ×2 (06:07→06:08)
[2018-06-14] MEDS: NEOMYC/POLYMYX/HC 10 ML OTIC SUSP LEFT EAR ×3 (06:07→21:51)
[2018-06-14] MEDS ORDERED: CEFAZOLIN 1 GM INJ (07:00)
[2018-06-14] MEDS: ACCU-CHEK XX ×4 (07:25→21:20)
[2018-06-14] MEDS: CALCIUM ACETATE 667 MG CAP PO ×3 (07:55→17:30)
[2018-06-14] MEDS: INSULIN ASPART [NOVOLOG] 3 ML PEN SC ×3 (07:55→17:30)
[2018-06-14] MEDS: LINAGLIPTIN 5 MG TABLET PO (09:00)
[2018-06-14] MEDS: INSULIN GLARGINE [LANTus] (100 UNITS/ML) SYG SC (09:00)
[2018-06-14] MEDS: ACETYLCYSTEINE 600 MG CAP PO ×2 (09:02→21:47)
[2018-06-14] MEDS: MEGESTROL (40 MG/ML) 10ML CUP PO ×2 (09:02→21:45)
[2018-06-14] MEDS: COLLAGENASE 5 GM (UD JAR) TOP (09:03)
[2018-06-14] MEDS: METOPROLOL 100 MG TAB PO ×2 (09:03→21:46)
[2018-06-14] MEDS: FLUOXETINE 20 MG CAP PO (09:03)
[2018-06-14] MEDS: FLUTICASONE/VILANTEROL 100-25 INH (09:04)
[2018-06-14] MEDS: TIOTROPIUM 18 MCG CAPSULE INHA DEV INH (09:04)
[2018-06-14] MEDS ORDERED: GELATIN SIZE 100 SPONGE (10:24)
[2018-06-14] MEDS ORDERED: THROMBIN 5000 UNIT VIAL (10:24)
[2018-06-14] MEDS ORDERED: HEPARIN 1000 UNITS/ML 10 ML INJ (10:25)
[2018-06-14] MEDS ORDERED: LIDOCAINE 1% (MPF) 30 ML INJ INJ (10:29)
[2018-06-14] MEDS ORDERED: PROPOFOL 20 ML (12:10)
[2018-06-14] MEDS ORDERED: MIDAZOLAM 1 MG/ML 2 ML INJ (12:10)
[2018-06-14] MEDS ORDERED: ROPIVACAINE 0.5 % 30 ML VIAL (12:10)
[2018-06-14] MEDS ORDERED: FENTAnyl 50 MCG/ML VIAL (12:10)
[2018-06-14] MEDS ORDERED: LABETALOL HCL 20MG INJ IV (12:30)
[2018-06-14] MEDS ORDERED: OXYCODONE/ACETAMINOPHEN (5/325) TAB PO (12:30)
[2018-06-14] MEDS ORDERED: DIPHENHYDRAMINE 50 MG INJ IV (12:30)
[2018-06-14] MEDS ORDERED: ONDANSETRON 4 MG INJ IV (12:30)
[2018-06-14] MEDS ORDERED: EPHEDrine SULFATE 50 MG/5 ML SYG IV (12:30)
[2018-06-14] MEDS ORDERED: FENTAnyl 50 MCG/ML VIAL IV ×2 (12:30)
[2018-06-14] MEDS ORDERED: MEPERIDINE 25 MG INJ IV (12:30)
[2018-06-14] MEDS ORDERED: hydrALAzine 20 MG INJ IV (12:30)
[2018-06-14] MEDS: LIDOCAINE 1% (MDV) 20 ML INJ INJ ×2 (12:30)
[2018-06-14] MEDS ORDERED: HYDROmorphONE 1 MG/5 ML IV SYRINGE IV ×2 (12:30)
[2018-06-14] MEDS ORDERED: METOCLOPRAMIDE 10 MG INJ (12:57)
[2018-06-14] MEDS ORDERED: ONDANSETRON 4 MG INJ (12:57)
[2018-06-14] MEDS ORDERED: DEXAMETHASONE 4 MG/ML 1 ML INJ (12:57)
[2018-06-14] MEDS: EPOETIN 10000 UNITS/1 ML INJ (ESRD) SC (17:31)
[2018-06-14] MEDS: DOCUSATE SODIUM 100 MG CAP PO (17:52)
[2018-06-14] MEDS: GABAPENTIN 400 MG CAP PO (21:00)
[2018-06-14] MEDS: NORTRIPTYLINE 10 MG CAP PO (21:45)
[2018-06-14] MEDS: ATORVASTATIN 10 MG TAB PO (21:47)
[2018-06-14] MEDS: FAMOTIDINE 20 MG TAB PO (21:48)
[2018-06-15] MEDS: NEOMYC/POLYMYX/HC 10 ML OTIC SUSP LEFT EAR ×4 (02:47→21:00)
[2018-06-15] MEDS: PANTOPRAZOLE (EC) 40 MG TAB PO (06:21)
[2018-06-15] MEDS: ACCU-CHEK XX ×4 (07:25→21:07)
[2018-06-15] MEDS: INSULIN ASPART [NOVOLOG] 3 ML PEN SC ×5 (08:13→21:07)
[2018-06-15] MEDS: METOPROLOL 100 MG TAB PO ×2 (09:00→20:47)
[2018-06-15] MEDS: CALCIUM ACETATE 667 MG CAP PO ×3 (09:07→17:10)
[2018-06-15] MEDS: FLUOXETINE 20 MG CAP PO (09:07)
[2018-06-15] MEDS: MEGESTROL (40 MG/ML) 10ML CUP PO ×2 (09:07→20:46)
[2018-06-15] MEDS: ACETYLCYSTEINE 600 MG CAP PO ×2 (09:07→20:47)
[2018-06-15] MEDS: TIOTROPIUM 18 MCG CAPSULE INHA DEV INH (09:07)
[2018-06-15] MEDS: FLUTICASONE/VILANTEROL 100-25 INH (09:08)
[2018-06-15] MEDS: LINAGLIPTIN 5 MG TABLET PO (09:08)
[2018-06-15] MEDS: COLLAGENASE 5 GM (UD JAR) TOP (09:09)
[2018-06-15] MEDS: INSULIN GLARGINE [LANTus] (100 UNITS/ML) SYG SC (09:18)
[2018-06-15 10:39] LABS: ADD MAN DIFF? NO
[2018-06-15 10:41] LABS: HEMATOCRIT 25.8 % (37.0-47.0); LYMPHOCYTES # 0.6 10^3/ul (0.8-2.9); LYMPHOCYTES % 13.2 % (15.0-51.0); MEAN CORPUSCULAR HEMOGLOBIN 28.9 pg (29.0-33.0); MEAN CORPUSCULAR VOLUME 93.1 fl (82.0-101.0); MEAN PLATELET VOLUME 9.6 fl (7.4-10.4); MONOCYTE # 0.3 10^3/ul (0.3-0.9); MONOCYTES % 7.4 % (0.0-11.0); NEUTROPHIL # 3.6 10^3/ul (1.6-7.5); NEUTROPHILS % 78.5 % (39.0-77.0); PLATELET COUNT 343 10^3/UL (140-415); RED BLOOD COUNT 2.77 10^6/ul (4.20-5.40); RED CELL DISTRIBUTION WIDTH 16.2 % (11.5-14.5)
[2018-06-15 10:41] LABS: WHITE BLOOD COUNT 4.6 10^3/ul (4.8-10.8)
[2018-06-15 11:29] LABS: ANION GAP 11 (5-13); BLOOD UREA NITROGEN 44 mg/dl (7-20); CARBON DIOXIDE 26 mmol/L (21-31); CHLORIDE 94 mmol/L (97-110); CREATININE 4.08 mg/dl (0.44-1.00); GLUCOSE 283 mg/dl (70-220); POTASSIUM 5.2 mmol/L (3.5-5.1); SODIUM 131 mmol/L (135-144)
[2018-06-15] MEDS: HEPARIN 1000 UNITS/ML 10 ML INJ CATHETER (11:46)
[2018-06-15 11:55] LABS: CALCIUM 8.3 mg/dl (8.4-10.2)
[2018-06-15] MEDS: FAMOTIDINE 20 MG TAB PO (20:47)
[2018-06-15] MEDS: GABAPENTIN 400 MG CAP PO (20:47)
[2018-06-15] MEDS: ATORVASTATIN 10 MG TAB PO (20:47)
[2018-06-15] MEDS: NORTRIPTYLINE 10 MG CAP PO (20:48)
[2018-06-15] MEDS: ACETAMINOPHEN 325 MG TAB PO (21:49)
[2018-06-15] MEDS: CEPASTAT LOZENGE MT (22:34)
[2018-06-16] MEDS: INSULIN ASPART [NOVOLOG] 3 ML PEN SC ×9 (02:35→20:31)
[2018-06-16] MEDS: GUAIFENESIN/DM 5ML CUP PO (04:05)
[2018-06-16] MEDS: NEOMYC/POLYMYX/HC 10 ML OTIC SUSP LEFT EAR ×3 (05:11→21:56)
[2018-06-16] MEDS: PANTOPRAZOLE (EC) 40 MG TAB PO (06:28)
[2018-06-16] MEDS: ACCU-CHEK XX ×4 (08:30→20:31)
[2018-06-16] MEDS: INSULIN GLARGINE [LANTus] (100 UNITS/ML) SYG SC ×2 (08:56→14:16)
[2018-06-16] MEDS: COLLAGENASE 5 GM (UD JAR) TOP (09:00)
[2018-06-16] MEDS: TIOTROPIUM 18 MCG CAPSULE INHA DEV INH (09:01)
[2018-06-16] MEDS: FLUOXETINE 20 MG CAP PO (09:04)
[2018-06-16] MEDS: METOPROLOL 100 MG TAB PO ×2 (09:05→20:30)
[2018-06-16] MEDS: CALCIUM ACETATE 667 MG CAP PO ×3 (09:05→18:12)
[2018-06-16] MEDS: ACETYLCYSTEINE 600 MG CAP PO ×2 (09:06→20:28)
[2018-06-16] MEDS: MEGESTROL (40 MG/ML) 10ML CUP PO ×2 (09:06→20:27)
[2018-06-16] MEDS: FLUTICASONE/VILANTEROL 100-25 INH (09:09)
[2018-06-16] MEDS: LINAGLIPTIN 5 MG TABLET PO (09:11)
[2018-06-16] MEDS: ACETAMINOPHEN 325 MG TAB PO ×5 (10:26→20:30)
[2018-06-16] MEDS: ATORVASTATIN 10 MG TAB PO (20:29)
[2018-06-16] MEDS: GABAPENTIN 400 MG CAP PO (20:29)
[2018-06-16] MEDS: CEPASTAT LOZENGE MT (20:30)
[2018-06-16] MEDS: NORTRIPTYLINE 10 MG CAP PO (20:30)
[2018-06-16] MEDS: FAMOTIDINE 20 MG TAB PO (20:30)
[2018-06-17 05:49] LABS: ADD MAN DIFF? NO
[2018-06-17 05:53] LABS: WHITE BLOOD COUNT 4.8 10^3/ul (4.8-10.8)
[2018-06-17 05:54] LABS: EOSINOPHILS # 0.1 10^3/ul (0.0-0.5); EOSINOPHILS % 2.1 % (0.0-7.0); HEMATOCRIT 25.5 % (37.0-47.0); LYMPHOCYTES # 0.9 10^3/ul (0.8-2.9); LYMPHOCYTES % 18.3 % (15.0-51.0); MEAN CORPUSCULAR HEMOGLOBIN 28.2 pg (29.0-33.0); MEAN CORPUSCULAR HGB CONC 31.4 g/dl (32.0-37.0); MEAN CORPUSCULAR VOLUME 89.8 fl (82.0-101.0); MEAN PLATELET VOLUME 9.1 fl (7.4-10.4); MONOCYTE # 0.3 10^3/ul (0.3-0.9); NEUTROPHIL # 3.5 10^3/ul (1.6-7.5); NEUTROPHILS % 72.6 % (39.0-77.0); PLATELET COUNT 327 10^3/UL (140-415); RED BLOOD COUNT 2.84 10^6/ul (4.20-5.40); RED CELL DISTRIBUTION WIDTH 16.2 % (11.5-14.5)
[2018-06-17] MEDS: PANTOPRAZOLE (EC) 40 MG TAB PO (06:05)
[2018-06-17] MEDS: NEOMYC/POLYMYX/HC 10 ML OTIC SUSP LEFT EAR ×3 (06:05→23:06)
[2018-06-17 06:30] LABS: ANION GAP 10 (5-13); BLOOD UREA NITROGEN 46 mg/dl (7-20); CARBON DIOXIDE 26 mmol/L (21-31); CHLORIDE 93 mmol/L (97-110); CREATININE 4.81 mg/dl (0.44-1.00); GLUCOSE 206 mg/dl (70-220); POTASSIUM 4.9 mmol/L (3.5-5.1); SODIUM 129 mmol/L (135-144)
[2018-06-17] MEDS: ACCU-CHEK XX ×4 (07:25→21:00)
[2018-06-17] MEDS: ACETYLCYSTEINE 600 MG CAP PO ×2 (08:20→23:07)
[2018-06-17] MEDS: CALCIUM ACETATE 667 MG CAP PO ×3 (08:20→17:15)
[2018-06-17] MEDS: MEGESTROL (40 MG/ML) 10ML CUP PO ×2 (08:21→21:42)
[2018-06-17] MEDS: LINAGLIPTIN 5 MG TABLET PO (08:21)
[2018-06-17] MEDS: METOPROLOL 100 MG TAB PO ×2 (08:21→21:43)
[2018-06-17] MEDS: INSULIN ASPART [NOVOLOG] 3 ML PEN SC ×7 (08:23→21:48)
[2018-06-17] MEDS: INSULIN GLARGINE [LANTus] (100 UNITS/ML) SYG SC (08:24)
[2018-06-17] MEDS: FLUOXETINE 20 MG CAP PO (08:25)
[2018-06-17] MEDS: FLUTICASONE/VILANTEROL 100-25 INH (08:25)
[2018-06-17] MEDS: TIOTROPIUM 18 MCG CAPSULE INHA DEV INH (08:29)
[2018-06-17] MEDS: COLLAGENASE 5 GM (UD JAR) TOP ×2 (09:00→11:33)
[2018-06-17] MEDS ORDERED: NA PHOSPHATE/BIPHOS 133 ML ENEMA PR (12:00)
[2018-06-17] MEDS: GABAPENTIN 400 MG CAP PO (21:43)
[2018-06-17] MEDS: ATORVASTATIN 10 MG TAB PO (21:44)
[2018-06-17] MEDS: FAMOTIDINE 20 MG TAB PO (21:44)
[2018-06-17] MEDS: NORTRIPTYLINE 10 MG CAP PO (23:07)
[2018-06-17] MEDS: FLUTICASONE 0.05% 16 GM NAS SPRAY NASAL ×2 (23:28→23:29)
[2018-06-17] MEDS: EPOETIN 10000 UNITS/1 ML INJ (ESRD) SC (23:31)
[2018-06-18] MEDS: GUAIFENESIN/DM 5ML CUP PO (04:24)
[2018-06-18] MEDS: NEOMYC/POLYMYX/HC 10 ML OTIC SUSP LEFT EAR ×3 (05:46→21:46)
[2018-06-18] MEDS: INSULIN ASPART [NOVOLOG] 3 ML PEN SC ×7 (07:35→20:58)
[2018-06-18] MEDS: ACCU-CHEK XX ×4 (08:00→21:08)
[2018-06-18] MEDS: COLLAGENASE 5 GM (UD JAR) TOP (08:19)
[2018-06-18] MEDS: FLUTICASONE 0.05% 16 GM NAS SPRAY NASAL ×2 (08:19→21:02)
[2018-06-18] MEDS: MEGESTROL (40 MG/ML) 10ML CUP PO ×2 (08:19→21:01)
[2018-06-18] MEDS: PANTOPRAZOLE (EC) 40 MG TAB PO (08:20)
[2018-06-18] MEDS: ACETYLCYSTEINE 600 MG CAP PO ×2 (08:20→21:02)
[2018-06-18] MEDS: FLUTICASONE/VILANTEROL 100-25 INH (08:20)
[2018-06-18] MEDS: LINAGLIPTIN 5 MG TABLET PO (08:20)
[2018-06-18] MEDS: FLUOXETINE 20 MG CAP PO (08:20)
[2018-06-18] MEDS: CALCIUM ACETATE 667 MG CAP PO ×3 (08:20→17:32)
[2018-06-18] MEDS: INSULIN GLARGINE [LANTus] (100 UNITS/ML) SYG SC (08:21)
[2018-06-18] MEDS: METOPROLOL 100 MG TAB PO ×2 (09:00→21:06)
[2018-06-18] MEDS: HEPARIN 1000 UNITS/ML 10 ML INJ CATHETER (09:26)
[2018-06-18] MEDS: ALBUTEROL/IPRATROPIUM (NEB) 3 ML AMP HHN (11:44)
[2018-06-18] MEDS: TIOTROPIUM 18 MCG CAPSULE INHA DEV INH (17:28)
[2018-06-18] MEDS: GABAPENTIN 400 MG CAP PO (21:02)
[2018-06-18] MEDS: ATORVASTATIN 10 MG TAB PO (21:02)
[2018-06-18] MEDS: NORTRIPTYLINE 25 MG CAP PO (21:03)
[2018-06-18] MEDS: FAMOTIDINE 20 MG TAB PO (21:08)
[2018-06-19] MEDS: NEOMYC/POLYMYX/HC 10 ML OTIC SUSP LEFT EAR ×3 (06:27→21:29)
[2018-06-19] MEDS: PANTOPRAZOLE (EC) 40 MG TAB PO (06:28)
[2018-06-19] MEDS: ACCU-CHEK XX ×4 (07:30→21:00)
[2018-06-19] MEDS: INSULIN ASPART [NOVOLOG] 3 ML PEN SC ×4 (08:20→12:19)
[2018-06-19] MEDS: INSULIN GLARGINE [LANTus] (100 UNITS/ML) SYG SC (08:21)
[2018-06-19] MEDS: FLUTICASONE/VILANTEROL 100-25 INH (08:22)
[2018-06-19] MEDS: TIOTROPIUM 18 MCG CAPSULE INHA DEV INH (08:22)
[2018-06-19] MEDS: COLLAGENASE 5 GM (UD JAR) TOP (08:22)
[2018-06-19] MEDS: FLUTICASONE 0.05% 16 GM NAS SPRAY NASAL ×2 (08:22→21:30)
[2018-06-19] MEDS: ACETYLCYSTEINE 600 MG CAP PO ×2 (08:23→21:28)
[2018-06-19] MEDS: CALCIUM ACETATE 667 MG CAP PO ×3 (08:23→16:47)
[2018-06-19] MEDS: LINAGLIPTIN 5 MG TABLET PO (08:23)
[2018-06-19] MEDS: FLUOXETINE 20 MG CAP PO (08:23)
[2018-06-19] MEDS: MEGESTROL (40 MG/ML) 10ML CUP PO ×2 (08:23→21:29)
[2018-06-19] MEDS: METOPROLOL 100 MG TAB PO ×2 (08:24→21:28)
[2018-06-19] MEDS: BARIUM SULFATE 135 ML (E-Z HD) PO (11:03)
[2018-06-19] MEDS: DEXTROSE 5%-LR 1,000 ML IV (15:10)
[2018-06-19] MEDS: EPOETIN 10000 UNITS/1 ML INJ (ESRD) SC (16:25)
[2018-06-19] MEDS: Insulin NOVOLOG SS MILD Algorithm (NPO/TPN/ENTERAL FEEDS) SC ×2 (16:36→21:59)
[2018-06-19] MEDS ORDERED: INSULIN ASPART [NOVOLOG] 3 ML PEN SC (17:00)
[2018-06-19] MEDS ORDERED: PENDING SANTYL ORDER FOR WOUND CARE XX (18:00)
[2018-06-19] MEDS: ATORVASTATIN 10 MG TAB PO (21:28)
[2018-06-19] MEDS: NORTRIPTYLINE 25 MG CAP PO (21:29)
[2018-06-19] MEDS: FAMOTIDINE 20 MG TAB PO (21:29)
[2018-06-19] MEDS: GABAPENTIN 400 MG CAP PO (21:29)
[2018-06-19] MEDS: CEPASTAT LOZENGE MT (23:48)
[2018-06-20] MEDS: Insulin NOVOLOG SS MILD Algorithm (NPO/TPN/ENTERAL FEEDS) SC ×6 (00:27→21:00)
[2018-06-20] MEDS: ACCU-CHEK XX ×6 (00:27→21:00)
[2018-06-20] MEDS: HYDROCODONE/APAP (5/325) TAB PO (05:09)
[2018-06-20] MEDS: NEOMYC/POLYMYX/HC 10 ML OTIC SUSP LEFT EAR ×3 (05:13→22:00)
[2018-06-20] MEDS: PANTOPRAZOLE (EC) 40 MG TAB PO (07:30)
[2018-06-20] MEDS: CALCIUM ACETATE 667 MG CAP PO ×3 (07:35→17:35)
[2018-06-20] MEDS: METOPROLOL 100 MG TAB PO ×2 (08:50→21:00)
[2018-06-20 08:57] LABS: ADD MAN DIFF? NO
[2018-06-20 08:58] LABS: BASOPHILS % 0.2 % (0.0-2.0); EOSINOPHILS # 0.1 10^3/ul (0.0-0.5); EOSINOPHILS % 1.7 % (0.0-7.0); HEMOGLOBIN 7.4 g/dl (12.0-16.0); LYMPHOCYTES # 0.7 10^3/ul (0.8-2.9); LYMPHOCYTES % 16.3 % (15.0-51.0); MEAN CORPUSCULAR HEMOGLOBIN 28.7 pg (29.0-33.0); MEAN CORPUSCULAR HGB CONC 30.8 g/dl (32.0-37.0); MEAN PLATELET VOLUME 9.9 fl (7.4-10.4); MONOCYTE # 0.2 10^3/ul (0.3-0.9); NEUTROPHIL # 3.1 10^3/ul (1.6-7.5); NEUTROPHILS % 75.6 % (39.0-77.0); PLATELET COUNT 416 10^3/UL (140-415); RED BLOOD COUNT 2.58 10^6/ul (4.20-5.40); RED CELL DISTRIBUTION WIDTH 16.9 % (11.5-14.5)
[2018-06-20] MEDS: ACETYLCYSTEINE 600 MG CAP PO ×2 (09:00→23:45)
[2018-06-20] MEDS: COLLAGENASE 5 GM (UD JAR) TOP (09:00)
[2018-06-20] MEDS: INSULIN GLARGINE [LANTus] (100 UNITS/ML) SYG SC ×2 (09:00→11:58)
[2018-06-20 09:25] LABS: ALBUMIN 2.6 g/dl (3.3-4.9); ALBUMIN/GLOBULIN RATIO 0.81; ALKALINE PHOSPHATASE 222 IU/L (42-121); ANION GAP 11 (5-13); ASPARTATE AMINO TRANSFERASE 14 IU/L (15-46); BILIRUBIN,INDIRECT 0.2 mg/dl (0-1.1); BILIRUBIN,TOTAL 0.2 mg/dl (0.2-1.3); BLOOD UREA NITROGEN 34 mg/dl (7-20); CARBON DIOXIDE 27 mmol/L (21-31); CHLORIDE 96 mmol/L (97-110); CREATININE 3.81 mg/dl (0.44-1.00); GLUCOSE 178 mg/dl (70-220); POTASSIUM 4.8 mmol/L (3.5-5.1); SODIUM 134 mmol/L (135-144); TOTAL PROTEIN 5.8 g/dl (6.1-8.1)
[2018-06-20 09:26] LABS: ALANINE AMINOTRANSFERASE < 6 IU/L (13-69)
[2018-06-20] MEDS: HEPARIN 1000 UNITS/ML 10 ML INJ CATHETER (09:56)
[2018-06-20] MEDS: DEXTROSE 5%-LR 1,000 ML IV (09:58)
[2018-06-20] MEDS: MEGESTROL (40 MG/ML) 10ML CUP PO ×2 (09:59→21:00)
[2018-06-20] MEDS: FLUOXETINE 20 MG CAP PO (09:59)
[2018-06-20] MEDS: LINAGLIPTIN 5 MG TABLET PO (10:01)
[2018-06-20] MEDS: FLUTICASONE/VILANTEROL 100-25 INH (10:07)
[2018-06-20] MEDS: FLUTICASONE 0.05% 16 GM NAS SPRAY NASAL ×2 (10:07→21:00)
[2018-06-20] MEDS: TIOTROPIUM 18 MCG CAPSULE INHA DEV INH (10:07)
[2018-06-20 13:27] LABS: POTASSIUM 4.1 mmol/L (3.5-5.1)
[2018-06-20] MEDS: CEFAZOLIN 2 GM/50 ML (PMX) 50 ML IVPB (15:27)
[2018-06-20] MEDS: LIDOCAINE 2% (SDV) 5 ML INJ (15:54)
[2018-06-20] MEDS: FENTAnyl 50 MCG/ML VIAL (15:55)
[2018-06-20] MEDS: ETOMIDATE 20 MG INJ (15:55)
[2018-06-20] MEDS: NORTRIPTYLINE 25 MG CAP PO (21:00)
[2018-06-20] MEDS: GABAPENTIN 400 MG CAP PO (21:00)
[2018-06-20] MEDS: DEXTROSE 50% 50 ML SYRINGE IV (22:45)
[2018-06-20] MEDS: hydrALAzine 20 MG INJ IV (23:22)
[2018-06-20] MEDS: ATORVASTATIN 10 MG TAB PO (23:45)
[2018-06-20] MEDS: FAMOTIDINE 20 MG TAB PO (23:45)
[2018-06-21] MEDS: DEXTROSE 5%-LR 1,000 ML IV ×2 (00:20→06:24)
[2018-06-21] MEDS: Insulin NOVOLOG SS MILD Algorithm (NPO/TPN/ENTERAL FEEDS) SC ×3 (00:57→09:00)
[2018-06-21] MEDS: ACCU-CHEK XX ×6 (00:57→20:35)
[2018-06-21] MEDS: NEOMYC/POLYMYX/HC 10 ML OTIC SUSP LEFT EAR ×2 (06:24→13:35)
[2018-06-21 07:01] LABS: ADD MAN DIFF? NO
[2018-06-21 07:08] LABS: BASOPHILS % 0.2 % (0.0-2.0); HEMATOCRIT 26.9 % (37.0-47.0); HEMOGLOBIN 8.2 g/dl (12.0-16.0); LYMPHOCYTES % 18.7 % (15.0-51.0); MEAN CORPUSCULAR HEMOGLOBIN 28.3 pg (29.0-33.0); MEAN CORPUSCULAR HGB CONC 30.5 g/dl (32.0-37.0); MEAN CORPUSCULAR VOLUME 92.8 fl (82.0-101.0); NEUTROPHILS % 74.7 % (39.0-77.0); PLATELET COUNT 401 10^3/UL (140-415)
[2018-06-21 07:08] LABS: WHITE BLOOD COUNT 4.5 10^3/ul (4.8-10.8)
[2018-06-21 07:09] LABS: EOSINOPHILS # 0.1 10^3/ul (0.0-0.5); LYMPHOCYTES # 0.8 10^3/ul (0.8-2.9); MONOCYTE # 0.2 10^3/ul (0.3-0.9); NEUTROPHIL # 3.4 10^3/ul (1.6-7.5)
[2018-06-21 07:30] LABS: ALANINE AMINOTRANSFERASE 9 IU/L (13-69); ALBUMIN 2.4 g/dl (3.3-4.9); ALBUMIN/GLOBULIN RATIO 0.68; ALKALINE PHOSPHATASE 224 IU/L (42-121); ANION GAP 10 (5-13); ASPARTATE AMINO TRANSFERASE 19 IU/L (15-46); BLOOD UREA NITROGEN 18 mg/dl (7-20); CALCIUM 8.5 mg/dl (8.4-10.2); CARBON DIOXIDE 29 mmol/L (21-31); CHLORIDE 99 mmol/L (97-110); CREATININE 2.68 mg/dl (0.44-1.00); GLUCOSE 82 mg/dl (70-220); POTASSIUM 4.2 mmol/L (3.5-5.1); SODIUM 138 mmol/L (135-144); TOTAL PROTEIN 5.9 g/dl (6.1-8.1)
[2018-06-21] MEDS: PANTOPRAZOLE (EC) 40 MG TAB PO (07:30)
[2018-06-21] MEDS: COLLAGENASE 5 GM (UD JAR) TOP (09:00)
[2018-06-21] MEDS: FLUTICASONE 0.05% 16 GM NAS SPRAY NASAL ×2 (09:12→20:36)
[2018-06-21] MEDS: FLUTICASONE/VILANTEROL 100-25 INH (09:12)
[2018-06-21] MEDS: LINAGLIPTIN 5 MG TABLET PO (09:13)
[2018-06-21] MEDS: TIOTROPIUM 18 MCG CAPSULE INHA DEV INH (09:13)
[2018-06-21] MEDS: FLUOXETINE 20 MG CAP PO (09:14)
[2018-06-21] MEDS: MEGESTROL (40 MG/ML) 10ML CUP PO (09:14)
[2018-06-21] MEDS: ACETYLCYSTEINE 600 MG CAP PO (09:14)
[2018-06-21] MEDS: CALCIUM ACETATE 667 MG CAP PO ×5 (09:14→20:34)
[2018-06-21] MEDS: METOPROLOL 100 MG TAB PO ×2 (09:14→20:33)
[2018-06-21] MEDS: INSULIN GLARGINE [LANTus] (100 UNITS/ML) SYG SC (09:37)
[2018-06-21] MEDS ORDERED: INSULIN GLARGINE [LANTus] (100 UNITS/ML) SYG SC (14:00)
[2018-06-21] MEDS: EPOETIN 10000 UNITS/1 ML INJ (ESRD) SC (16:59)
[2018-06-21] MEDS: INSULIN ASPART [NOVOLOG] 3 ML PEN SC ×2 (18:00→23:48)
[2018-06-21] MEDS ORDERED: HEPARIN 5,000 UNIT/0.5 ML VIAL (20:15)
[2018-06-21] MEDS: FAMOTIDINE 20 MG TAB PO (20:33)
[2018-06-21] MEDS: GABAPENTIN 400 MG CAP PO (20:34)
[2018-06-21] MEDS: ATORVASTATIN 10 MG TAB PO (20:34)
[2018-06-21] MEDS: NORTRIPTYLINE 25 MG CAP PO (20:34)
[2018-06-21] MEDS: HEPARIN 5,000 UNIT/1 ML VIAL SC (20:35)
[2018-06-22] MEDS: ACCU-CHEK XX ×6 (00:20→21:00)
[2018-06-22] MEDS: INSULIN GLARGINE [LANTus] (100 UNITS/ML) SYG SC ×3 (05:43→23:17)
[2018-06-22] MEDS: INSULIN ASPART [NOVOLOG] 3 ML PEN SC ×3 (05:44→17:10)
[2018-06-22] MEDS: CALCIUM ACETATE 667 MG CAP PO ×3 (05:45→23:11)
[2018-06-22 06:18] LABS: ADD MAN DIFF? NO
[2018-06-22 06:22] LABS: WHITE BLOOD COUNT 5.5 10^3/ul (4.8-10.8)
[2018-06-22 06:22] LABS: BASOPHILS % 0.2 % (0.0-2.0); EOSINOPHILS # 0.1 10^3/ul (0.0-0.5); EOSINOPHILS % 1.1 % (0.0-7.0); HEMATOCRIT 25.6 % (37.0-47.0); HEMOGLOBIN 7.9 g/dl (12.0-16.0); LYMPHOCYTES # 0.8 10^3/ul (0.8-2.9); LYMPHOCYTES % 15.2 % (15.0-51.0); MEAN CORPUSCULAR HEMOGLOBIN 28.5 pg (29.0-33.0); MEAN CORPUSCULAR HGB CONC 30.9 g/dl (32.0-37.0); MEAN CORPUSCULAR VOLUME 92.4 fl (82.0-101.0); MEAN PLATELET VOLUME 9.2 fl (7.4-10.4); MONOCYTE # 0.2 10^3/ul (0.3-0.9); MONOCYTES % 2.9 % (0.0-11.0); NEUTROPHIL # 4.4 10^3/ul (1.6-7.5); NEUTROPHILS % 80.1 % (39.0-77.0); PLATELET COUNT 411 10^3/UL (140-415); RED BLOOD COUNT 2.77 10^6/ul (4.20-5.40); RED CELL DISTRIBUTION WIDTH 16.7 % (11.5-14.5)
[2018-06-22 06:40] LABS: PHOSPHORUS 2.1 mg/dl (2.5-4.9)
[2018-06-22 06:40] LABS: MAGNESIUM 1.9 mg/dl (1.7-2.5)
[2018-06-22 07:17] LABS: ALBUMIN 2.5 g/dl (3.3-4.9); ALBUMIN/GLOBULIN RATIO 0.69; ALKALINE PHOSPHATASE 277 IU/L (42-121); ANION GAP 11 (5-13); ASPARTATE AMINO TRANSFERASE 27 IU/L (15-46); BILIRUBIN,INDIRECT 0.1 mg/dl (0-1.1); BILIRUBIN,TOTAL 0.1 mg/dl (0.2-1.3); BLOOD UREA NITROGEN 31 mg/dl (7-20); CALCIUM 8.5 mg/dl (8.4-10.2); CARBON DIOXIDE 27 mmol/L (21-31); CHLORIDE 98 mmol/L (97-110); CREATININE 3.22 mg/dl (0.44-1.00); GLUCOSE 147 mg/dl (70-220); POTASSIUM 4.5 mmol/L (3.5-5.1); SODIUM 136 mmol/L (135-144); TOTAL PROTEIN 6.1 g/dl (6.1-8.1)
[2018-06-22 07:27] LABS: ALANINE AMINOTRANSFERASE < 6 IU/L (13-69)
[2018-06-22] MEDS ORDERED: HEPARIN 5,000 UNIT/0.5 ML VIAL ×2 (07:43→20:02)
[2018-06-22] MEDS: HEPARIN 5,000 UNIT/1 ML VIAL SC ×2 (08:37→23:19)
[2018-06-22] MEDS: COLLAGENASE 5 GM (UD JAR) TOP (08:37)
[2018-06-22] MEDS: TIOTROPIUM 18 MCG CAPSULE INHA DEV INH (08:39)
[2018-06-22] MEDS: FLUOXETINE 20 MG CAP PO (08:40)
[2018-06-22] MEDS: METOPROLOL 100 MG TAB PO ×2 (08:40→21:00)
[2018-06-22] MEDS: LINAGLIPTIN 5 MG TABLET PO (08:43)
[2018-06-22] MEDS: ACETAMINOPHEN 325 MG TAB PO (09:14)
[2018-06-22] MEDS: FLUTICASONE 0.05% 16 GM NAS SPRAY NASAL ×2 (10:05→23:11)
[2018-06-22] MEDS: ATORVASTATIN 10 MG TAB PO (23:10)
[2018-06-22] MEDS: FAMOTIDINE 20 MG TAB PO (23:10)
[2018-06-22] MEDS: NORTRIPTYLINE 25 MG CAP PO (23:11)
[2018-06-22] MEDS: GABAPENTIN 400 MG CAP PO (23:11)
[2018-06-23] MEDS: ACCU-CHEK XX ×5 (01:00→17:00)
[2018-06-23] MEDS: HEPARIN 1000 UNITS/ML 10 ML INJ CATHETER (01:18)
[2018-06-23] MEDS: DEXTROSE 50% 50 ML SYRINGE IV ×2 (02:00→03:55)
[2018-06-23] MEDS: INSULIN GLARGINE [LANTus] (100 UNITS/ML) SYG SC ×2 (06:00→21:25)
[2018-06-23] MEDS: INSULIN ASPART [NOVOLOG] 3 ML PEN SC ×2 (06:00)
[2018-06-23] MEDS: CALCIUM ACETATE 667 MG CAP PO ×3 (06:40→22:25)
[2018-06-23] MEDS: FLUTICASONE 0.05% 16 GM NAS SPRAY NASAL ×2 (09:00→21:19)
[2018-06-23] MEDS: FLUOXETINE 20 MG CAP PO (09:00)
[2018-06-23] MEDS: TIOTROPIUM 18 MCG CAPSULE INHA DEV INH (09:00)
[2018-06-23] MEDS ORDERED: HEPARIN 5,000 UNIT/0.5 ML VIAL ×2 (09:01→20:42)
[2018-06-23] MEDS: COLLAGENASE 5 GM (UD JAR) TOP (09:58)
[2018-06-23] MEDS: METOPROLOL 100 MG TAB PO ×2 (09:59→21:21)
[2018-06-23] MEDS: LINAGLIPTIN 5 MG TABLET PO (10:00)
[2018-06-23] MEDS: HEPARIN 5,000 UNIT/1 ML VIAL SC ×2 (10:59→21:23)
[2018-06-23] MEDS: GABAPENTIN 400 MG CAP PO (21:20)
[2018-06-23] MEDS: ATORVASTATIN 10 MG TAB PO (21:20)
[2018-06-23] MEDS: NORTRIPTYLINE 25 MG CAP PO (21:20)
[2018-06-23] MEDS: FAMOTIDINE 20 MG TAB PO (21:20)
[2018-06-23] MEDS: HYDROCODONE/APAP (5/325) TAB PO (22:25)
[2018-06-24] MEDS: CALCIUM ACETATE 667 MG CAP PO ×2 (05:19→14:02)
[2018-06-24] MEDS: ACCU-CHEK XX ×5 (05:20→23:45)
[2018-06-24 06:41] LABS: ADD MAN DIFF? NO
[2018-06-24 06:48] LABS: WHITE BLOOD COUNT 5.1 10^3/ul (4.8-10.8)
[2018-06-24 06:48] LABS: ABNORMAL IP MESSAGE 1; BASOPHILS % 0.2 % (0.0-2.0); EOSINOPHILS # 0.2 10^3/ul (0.0-0.5); EOSINOPHILS % 3.4 % (0.0-7.0); HEMATOCRIT 23.1 % (37.0-47.0); LYMPHOCYTES # 0.5 10^3/ul (0.8-2.9); LYMPHOCYTES % 10.5 % (15.0-51.0); MEAN CORPUSCULAR HEMOGLOBIN 28.3 pg (29.0-33.0); MEAN CORPUSCULAR HGB CONC 30.3 g/dl (32.0-37.0); MEAN CORPUSCULAR VOLUME 93.5 fl (82.0-101.0); MEAN PLATELET VOLUME 9.2 fl (7.4-10.4); MONOCYTE # 0.2 10^3/ul (0.3-0.9); MONOCYTES % 3.2 % (0.0-11.0); NEUTROPHIL # 4.2 10^3/ul (1.6-7.5); NEUTROPHILS % 82.1 % (39.0-77.0); PLATELET COUNT 393 10^3/UL (140-415); RED BLOOD COUNT 2.47 10^6/ul (4.20-5.40); RED CELL DISTRIBUTION WIDTH 16.5 % (11.5-14.5)
[2018-06-24 06:53] LABS: POSITIVE DIFF @See below
[2018-06-24 07:27] LABS: ALANINE AMINOTRANSFERASE 7 IU/L (13-69); ALBUMIN 2.5 g/dl (3.3-4.9); ALBUMIN/GLOBULIN RATIO 0.75; ALKALINE PHOSPHATASE 212 IU/L (42-121); ANION GAP 6 (5-13); ASPARTATE AMINO TRANSFERASE 22 IU/L (15-46); BILIRUBIN,INDIRECT 0.2 mg/dl (0-1.1); BILIRUBIN,TOTAL 0.2 mg/dl (0.2-1.3); BLOOD UREA NITROGEN 39 mg/dl (7-20); CALCIUM 7.6 mg/dl (8.4-10.2); CARBON DIOXIDE 30 mmol/L (21-31); CHLORIDE 99 mmol/L (97-110); CREATININE 2.45 mg/dl (0.44-1.00); GLUCOSE 166 mg/dl (70-220); POTASSIUM 4.6 mmol/L (3.5-5.1); SODIUM 135 mmol/L (135-144); TOTAL PROTEIN 5.8 g/dl (6.1-8.1)
[2018-06-24] MEDS: FLUOXETINE 20 MG CAP PO ×2 (09:00→09:37)
[2018-06-24] MEDS ORDERED: HEPARIN 5,000 UNIT/0.5 ML VIAL ×2 (09:27→20:29)
[2018-06-24] MEDS: TIOTROPIUM 18 MCG CAPSULE INHA DEV INH (09:35)
[2018-06-24] MEDS: COLLAGENASE 5 GM (UD JAR) TOP (09:35)
[2018-06-24] MEDS: FLUTICASONE 0.05% 16 GM NAS SPRAY NASAL ×2 (09:35→20:46)
[2018-06-24] MEDS: LINAGLIPTIN 5 MG TABLET PO (09:37)
[2018-06-24] MEDS: METOPROLOL 100 MG TAB PO (09:37)
[2018-06-24] MEDS: HEPARIN 5,000 UNIT/1 ML VIAL SC ×2 (10:00→21:00)
[2018-06-24] MEDS: INSULIN GLARGINE [LANTus] (100 UNITS/ML) SYG SC ×2 (10:00→21:00)
[2018-06-24] MEDS: EPOETIN 10000 UNITS/1 ML INJ (ESRD) SC (17:21)
[2018-06-24] MEDS: CALCIUM ACETATE 667 MG CAP PEG ×2 (17:41→23:46)
[2018-06-24] MEDS: GABAPENTIN 400 MG CAP PEG (20:44)
[2018-06-24] MEDS: FAMOTIDINE 20 MG TAB PEG (20:44)
[2018-06-24] MEDS: METOPROLOL 100 MG TAB PEG (20:45)
[2018-06-24] MEDS: ATORVASTATIN 10 MG TAB PEG (20:45)
[2018-06-24] MEDS: NORTRIPTYLINE 25 MG CAP PEG (20:46)
[2018-06-25] MEDS: ACCU-CHEK XX ×4 (06:00→21:00)
[2018-06-25] MEDS: CALCIUM ACETATE 667 MG CAP PEG ×4 (06:27→23:58)
[2018-06-25] MEDS: INSULIN ASPART [NOVOLOG] 3 ML PEN SC ×3 (06:48→21:23)
[2018-06-25] MEDS ORDERED: HEPARIN 5,000 UNIT/0.5 ML VIAL ×3 (09:13→20:20)
[2018-06-25] MEDS: LINAGLIPTIN 5 MG TABLET PEG (10:14)
[2018-06-25] MEDS: METOPROLOL 100 MG TAB PEG ×2 (10:15→21:13)
[2018-06-25] MEDS: TIOTROPIUM 18 MCG CAPSULE INHA DEV INH (10:16)
[2018-06-25] MEDS: FLUTICASONE 0.05% 16 GM NAS SPRAY NASAL ×2 (10:16→21:11)
[2018-06-25] MEDS: FLUOXETINE 20 MG CAP PEG (10:16)
[2018-06-25] MEDS: HEPARIN 5,000 UNIT/1 ML VIAL SC ×2 (10:30→21:22)
[2018-06-25] MEDS: INSULIN GLARGINE [LANTus] (100 UNITS/ML) SYG SC ×2 (10:30→21:24)
[2018-06-25] MEDS: COLLAGENASE 5 GM (UD JAR) TOP (10:32)
[2018-06-25 12:16] LABS: WHITE BLOOD COUNT 6.1 10^3/ul (4.8-10.8)
[2018-06-25 12:16] LABS: ABNORMAL IP MESSAGE 1; MEAN CORPUSCULAR HEMOGLOBIN 28.4 pg (29.0-33.0); MEAN CORPUSCULAR HGB CONC 30.5 g/dl (32.0-37.0); MEAN PLATELET VOLUME 9.5 fl (7.4-10.4); PLATELET COUNT 387 10^3/UL (140-415); RED BLOOD COUNT 2.15 10^6/ul (4.20-5.40); RED CELL DISTRIBUTION WIDTH 16.6 % (11.5-14.5)
[2018-06-25 12:17] LABS: POSITIVE DIFF @See below
[2018-06-25 12:20] LABS: HEMOGLOBIN 6.1 g/dl (12.0-16.0)
[2018-06-25 12:21] LABS: ADD MAN DIFF? YES
[2018-06-25 12:47] LABS: ANISOCYTOSIS 1+ (0-0); EOSINOPHILS % (M) 2 % (0-7); GIANT THROMBO% (M) 1 % (0-0); LYMPHOCYTES #M 0.6 10^3/ul (0.8-2.9); LYMPHOCYTES % (M) 10 % (15-51); MONOCYTES % (M) 1 % (0-11); PLATELET ESTIMATE NORMAL; POLYCHROMASIA 3+ (0-0); SEGMENTED NEUTROPHILS (M) % 87 % (39-77)
[2018-06-25] MEDS: HEPARIN 1000 UNITS/ML 10 ML INJ CATHETER (14:33)
[2018-06-25] MEDS: ACETAMINOPHEN 325 MG TAB PO (17:31)
[2018-06-25 20:18] LABS: IMMEDIATE SPIN CROSSMATCH 1 2
[2018-06-25] MEDS: GABAPENTIN 400 MG CAP PEG (21:12)
[2018-06-25] MEDS: ATORVASTATIN 10 MG TAB PEG (21:12)
[2018-06-25] MEDS: FAMOTIDINE 20 MG TAB PEG (21:12)
[2018-06-25] MEDS: NORTRIPTYLINE 25 MG CAP PEG (21:14)
[2018-06-26] MEDS: ACCU-CHEK XX ×6 (01:00→21:00)
[2018-06-26] MEDS: INSULIN ASPART [NOVOLOG] 3 ML PEN SC ×6 (01:34→21:43)
[2018-06-26] MEDS: CALCIUM ACETATE 667 MG CAP PEG ×4 (06:06→23:41)
[2018-06-26 07:50] LABS: ADD MAN DIFF? NO
[2018-06-26 07:53] LABS: WHITE BLOOD COUNT 7.3 10^3/ul (4.8-10.8)
[2018-06-26 07:53] LABS: BASOPHILS % 0.1 % (0.0-2.0); EOSINOPHILS # 0.2 10^3/ul (0.0-0.5); EOSINOPHILS % 2.6 % (0.0-7.0); HEMATOCRIT 29.1 % (37.0-47.0); HEMOGLOBIN 9.3 g/dl (12.0-16.0); LYMPHOCYTES # 0.7 10^3/ul (0.8-2.9); LYMPHOCYTES % 10.1 % (15.0-51.0); MEAN CORPUSCULAR HEMOGLOBIN 28.4 pg (29.0-33.0); MEAN CORPUSCULAR VOLUME 88.7 fl (82.0-101.0); MEAN PLATELET VOLUME 9.2 fl (7.4-10.4); MONOCYTE # 0.3 10^3/ul (0.3-0.9); MONOCYTES % 4.1 % (0.0-11.0); NEUTROPHILS % 82.3 % (39.0-77.0); PLATELET COUNT 379 10^3/UL (140-415); RED BLOOD COUNT 3.28 10^6/ul (4.20-5.40); RED CELL DISTRIBUTION WIDTH 16.5 % (11.5-14.5)
[2018-06-26 08:15] LABS: ALANINE AMINOTRANSFERASE 12 IU/L (13-69); ALBUMIN 2.8 g/dl (3.3-4.9); ALBUMIN/GLOBULIN RATIO 0.87; ALKALINE PHOSPHATASE 359 IU/L (42-121); ANION GAP 7 (5-13); ASPARTATE AMINO TRANSFERASE 17 IU/L (15-46); BILIRUBIN,INDIRECT 0.1 mg/dl (0-1.1); BILIRUBIN,TOTAL 0.1 mg/dl (0.2-1.3); BLOOD UREA NITROGEN 44 mg/dl (7-20); CALCIUM 7.9 mg/dl (8.4-10.2); CARBON DIOXIDE 31 mmol/L (21-31); CHLORIDE 95 mmol/L (97-110); GLUCOSE 306 mg/dl (70-220); POTASSIUM 4.1 mmol/L (3.5-5.1); SODIUM 133 mmol/L (135-144)
[2018-06-26 08:47] LABS: ALANINE AMINOTRANSFERASE 12 IU/L (13-69); ALBUMIN 2.5 g/dl (3.3-4.9); ALKALINE PHOSPHATASE 364 IU/L (42-121); ANION GAP 8 (5-13); ASPARTATE AMINO TRANSFERASE 18 IU/L (15-46); BILIRUBIN,INDIRECT 0.1 mg/dl (0-1.1); BILIRUBIN,TOTAL 0.1 mg/dl (0.2-1.3); BLOOD UREA NITROGEN 44 mg/dl (7-20); CARBON DIOXIDE 30 mmol/L (21-31); CHLORIDE 94 mmol/L (97-110); GLUCOSE 299 mg/dl (70-220); POTASSIUM 4.5 mmol/L (3.5-5.1); SODIUM 132 mmol/L (135-144); TOTAL PROTEIN 5.6 g/dl (6.1-8.1)
[2018-06-26] MEDS: TIOTROPIUM 18 MCG CAPSULE INHA DEV INH (09:00)
[2018-06-26] MEDS: INSULIN GLARGINE [LANTus] (100 UNITS/ML) SYG SC ×4 (09:00→21:43)
[2018-06-26] MEDS ORDERED: HEPARIN 5,000 UNIT/0.5 ML VIAL ×2 (09:04→20:09)
[2018-06-26] MEDS: FLUTICASONE 0.05% 16 GM NAS SPRAY NASAL ×2 (09:10→21:31)
[2018-06-26] MEDS: FLUOXETINE 20 MG CAP PEG (09:10)
[2018-06-26] MEDS: METOPROLOL 100 MG TAB PEG ×2 (09:11→21:30)
[2018-06-26] MEDS: LINAGLIPTIN 5 MG TABLET PEG (09:12)
[2018-06-26] MEDS: HEPARIN 5,000 UNIT/1 ML VIAL SC ×2 (09:13→21:42)
[2018-06-26] MEDS: COLLAGENASE 5 GM (UD JAR) TOP (09:16)
[2018-06-26] MEDS: EPOETIN 10000 UNITS/1 ML INJ (ESRD) SC (16:17)
[2018-06-26] MEDS: ATORVASTATIN 10 MG TAB PEG (21:29)
[2018-06-26] MEDS: FAMOTIDINE 20 MG TAB PEG (21:30)
[2018-06-26] MEDS: NORTRIPTYLINE 25 MG CAP PEG (21:31)
[2018-06-26] MEDS: GABAPENTIN 400 MG CAP PEG (21:31)
[2018-06-27] MEDS: ACCU-CHEK XX ×6 (01:00→20:21)
[2018-06-27] MEDS: INSULIN ASPART [NOVOLOG] 3 ML PEN SC ×6 (01:32→20:20)
[2018-06-27] MEDS: CALCIUM ACETATE 667 MG CAP PEG ×4 (06:09→23:25)
[2018-06-27] MEDS: METOPROLOL 100 MG TAB PEG ×3 (09:00→20:16)
[2018-06-27] MEDS: FLUOXETINE 20 MG CAP PEG ×2 (09:00→09:08)
[2018-06-27] MEDS ORDERED: HEPARIN 5,000 UNIT/0.5 ML VIAL ×2 (09:02→20:10)
[2018-06-27] MEDS: LINAGLIPTIN 5 MG TABLET PEG (09:08)
[2018-06-27] MEDS: TIOTROPIUM 18 MCG CAPSULE INHA DEV INH (09:08)
[2018-06-27] MEDS: COLLAGENASE 5 GM (UD JAR) TOP (09:08)
[2018-06-27] MEDS: FLUTICASONE 0.05% 16 GM NAS SPRAY NASAL ×2 (09:09→20:14)
[2018-06-27] MEDS: INSULIN GLARGINE [LANTus] (100 UNITS/ML) SYG SC ×3 (09:15→21:09)
[2018-06-27] MEDS: HEPARIN 5,000 UNIT/1 ML VIAL SC ×2 (09:16→20:18)
[2018-06-27 13:58] LABS: ADD MAN DIFF? NO
[2018-06-27 14:02] LABS: WHITE BLOOD COUNT 9.6 10^3/ul (4.8-10.8)
[2018-06-27 14:02] LABS: BASOPHILS % 0.2 % (0.0-2.0); EOSINOPHILS # 0.2 10^3/ul (0.0-0.5); EOSINOPHILS % 1.6 % (0.0-7.0); HEMATOCRIT 28.2 % (37.0-47.0); HEMOGLOBIN 9.1 g/dl (12.0-16.0); LYMPHOCYTES # 0.8 10^3/ul (0.8-2.9); LYMPHOCYTES % 8.2 % (15.0-51.0); MEAN CORPUSCULAR HEMOGLOBIN 28.8 pg (29.0-33.0); MEAN CORPUSCULAR HGB CONC 32.3 g/dl (32.0-37.0); MEAN CORPUSCULAR VOLUME 89.2 fl (82.0-101.0); MEAN PLATELET VOLUME 9.8 fl (7.4-10.4); MONOCYTE # 0.3 10^3/ul (0.3-0.9); MONOCYTES % 3.1 % (0.0-11.0); NEUTROPHIL # 8.3 10^3/ul (1.6-7.5); NEUTROPHILS % 85.8 % (39.0-77.0); PLATELET COUNT 407 10^3/UL (140-415); RED BLOOD COUNT 3.16 10^6/ul (4.20-5.40); RED CELL DISTRIBUTION WIDTH 16.3 % (11.5-14.5)
[2018-06-27 14:18] LABS: ANION GAP 9 (5-13); BLOOD UREA NITROGEN 70 mg/dl (7-20); CALCIUM 8.7 mg/dl (8.4-10.2); CARBON DIOXIDE 30 mmol/L (21-31); CHLORIDE 91 mmol/L (97-110); CREATININE 3.29 mg/dl (0.44-1.00); GLUCOSE 386 mg/dl (70-220); POTASSIUM 4.6 mmol/L (3.5-5.1); SODIUM 130 mmol/L (135-144)
[2018-06-27] MEDS: FAMOTIDINE 20 MG TAB PEG (20:15)
[2018-06-27] MEDS: GABAPENTIN 400 MG CAP PEG (20:15)
[2018-06-27] MEDS: ATORVASTATIN 10 MG TAB PEG (20:15)
[2018-06-27] MEDS: NORTRIPTYLINE 25 MG CAP PEG (20:16)
[2018-06-28] MEDS: INSULIN ASPART [NOVOLOG] 3 ML PEN SC ×6 (00:34→21:22)
[2018-06-28] MEDS: ACCU-CHEK XX ×6 (00:35→21:33)
[2018-06-28] MEDS: CALCIUM ACETATE 667 MG CAP PEG ×4 (05:20→23:49)
[2018-06-28] MEDS: DOCUSATE SODIUM 100 MG CAP PO ×2 (05:20→23:49)
[2018-06-28] MEDS ORDERED: HEPARIN 5,000 UNIT/0.5 ML VIAL ×2 (08:43→20:24)
[2018-06-28] MEDS: FLUTICASONE 0.05% 16 GM NAS SPRAY NASAL ×2 (08:53→21:14)
[2018-06-28] MEDS: COLLAGENASE 5 GM (UD JAR) TOP (08:53)
[2018-06-28] MEDS: METOPROLOL 100 MG TAB PEG ×2 (08:54→21:16)
[2018-06-28] MEDS: LINAGLIPTIN 5 MG TABLET PEG (08:55)
[2018-06-28] MEDS: HEPARIN 5,000 UNIT/1 ML VIAL SC ×2 (09:03→21:20)
[2018-06-28] MEDS: TIOTROPIUM 18 MCG CAPSULE INHA DEV INH (10:04)
[2018-06-28] MEDS: INSULIN GLARGINE [LANTus] (100 UNITS/ML) SYG SC ×2 (10:11→21:21)
[2018-06-28 11:33] LABS: ADD MAN DIFF? NO
[2018-06-28 11:39] LABS: BASOPHILS % 0.1 % (0.0-2.0); EOSINOPHILS # 0.2 10^3/ul (0.0-0.5); EOSINOPHILS % 2.5 % (0.0-7.0); HEMOGLOBIN 8.9 g/dl (12.0-16.0); LYMPHOCYTES # 0.9 10^3/ul (0.8-2.9); LYMPHOCYTES % 9.9 % (15.0-51.0); MEAN CORPUSCULAR HEMOGLOBIN 28.5 pg (29.0-33.0); MEAN CORPUSCULAR HGB CONC 31.8 g/dl (32.0-37.0); MEAN CORPUSCULAR VOLUME 89.7 fl (82.0-101.0); MEAN PLATELET VOLUME 9.2 fl (7.4-10.4); MONOCYTE # 0.3 10^3/ul (0.3-0.9); MONOCYTES % 2.9 % (0.0-11.0); NEUTROPHIL # 7.3 10^3/ul (1.6-7.5); NEUTROPHILS % 83.7 % (39.0-77.0); PLATELET COUNT 392 10^3/UL (140-415); RED BLOOD COUNT 3.12 10^6/ul (4.20-5.40); RED CELL DISTRIBUTION WIDTH 16.4 % (11.5-14.5)
[2018-06-28 11:39] LABS: WHITE BLOOD COUNT 8.7 10^3/ul (4.8-10.8)
[2018-06-28 12:01] LABS: AMMONIA < 9 umol/l (9-30)
[2018-06-28 12:22] LABS: ALANINE AMINOTRANSFERASE 15 IU/L (13-69); ALBUMIN 2.4 g/dl (3.3-4.9); ALBUMIN/GLOBULIN RATIO 0.85; ALKALINE PHOSPHATASE 502 IU/L (42-121); ANION GAP 11 (5-13); ASPARTATE AMINO TRANSFERASE 37 IU/L (15-46); BILIRUBIN,INDIRECT 0.1 mg/dl (0-1.1); BILIRUBIN,TOTAL 0.1 mg/dl (0.2-1.3); BLOOD UREA NITROGEN 65 mg/dl (7-20); CALCIUM 8.2 mg/dl (8.4-10.2); CARBON DIOXIDE 30 mmol/L (21-31); CHLORIDE 90 mmol/L (97-110); CREATININE 2.61 mg/dl (0.44-1.00); GLUCOSE 280 mg/dl (70-220); POTASSIUM 4.6 mmol/L (3.5-5.1); SODIUM 131 mmol/L (135-144); TOTAL PROTEIN 5.2 g/dl (6.1-8.1)
[2018-06-28] MEDS: EPOETIN 10000 UNITS/1 ML INJ (ESRD) SC (17:20)
[2018-06-28] MEDS: BUPROPION 75 MG TAB PEG (21:15)
[2018-06-28] MEDS: NORTRIPTYLINE 25 MG CAP PEG (21:16)
[2018-06-28] MEDS: ATORVASTATIN 10 MG TAB PEG (21:17)
[2018-06-28] MEDS: FAMOTIDINE 20 MG TAB PEG (21:17)
[2018-06-28] MEDS: GABAPENTIN 300 MG CAP PEG (21:17)
[2018-06-28] MEDS: VENLAFAXINE 37.5 MG TAB GTB (23:49)
[2018-06-29] MEDS: COLLAGENASE 5 GM (UD JAR) TOP ×2 (00:16→12:57)
[2018-06-29] MEDS: ACCU-CHEK XX ×6 (00:17→21:00)
[2018-06-29] MEDS: INSULIN ASPART [NOVOLOG] 3 ML PEN SC ×6 (00:20→21:00)
[2018-06-29] MEDS: ACETAMINOPHEN 325 MG TAB PO (00:21)
[2018-06-29] MEDS: CALCIUM ACETATE 667 MG CAP PEG ×3 (04:58→17:55)
[2018-06-29] MEDS: INSULIN GLARGINE [LANTus] (100 UNITS/ML) SYG SC ×2 (09:43→22:14)
[2018-06-29] MEDS ORDERED: HEPARIN 5,000 UNIT/0.5 ML VIAL ×2 (12:47→21:50)
[2018-06-29] MEDS: BUPROPION 75 MG TAB PEG ×2 (12:58→21:57)
[2018-06-29] MEDS: VENLAFAXINE 37.5 MG TAB GTB ×2 (12:59→21:58)
[2018-06-29] MEDS: METOPROLOL 100 MG TAB PEG ×2 (12:59→21:59)
[2018-06-29] MEDS: FLUTICASONE 0.05% 16 GM NAS SPRAY NASAL ×2 (13:00→21:00)
[2018-06-29] MEDS: TIOTROPIUM 18 MCG CAPSULE INHA DEV INH (13:00)
[2018-06-29] MEDS: HEPARIN 5,000 UNIT/1 ML VIAL SC ×2 (14:18→22:16)
[2018-06-29] MEDS: ATORVASTATIN 10 MG TAB PEG (21:57)
[2018-06-29] MEDS: FAMOTIDINE 20 MG TAB PEG (21:57)
[2018-06-29] MEDS: GABAPENTIN 300 MG CAP PEG (21:58)
[2018-06-29] MEDS: NORTRIPTYLINE 25 MG CAP PEG (21:58)
[2018-06-30] MEDS: CALCIUM ACETATE 667 MG CAP PEG ×5 (00:26→23:49)
[2018-06-30] MEDS: ACCU-CHEK XX ×6 (01:00→21:00)
[2018-06-30] MEDS: INSULIN ASPART [NOVOLOG] 3 ML PEN SC ×6 (01:14→21:09)
[2018-06-30] MEDS: ALBUTEROL/IPRATROPIUM (NEB) 3 ML AMP HHN ×2 (01:42→18:14)
[2018-06-30] MEDS: HYDROCODONE/APAP (5/325) TAB PO (01:54)
[2018-06-30 06:41] LABS: ADD MAN DIFF? NO
[2018-06-30 06:42] LABS: WHITE BLOOD COUNT 10.2 10^3/ul (4.8-10.8)
[2018-06-30 06:42] LABS: BASOPHILS % 0.1 % (0.0-2.0); EOSINOPHILS # 0.1 10^3/ul (0.0-0.5); EOSINOPHILS % 0.7 % (0.0-7.0); HEMATOCRIT 29.9 % (37.0-47.0); HEMOGLOBIN 9.2 g/dl (12.0-16.0); LYMPHOCYTES # 0.7 10^3/ul (0.8-2.9); LYMPHOCYTES % 6.5 % (15.0-51.0); MEAN CORPUSCULAR HGB CONC 30.8 g/dl (32.0-37.0); MEAN CORPUSCULAR VOLUME 91.2 fl (82.0-101.0); MEAN PLATELET VOLUME 9.3 fl (7.4-10.4); MONOCYTE # 0.2 10^3/ul (0.3-0.9); MONOCYTES % 2.1 % (0.0-11.0); NEUTROPHIL # 9.2 10^3/ul (1.6-7.5); PLATELET COUNT 455 10^3/UL (140-415); RED BLOOD COUNT 3.28 10^6/ul (4.20-5.40); RED CELL DISTRIBUTION WIDTH 17.5 % (11.5-14.5)
[2018-06-30 07:01] LABS: ANION GAP 12 (5-13); BLOOD UREA NITROGEN 61 mg/dl (7-20); CALCIUM 9.2 mg/dl (8.4-10.2); CARBON DIOXIDE 30 mmol/L (21-31); CHLORIDE 96 mmol/L (97-110); GLUCOSE 270 mg/dl (70-220); POTASSIUM 4.5 mmol/L (3.5-5.1); SODIUM 138 mmol/L (135-144)
[2018-06-30] MEDS ORDERED: HEPARIN 5,000 UNIT/0.5 ML VIAL ×2 (08:54→20:09)
[2018-06-30] MEDS: DOCUSATE SODIUM 10 MG/ML (10ML CUP) GTB (09:02)
[2018-06-30] MEDS: BUPROPION 75 MG TAB PEG ×2 (09:03→20:48)
[2018-06-30] MEDS: METOPROLOL 100 MG TAB PEG ×2 (09:04→20:50)
[2018-06-30] MEDS: VENLAFAXINE 37.5 MG TAB GTB ×2 (09:04→21:12)
[2018-06-30] MEDS: FLUTICASONE 0.05% 16 GM NAS SPRAY NASAL ×2 (09:06→20:47)
[2018-06-30] MEDS: TIOTROPIUM 18 MCG CAPSULE INHA DEV INH (09:06)
[2018-06-30] MEDS: HEPARIN 5,000 UNIT/1 ML VIAL SC ×2 (09:19→21:10)
[2018-06-30] MEDS: INSULIN GLARGINE [LANTus] (100 UNITS/ML) SYG SC ×2 (09:21→20:55)
[2018-06-30] MEDS: ONDANSETRON 4 MG INJ IV (13:24)
[2018-06-30] MEDS: GABAPENTIN 300 MG CAP PEG (20:48)
[2018-06-30] MEDS: FAMOTIDINE 20 MG TAB PEG (20:48)
[2018-06-30] MEDS: NORTRIPTYLINE 25 MG CAP PEG (20:48)
[2018-06-30] MEDS: ATORVASTATIN 10 MG TAB PEG (20:48)
[2018-06-30] MEDS: OXYCODONE/ACETAMINOPHEN (5/325) TAB PO (23:48)
[2018-07-01] MEDS: ACCU-CHEK XX ×6 (01:00→21:00)
[2018-07-01] MEDS: INSULIN ASPART [NOVOLOG] 3 ML PEN SC ×6 (02:04→21:00)
[2018-07-01] MEDS: CALCIUM ACETATE 667 MG CAP PEG ×3 (05:43→17:30)
[2018-07-01 06:17] LABS: ADD MAN DIFF? NO
[2018-07-01 06:25] LABS: BASOPHILS % 0.1 % (0.0-2.0); EOSINOPHILS # 0.2 10^3/ul (0.0-0.5); HEMATOCRIT 27.4 % (37.0-47.0); HEMOGLOBIN 8.4 g/dl (12.0-16.0); LYMPHOCYTES # 0.8 10^3/ul (0.8-2.9); MEAN CORPUSCULAR HEMOGLOBIN 28.3 pg (29.0-33.0); MEAN CORPUSCULAR HGB CONC 30.7 g/dl (32.0-37.0); MEAN CORPUSCULAR VOLUME 92.3 fl (82.0-101.0); MEAN PLATELET VOLUME 9.5 fl (7.4-10.4); MONOCYTE # 0.3 10^3/ul (0.3-0.9); NEUTROPHIL # 8.8 10^3/ul (1.6-7.5); NEUTROPHILS % 86.2 % (39.0-77.0); PLATELET COUNT 509 10^3/UL (140-415); RED BLOOD COUNT 2.97 10^6/ul (4.20-5.40); RED CELL DISTRIBUTION WIDTH 17.9 % (11.5-14.5)
[2018-07-01 06:25] LABS: WHITE BLOOD COUNT 10.2 10^3/ul (4.8-10.8)
[2018-07-01 06:53] LABS: ANION GAP 12 (5-13); BLOOD UREA NITROGEN 86 mg/dl (7-20); CALCIUM 9.2 mg/dl (8.4-10.2); CARBON DIOXIDE 29 mmol/L (21-31); CHLORIDE 96 mmol/L (97-110); CREATININE 3.49 mg/dl (0.44-1.00); GLUCOSE 252 mg/dl (70-220); POTASSIUM 4.6 mmol/L (3.5-5.1); SODIUM 137 mmol/L (135-144)
[2018-07-01] MEDS ORDERED: HEPARIN 5,000 UNIT/0.5 ML VIAL ×2 (08:38→20:23)
[2018-07-01] MEDS: INSULIN GLARGINE [LANTus] (100 UNITS/ML) SYG SC (08:53)
[2018-07-01] MEDS ORDERED: LIDOCAINE 2% (MDV) 20 ML INJ (08:57)
[2018-07-01] MEDS: VENLAFAXINE 37.5 MG TAB GTB ×2 (09:57→20:45)
[2018-07-01] MEDS: BUPROPION 75 MG TAB PEG ×2 (09:58→20:32)
[2018-07-01] MEDS: METOPROLOL 100 MG TAB PEG ×2 (09:58→20:32)
[2018-07-01] MEDS: COLLAGENASE 5 GM (UD JAR) TOP (09:58)
[2018-07-01] MEDS: FLUTICASONE 0.05% 16 GM NAS SPRAY NASAL (09:59)
[2018-07-01] MEDS: TIOTROPIUM 18 MCG CAPSULE INHA DEV INH (09:59)
[2018-07-01] MEDS: HEPARIN 5,000 UNIT/1 ML VIAL SC ×2 (10:06→20:44)
[2018-07-01] MEDS: ACETAMINOPHEN 325 MG TAB PO (12:42)
[2018-07-01] MEDS: EPOETIN 10000 UNITS/1 ML INJ (ESRD) SC (17:32)
[2018-07-01] MEDS: ATORVASTATIN 10 MG TAB PEG (20:32)
[2018-07-01] MEDS: NORTRIPTYLINE 25 MG CAP PEG (20:32)
[2018-07-01] MEDS: GABAPENTIN 300 MG CAP PEG (20:32)
[2018-07-01] MEDS: FAMOTIDINE 20 MG TAB PEG (20:32)
[2018-07-01] MEDS: ALBUTEROL/IPRATROPIUM (NEB) 3 ML AMP HHN (23:14)
[2018-07-02] MEDS: CALCIUM ACETATE 667 MG CAP PEG ×5 (00:14→23:26)
[2018-07-02] MEDS: INSULIN GLARGINE [LANTus] (100 UNITS/ML) SYG SC ×3 (00:23→21:37)
[2018-07-02] MEDS: INSULIN ASPART [NOVOLOG] 3 ML PEN SC ×6 (00:23→21:38)
[2018-07-02] MEDS: ACCU-CHEK XX ×6 (00:24→21:00)
[2018-07-02] MEDS: ALBUTEROL/IPRATROPIUM (NEB) 3 ML AMP HHN (01:53)
[2018-07-02] MEDS: COLLAGENASE 5 GM (UD JAR) TOP (09:00)
[2018-07-02] MEDS: METOPROLOL 100 MG TAB PEG ×2 (09:00→21:00)
[2018-07-02] MEDS ORDERED: HEPARIN 5,000 UNIT/0.5 ML VIAL ×2 (09:13→20:24)
[2018-07-02] MEDS: TIOTROPIUM 18 MCG CAPSULE INHA DEV INH (09:22)
[2018-07-02] MEDS: VENLAFAXINE 37.5 MG TAB GTB ×2 (09:23→20:59)
[2018-07-02] MEDS: BUPROPION 75 MG TAB PEG (09:23)
[2018-07-02] MEDS: HEPARIN 5,000 UNIT/1 ML VIAL SC ×2 (09:54→21:38)
[2018-07-02 12:12] LABS: ADD MAN DIFF? NO
[2018-07-02 12:15] LABS: BASOPHILS % 0.2 % (0.0-2.0); EOSINOPHILS # 0.4 10^3/ul (0.0-0.5); EOSINOPHILS % 4.3 % (0.0-7.0); HEMATOCRIT 24.6 % (37.0-47.0); HEMOGLOBIN 7.6 g/dl (12.0-16.0); LYMPHOCYTES # 0.8 10^3/ul (0.8-2.9); LYMPHOCYTES % 9.8 % (15.0-51.0); MEAN CORPUSCULAR HGB CONC 30.9 g/dl (32.0-37.0); MEAN CORPUSCULAR VOLUME 90.8 fl (82.0-101.0); MEAN PLATELET VOLUME 9.8 fl (7.4-10.4); MONOCYTE # 0.2 10^3/ul (0.3-0.9); MONOCYTES % 2.8 % (0.0-11.0); NEUTROPHILS % 82.3 % (39.0-77.0); PLATELET COUNT 589 10^3/UL (140-415); RED BLOOD COUNT 2.71 10^6/ul (4.20-5.40); RED CELL DISTRIBUTION WIDTH 18.6 % (11.5-14.5)
[2018-07-02 12:15] LABS: WHITE BLOOD COUNT 8.5 10^3/ul (4.8-10.8)
[2018-07-02 12:37] LABS: ANION GAP 13 (5-13); BLOOD UREA NITROGEN 118 mg/dl (7-20); CALCIUM 9.5 mg/dl (8.4-10.2); CARBON DIOXIDE 30 mmol/L (21-31); CHLORIDE 92 mmol/L (97-110); CREATININE 4.55 mg/dl (0.44-1.00); GLUCOSE 247 mg/dl (70-220); POTASSIUM 4.5 mmol/L (3.5-5.1); SODIUM 135 mmol/L (135-144)
[2018-07-02 13:06] LABS: HEPATITIS B SURFACE ANTIGEN NEGATIVE (NEGATIVE)
[2018-07-02] MEDS: BUPROPION 100 MG TAB PEG (20:58)
[2018-07-02] MEDS: GABAPENTIN 300 MG CAP PEG (20:59)
[2018-07-02] MEDS: FAMOTIDINE 20 MG TAB PEG (21:00)
[2018-07-02] MEDS: OXYCODONE/ACETAMINOPHEN (5/325) TAB PO (23:26)
[2018-07-03] MEDS: ACCU-CHEK XX ×6 (01:00→21:00)
[2018-07-03] MEDS: INSULIN ASPART [NOVOLOG] 3 ML PEN SC ×6 (01:47→21:00)
[2018-07-03] MEDS: OXYCODONE/ACETAMINOPHEN (5/325) TAB PO ×2 (05:14→23:37)
[2018-07-03] MEDS: CALCIUM ACETATE 667 MG CAP PEG ×4 (06:17→23:37)
[2018-07-03] MEDS: TIOTROPIUM 18 MCG CAPSULE INHA DEV INH (09:00)
[2018-07-03] MEDS ORDERED: HEPARIN 5,000 UNIT/0.5 ML VIAL ×2 (09:19→20:31)
[2018-07-03] MEDS: BUPROPION 100 MG TAB PEG ×2 (09:37→21:15)
[2018-07-03] MEDS: COLLAGENASE 5 GM (UD JAR) TOP (09:40)
[2018-07-03] MEDS: VENLAFAXINE 37.5 MG TAB GTB ×2 (09:42→21:16)
[2018-07-03] MEDS: METOPROLOL 100 MG TAB PEG ×2 (09:42→21:16)
[2018-07-03] MEDS: INSULIN GLARGINE [LANTus] (100 UNITS/ML) SYG SC ×2 (09:54→21:00)
[2018-07-03] MEDS: HEPARIN 5,000 UNIT/1 ML VIAL SC ×2 (09:54→22:35)
[2018-07-03] MEDS: EPOETIN 10000 UNITS/1 ML INJ (ESRD) SC (17:41)
[2018-07-03] MEDS: DEXTROSE 50% 50 ML SYRINGE IV (18:16)
[2018-07-03] MEDS: FAMOTIDINE 20 MG TAB PEG (21:14)
[2018-07-03] MEDS: GABAPENTIN 300 MG CAP PEG (21:16)
[2018-07-03] MEDS: ALBUTEROL/IPRATROPIUM (NEB) 3 ML AMP HHN (22:27)
[2018-07-04] MEDS: INSULIN ASPART [NOVOLOG] 3 ML PEN SC ×7 (01:00→22:22)
[2018-07-04] MEDS: ACCU-CHEK XX ×6 (01:00→22:00)
[2018-07-04] MEDS: ACETAMINOPHEN 325 MG TAB PO (05:30)
[2018-07-04] MEDS: ALBUTEROL/IPRATROPIUM (NEB) 3 ML AMP HHN ×5 (05:44→20:27)
[2018-07-04] MEDS: CALCIUM ACETATE 667 MG CAP PEG ×3 (06:21→17:05)
[2018-07-04 06:25] LABS: HEMATOCRIT 25.8 % (37.0-47.0); HEMOGLOBIN 8.1 g/dl (12.0-16.0); MEAN CORPUSCULAR HEMOGLOBIN 28.5 pg (29.0-33.0); MEAN CORPUSCULAR HGB CONC 31.4 g/dl (32.0-37.0); MEAN CORPUSCULAR VOLUME 90.8 fl (82.0-101.0); MEAN PLATELET VOLUME 9.5 fl (7.4-10.4); PLATELET COUNT 512 10^3/UL (140-415); RED BLOOD COUNT 2.84 10^6/ul (4.20-5.40); RED CELL DISTRIBUTION WIDTH 18.5 % (11.5-14.5)
[2018-07-04 06:25] LABS: WHITE BLOOD COUNT 12.1 10^3/ul (4.8-10.8)
[2018-07-04 06:26] LABS: ADD MAN DIFF? YES; POSITIVE DIFF @See below
[2018-07-04 06:44] LABS: ALANINE AMINOTRANSFERASE 37 IU/L (13-69); ALBUMIN 3.3 g/dl (3.3-4.9); ALBUMIN/GLOBULIN RATIO 0.94; ALKALINE PHOSPHATASE 690 IU/L (42-121); ANION GAP 13 (5-13); ASPARTATE AMINO TRANSFERASE 59 IU/L (15-46); BILIRUBIN,INDIRECT 0.2 mg/dl (0-1.1); BILIRUBIN,TOTAL 0.4 mg/dl (0.2-1.3); BLOOD UREA NITROGEN 48 mg/dl (7-20); CALCIUM 8.9 mg/dl (8.4-10.2); CARBON DIOXIDE 29 mmol/L (21-31); CHLORIDE 91 mmol/L (97-110); CREATININE 2.08 mg/dl (0.44-1.00); GLUCOSE 190 mg/dl (70-220); POTASSIUM 4.3 mmol/L (3.5-5.1); SODIUM 133 mmol/L (135-144); TOTAL PROTEIN 6.8 g/dl (6.1-8.1)
[2018-07-04 06:53] LABS: ANISOCYTOSIS 2+ (0-0); BAND NEUTROPHILS #M 0.2 10^3/ul (0.0-0.6); BAND NEUTROPHILS % (M) 2 % (0-4); EOSINOPHILS % (M) 1 % (0-7); HYPOCHROMASIA 1+ (0-0); LYMPHOCYTES #M 1.2 10^3/ul (0.8-2.9); LYMPHOCYTES % (M) 10 % (15-51); MONOCYTE #M 0.1 10^3/ul (0.3-0.9); MONOCYTES % (M) 1 % (0-11); PLATELET ESTIMATE INCREASED; POLYCHROMASIA 3+ (0-0); SEG NEUT #M 10.4 10^3/ul (1.6-7.5); SEGMENTED NEUTROPHILS (M) % 86 % (39-77)
[2018-07-04] MEDS ORDERED: PIPER-TAZO 2.25 GM (PMX) 50 ML IVPB (07:30)
[2018-07-04] MEDS ORDERED: VANCOMYCIN IV PER PHARMACY XX (07:30)
[2018-07-04] MEDS ORDERED: HEPARIN 5,000 UNIT/0.5 ML VIAL ×2 (09:03→21:53)
[2018-07-04] MEDS: [UNRECOGNIZED DRUG - REMARK] XX (09:13)
[2018-07-04] MEDS: BUPROPION 100 MG TAB PEG ×2 (09:14→22:03)
[2018-07-04] MEDS: HEPARIN 5,000 UNIT/1 ML VIAL SC ×2 (09:15→22:23)
[2018-07-04] MEDS: VENLAFAXINE 37.5 MG TAB GTB ×2 (09:16→22:03)
[2018-07-04] MEDS: METOPROLOL 100 MG TAB PEG ×2 (09:16→22:05)
[2018-07-04] MEDS: TIOTROPIUM 18 MCG CAPSULE INHA DEV INH (09:17)
[2018-07-04] MEDS: COLLAGENASE 5 GM (UD JAR) TOP (09:17)
[2018-07-04] MEDS: INSULIN GLARGINE [LANTus] (100 UNITS/ML) SYG SC ×2 (09:19→22:21)
[2018-07-04] MEDS: VANCOMYCIN 1.25 GM in SOD CHLORIDE 0.9% 250 ML IVPB (09:20)
[2018-07-04] MEDS: LEVOFLOXACIN 250MG/D5W (PMX) 50 ML IVPB (13:50)
[2018-07-04] MEDS: FAMOTIDINE 20 MG TAB PEG (22:03)
[2018-07-04] MEDS: GABAPENTIN 300 MG CAP PEG (22:04)
[2018-07-05] MEDS: ALBUTEROL/IPRATROPIUM (NEB) 3 ML AMP HHN ×6 (00:34→22:36)
[2018-07-05] MEDS: CALCIUM ACETATE 667 MG CAP PEG ×4 (01:17→20:56)
[2018-07-05] MEDS: INSULIN ASPART [NOVOLOG] 3 ML PEN SC ×6 (01:33→21:07)
[2018-07-05] MEDS: ACCU-CHEK XX ×6 (01:34→21:00)
[2018-07-05] MEDS: INSULIN GLARGINE [LANTus] (100 UNITS/ML) SYG SC ×2 (08:10→21:07)
[2018-07-05] MEDS: HYDROCODONE/APAP (5/325) TAB PO (08:36)
[2018-07-05 12:02] LABS: HEPATITIS B SURFACE ANTIGEN NEGATIVE (NEGATIVE)
[2018-07-05] MEDS ORDERED: HEPARIN 5,000 UNIT/0.5 ML VIAL ×2 (13:26→20:47)
[2018-07-05] MEDS: COLLAGENASE 5 GM (UD JAR) TOP (13:35)
[2018-07-05] MEDS: BUPROPION 100 MG TAB PEG ×2 (13:36→20:56)
[2018-07-05] MEDS: TIOTROPIUM 18 MCG CAPSULE INHA DEV INH (13:36)
[2018-07-05] MEDS: VENLAFAXINE 37.5 MG TAB GTB ×2 (13:36→20:56)
[2018-07-05] MEDS: METOPROLOL 100 MG TAB PEG (13:36)
[2018-07-05] MEDS: HEPARIN 5,000 UNIT/1 ML VIAL SC ×2 (13:43→21:07)
[2018-07-05] MEDS: LEVOFLOXACIN 750 MG TABLET PEG (16:29)
[2018-07-05] MEDS: EPOETIN 10000 UNITS/1 ML INJ (ESRD) SC (17:32)
[2018-07-05] MEDS: GABAPENTIN 300 MG CAP PEG (20:57)
[2018-07-05] MEDS: FAMOTIDINE 20 MG TAB PEG (20:57)
[2018-07-05] MEDS: METOPROLOL 50 MG TAB PEG (20:57)
[2018-07-05] MEDS: LORAZEPAM 1 MG TAB GTB (22:44)
[2018-07-06] MEDS: ACCU-CHEK XX ×6 (01:00→21:00)
[2018-07-06] MEDS: INSULIN ASPART [NOVOLOG] 3 ML PEN SC ×6 (01:40→20:45)
[2018-07-06] MEDS: ALBUTEROL/IPRATROPIUM (NEB) 3 ML AMP HHN ×6 (01:52→22:09)
[2018-07-06] MEDS: CALCIUM ACETATE 667 MG CAP PEG ×4 (05:07→18:30)
[2018-07-06 07:36] LABS: VANCOMYCIN,RANDOM 10.9 ug/ml
[2018-07-06] MEDS ORDERED: VANCOMYCIN 1 GM 250 ML IVPB (09:00)
[2018-07-06] MEDS ORDERED: HEPARIN 5,000 UNIT/0.5 ML VIAL ×2 (09:22→20:23)
[2018-07-06] MEDS: HEPARIN 5,000 UNIT/1 ML VIAL SC ×2 (09:35→20:45)
[2018-07-06] MEDS: INSULIN GLARGINE [LANTus] (100 UNITS/ML) SYG SC ×2 (09:35→20:45)
[2018-07-06] MEDS: METOPROLOL 50 MG TAB PEG ×2 (09:42→20:32)
[2018-07-06] MEDS: VANCOMYCIN 1 GM 250 ML IVPB (09:43)
[2018-07-06] MEDS: VENLAFAXINE 37.5 MG TAB GTB ×2 (09:46→21:53)
[2018-07-06] MEDS: LEVOFLOXACIN 250MG/D5W (PMX) 50 ML IVPB (12:25)
[2018-07-06] MEDS: BUPROPION 100 MG TAB PEG ×2 (12:27→20:31)
[2018-07-06] MEDS: TIOTROPIUM 18 MCG CAPSULE INHA DEV INH (12:28)
[2018-07-06] MEDS: COLLAGENASE 5 GM (UD JAR) TOP (17:36)
[2018-07-06] MEDS: GABAPENTIN 300 MG CAP PEG (20:31)
[2018-07-06] MEDS: FAMOTIDINE 20 MG TAB PEG (20:31)
[2018-07-06] MEDS: LORAZEPAM 1 MG TAB GTB (21:53)
[2018-07-07] MEDS: OXYCODONE/ACETAMINOPHEN (5/325) TAB PO ×3 (00:50→22:39)
[2018-07-07] MEDS: CALCIUM ACETATE 667 MG CAP PEG ×2 (00:50→06:07)
[2018-07-07] MEDS: INSULIN ASPART [NOVOLOG] 3 ML PEN SC ×6 (00:51→21:00)
[2018-07-07] MEDS: ACCU-CHEK XX ×6 (00:58→21:49)
[2018-07-07] MEDS: ALBUTEROL/IPRATROPIUM (NEB) 3 ML AMP HHN ×6 (01:45→21:00)
[2018-07-07 07:05] LABS: WHITE BLOOD COUNT 11.4 10^3/ul (4.8-10.8)
[2018-07-07 07:05] LABS: HEMATOCRIT 23.5 % (37.0-47.0); HEMOGLOBIN 7.1 g/dl (12.0-16.0); MEAN CORPUSCULAR HEMOGLOBIN 28.5 pg (29.0-33.0); MEAN CORPUSCULAR HGB CONC 30.2 g/dl (32.0-37.0); MEAN CORPUSCULAR VOLUME 94.4 fl (82.0-101.0); MEAN PLATELET VOLUME 9.4 fl (7.4-10.4); PLATELET COUNT 646 10^3/UL (140-415); RED BLOOD COUNT 2.49 10^6/ul (4.20-5.40)
[2018-07-07 07:11] LABS: ADD MAN DIFF? YES; POSITIVE DIFF @See below
[2018-07-07 07:43] LABS: ANION GAP 15 (5-13); BLOOD UREA NITROGEN 99 mg/dl (7-20); CALCIUM 9.2 mg/dl (8.4-10.2); CARBON DIOXIDE 27 mmol/L (21-31); CHLORIDE 95 mmol/L (97-110); CREATININE 3.22 mg/dl (0.44-1.00); GLUCOSE 217 mg/dl (70-220); POTASSIUM 4.5 mmol/L (3.5-5.1); SODIUM 137 mmol/L (135-144)
[2018-07-07 08:02] LABS: PHOSPHORUS 0.6 mg/dl (2.5-4.9)
[2018-07-07] MEDS: HEPARIN 5,000 UNIT/1 ML VIAL SC ×2 (09:00→21:00)
[2018-07-07] MEDS: COLLAGENASE 5 GM (UD JAR) TOP (09:01)
[2018-07-07] MEDS: BUPROPION 100 MG TAB PEG ×2 (09:02→22:39)
[2018-07-07] MEDS: TIOTROPIUM 18 MCG CAPSULE INHA DEV INH (09:03)
[2018-07-07] MEDS: VENLAFAXINE 37.5 MG TAB GTB ×2 (09:03→21:48)
[2018-07-07 09:08] LABS: ANISOCYTOSIS 1+ (0-0); BAND NEUTROPHILS #M 1.3 10^3/ul (0.0-0.6); BAND NEUTROPHILS % (M) 12 % (0-4); EOSINOPHILS % (M) 2 % (0-7); HYPOCHROMASIA 2+ (0-0); LYMPHOCYTES #M 0.7 10^3/ul (0.8-2.9); LYMPHOCYTES % (M) 7 % (15-51); METAMYELOCYTES #M 0.1 10^3/ul (0.0-0.0); METAMYELOCYTES %M 1 % (0-0); MYELOCYTES #M 0.1 10^3/ul (0.0-0.0); MYELOCYTES % (M) 1 % (0-0); PLATELET ESTIMATE INCREASED; POIKILOCYTOSIS 1+ (0-0); POLYCHROMASIA 3+ (0-0); PROMYELOCYTES #M 0.1 10^3/ul (0-0); PROMYELOCYTES % (M) 1 % (0-0); SEG NEUT #M 8.8 10^3/ul (1.6-7.5); SEGMENTED NEUTROPHILS (M) % 76 % (39-77); SMUDGE%M 6 % (0-0); TARGET CELLS 1+ (0-0)
[2018-07-07] MEDS: INSULIN GLARGINE [LANTus] (100 UNITS/ML) SYG SC ×2 (09:18→21:52)
[2018-07-07] MEDS: METOPROLOL 50 MG TAB PEG ×2 (09:19→21:48)
[2018-07-07 12:26] LABS: AADO2 Arterial 57.4 mmHg (7.0-24.0); Allen Test ACCEPTAB; Arterial Base Excess 5.1 mmol/L (-3.0-3); Arterial Blood Gas Oxygen Sat 98.5 mmHG (95.0-100.0); Arterial COHb 1.3 % (0.0-3.0); Arterial Fraction of Oxyhgb 96.8 % (93.0-99.0); Arterial HCO3 29.5 mmol/L (22.0-26.0); Arterial MetHb 0.4 % (0.0-1.5); Arterial Total Hemglobin 7.4 g/dl (12.0-18.0); MODE NASAL CANNULA; Site Right Radial
[2018-07-07] MEDS: SODIUM PHOSPHATE 30 MMOL in SOD CHLORIDE 0.9% 250 ML IVPB ×2 (13:44→22:40)
[2018-07-07 17:31] LABS: IMMEDIATE SPIN CROSSMATCH 1 1
[2018-07-07] MEDS: ACETAMINOPHEN 325 MG TAB PO (17:45)
[2018-07-07 20:09] LABS: PHOSPHORUS 1.2 mg/dl (2.5-4.9)
[2018-07-07] MEDS: FAMOTIDINE 20 MG TAB PEG (21:48)
[2018-07-07] MEDS: GABAPENTIN 300 MG CAP PEG (21:57)
[2018-07-08] MEDS: INSULIN ASPART [NOVOLOG] 3 ML PEN SC ×6 (00:28→20:41)
[2018-07-08] MEDS: ACCU-CHEK XX ×6 (00:28→20:41)
[2018-07-08] MEDS: ALBUTEROL/IPRATROPIUM (NEB) 3 ML AMP HHN ×7 (01:00→21:27)
[2018-07-08] MEDS: LORAZEPAM 1 MG TAB GTB (01:56)
[2018-07-08 06:47] LABS: ADD MAN DIFF? NO
[2018-07-08 06:49] LABS: BASOPHILS % 0.3 % (0.0-2.0); EOSINOPHILS # 0.3 10^3/ul (0.0-0.5); EOSINOPHILS % 2.8 % (0.0-7.0); HEMATOCRIT 26.7 % (37.0-47.0); HEMOGLOBIN 8.4 g/dl (12.0-16.0); LYMPHOCYTES # 0.8 10^3/ul (0.8-2.9); MEAN CORPUSCULAR HEMOGLOBIN 28.3 pg (29.0-33.0); MEAN CORPUSCULAR HGB CONC 31.5 g/dl (32.0-37.0); MEAN CORPUSCULAR VOLUME 89.9 fl (82.0-101.0); MEAN PLATELET VOLUME 9.1 fl (7.4-10.4); MONOCYTE # 0.4 10^3/ul (0.3-0.9); MONOCYTES % 3.6 % (0.0-11.0); NEUTROPHIL # 9.9 10^3/ul (1.6-7.5); NEUTROPHILS % 84.5 % (39.0-77.0); PLATELET COUNT 572 10^3/UL (140-415); RED BLOOD COUNT 2.97 10^6/ul (4.20-5.40); RED CELL DISTRIBUTION WIDTH 19.8 % (11.5-14.5)
[2018-07-08 06:49] LABS: WHITE BLOOD COUNT 11.7 10^3/ul (4.8-10.8)
[2018-07-08 07:11] LABS: ANION GAP 13 (5-13); BLOOD UREA NITROGEN 52 mg/dl (7-20); CARBON DIOXIDE 28 mmol/L (21-31); CHLORIDE 100 mmol/L (97-110); CREATININE 2.09 mg/dl (0.44-1.00); GLUCOSE 152 mg/dl (70-220); MAGNESIUM 2.2 mg/dl (1.7-2.5); POTASSIUM 3.5 mmol/L (3.5-5.1); SODIUM 141 mmol/L (135-144)
[2018-07-08 07:12] LABS: VANCOMYCIN,RANDOM 14.6 ug/ml
[2018-07-08] MEDS ORDERED: HEPARIN 5,000 UNIT/0.5 ML VIAL ×2 (08:43→19:53)
[2018-07-08] MEDS: HEPARIN 5,000 UNIT/1 ML VIAL SC ×2 (09:00→20:27)
[2018-07-08] MEDS: COLLAGENASE 5 GM (UD JAR) TOP (09:03)
[2018-07-08] MEDS: METOPROLOL 50 MG TAB PEG ×2 (09:04→20:23)
[2018-07-08] MEDS: TIOTROPIUM 18 MCG CAPSULE INHA DEV INH (09:04)
[2018-07-08] MEDS: BUPROPION 100 MG TAB PEG ×2 (09:05→20:33)
[2018-07-08] MEDS: VENLAFAXINE 37.5 MG TAB GTB ×2 (09:05→20:22)
[2018-07-08] MEDS: INSULIN GLARGINE [LANTus] (100 UNITS/ML) SYG SC (09:12)
[2018-07-08] MEDS: ACETAMINOPHEN 325 MG TAB PO (09:40)
[2018-07-08] MEDS: LEVOFLOXACIN 250MG/D5W (PMX) 50 ML IVPB (11:58)
[2018-07-08] MEDS ORDERED: CEFOTAXIME 2 GM IM (14:00)
[2018-07-08] MEDS: CEFTRIAXONE 2 GM INJ IM (15:00)
[2018-07-08] MEDS: DEXTROSE 50% 50 ML SYRINGE IV ×2 (18:05→22:34)
[2018-07-08] MEDS: CEFTRIAXONE 2 GM/NS 50 ML IVPB (18:11)
[2018-07-08] MEDS: EPOETIN 10000 UNITS/1 ML INJ (ESRD) SC (18:13)
[2018-07-08] MEDS: VANCOMYCIN 1 GM 250 ML IVPB (20:20)
[2018-07-08] MEDS: GABAPENTIN 300 MG CAP PEG (20:22)
[2018-07-08] MEDS: FAMOTIDINE 20 MG TAB PEG (20:23)
[2018-07-08] MEDS ORDERED: INSULIN GLARGINE [LANTus] (100 UNITS/ML) SYG SC (21:00)
[2018-07-09] MEDS: LORAZEPAM 1 MG TAB GTB (00:31)
[2018-07-09] MEDS: INSULIN ASPART [NOVOLOG] 3 ML PEN SC ×5 (01:00→17:26)
[2018-07-09] MEDS: ACCU-CHEK XX ×5 (01:00→17:22)
[2018-07-09] MEDS: ALBUTEROL/IPRATROPIUM (NEB) 3 ML AMP HHN ×6 (01:30→20:01)
[2018-07-09] MEDS: OXYCODONE/ACETAMINOPHEN (5/325) TAB PO ×3 (03:23→17:02)
[2018-07-09 07:11] LABS: ADD MAN DIFF? NO
[2018-07-09 07:21] LABS: BASOPHILS % 0.2 % (0.0-2.0); EOSINOPHILS # 0.3 10^3/ul (0.0-0.5); EOSINOPHILS % 1.8 % (0.0-7.0); HEMATOCRIT 25.2 % (37.0-47.0); HEMOGLOBIN 8.2 g/dl (12.0-16.0); LYMPHOCYTES # 0.9 10^3/ul (0.8-2.9); LYMPHOCYTES % 6.1 % (15.0-51.0); MEAN CORPUSCULAR HEMOGLOBIN 28.4 pg (29.0-33.0); MEAN CORPUSCULAR HGB CONC 32.5 g/dl (32.0-37.0); MEAN CORPUSCULAR VOLUME 87.2 fl (82.0-101.0); MEAN PLATELET VOLUME 9.1 fl (7.4-10.4); MONOCYTE # 0.4 10^3/ul (0.3-0.9); MONOCYTES % 2.8 % (0.0-11.0); NEUTROPHIL # 12.6 10^3/ul (1.6-7.5); NEUTROPHILS % 87.6 % (39.0-77.0); PLATELET COUNT 587 10^3/UL (140-415); RED BLOOD COUNT 2.89 10^6/ul (4.20-5.40); RED CELL DISTRIBUTION WIDTH 20.1 % (11.5-14.5)
[2018-07-09 07:21] LABS: WHITE BLOOD COUNT 14.4 10^3/ul (4.8-10.8)
[2018-07-09 07:41] LABS: ANION GAP 13 (5-13); BLOOD UREA NITROGEN 87 mg/dl (7-20); CALCIUM 7.6 mg/dl (8.4-10.2); CARBON DIOXIDE 27 mmol/L (21-31); CHLORIDE 99 mmol/L (97-110); CREATININE 2.93 mg/dl (0.44-1.00); GLUCOSE 184 mg/dl (70-220); PHOSPHORUS 3.5 mg/dl (2.5-4.9); POTASSIUM 3.9 mmol/L (3.5-5.1); SODIUM 139 mmol/L (135-144)
[2018-07-09] MEDS ORDERED: HEPARIN 5,000 UNIT/0.5 ML VIAL ×2 (08:17→20:49)
[2018-07-09] MEDS ORDERED: CEFTRIAXONE 2 GM INJ IVPB (09:00)
[2018-07-09] MEDS: VENLAFAXINE 37.5 MG TAB GTB ×2 (09:09→21:58)
[2018-07-09] MEDS: BUPROPION 100 MG TAB PEG ×2 (09:10→21:57)
[2018-07-09] MEDS: HEPARIN 5,000 UNIT/1 ML VIAL SC ×2 (09:11→21:28)
[2018-07-09] MEDS: METOPROLOL 50 MG TAB PEG ×2 (15:23→21:58)
[2018-07-09] MEDS: TIOTROPIUM 18 MCG CAPSULE INHA DEV INH (15:23)
[2018-07-09] MEDS: COLLAGENASE 5 GM (UD JAR) TOP (15:25)
[2018-07-09] MEDS: CEFTRIAXONE 2 GM/NS 50 ML IVPB (18:42)
[2018-07-09] MEDS: GABAPENTIN 300 MG CAP PEG (21:57)
[2018-07-09] MEDS: VALACYCLOVIR 500 MG TAB PO (21:57)
[2018-07-09] MEDS: FAMOTIDINE 20 MG TAB PEG (21:58)
[2018-07-10] MEDS: LORAZEPAM 1 MG TAB GTB (00:47)
[2018-07-10] MEDS: ALBUTEROL/IPRATROPIUM (NEB) 3 ML AMP HHN ×6 (01:38→21:37)
[2018-07-10] MEDS: OXYCODONE/ACETAMINOPHEN (5/325) TAB PO ×2 (02:49→23:02)
[2018-07-10] MEDS: INSULIN ASPART [NOVOLOG] 3 ML PEN SC ×4 (06:00→17:53)
[2018-07-10] MEDS: ACCU-CHEK XX ×4 (06:00→18:17)
[2018-07-10] MEDS: DOCUSATE SODIUM 10 MG/ML (10ML CUP) GTB (06:24)
[2018-07-10 07:35] LABS: ADD MAN DIFF? NO
[2018-07-10 07:45] LABS: WHITE BLOOD COUNT 13.8 10^3/ul (4.8-10.8)
[2018-07-10 07:45] LABS: BASOPHIL # 0.1 10^3/ul (0.0-0.1); BASOPHILS % 0.4 % (0.0-2.0); EOSINOPHILS # 0.3 10^3/ul (0.0-0.5); HEMATOCRIT 26.2 % (37.0-47.0); HEMOGLOBIN 8.5 g/dl (12.0-16.0); LYMPHOCYTES # 0.8 10^3/ul (0.8-2.9); MEAN CORPUSCULAR HEMOGLOBIN 28.6 pg (29.0-33.0); MEAN CORPUSCULAR HGB CONC 32.4 g/dl (32.0-37.0); MEAN CORPUSCULAR VOLUME 88.2 fl (82.0-101.0); MEAN PLATELET VOLUME 9.3 fl (7.4-10.4); MONOCYTE # 0.4 10^3/ul (0.3-0.9); MONOCYTES % 2.8 % (0.0-11.0); NEUTROPHIL # 12.1 10^3/ul (1.6-7.5); NEUTROPHILS % 87.8 % (39.0-77.0); PLATELET COUNT 610 10^3/UL (140-415); RED BLOOD COUNT 2.97 10^6/ul (4.20-5.40); RED CELL DISTRIBUTION WIDTH 20.8 % (11.5-14.5)
[2018-07-10 08:08] LABS: ANION GAP 11 (5-13); BLOOD UREA NITROGEN 63 mg/dl (7-20); CALCIUM 7.8 mg/dl (8.4-10.2); CARBON DIOXIDE 29 mmol/L (21-31); CHLORIDE 100 mmol/L (97-110); CREATININE 2.15 mg/dl (0.44-1.00); GLUCOSE 125 mg/dl (70-220); PHOSPHORUS 3.1 mg/dl (2.5-4.9); POTASSIUM 4.3 mmol/L (3.5-5.1); SODIUM 140 mmol/L (135-144)
[2018-07-10] MEDS ORDERED: HEPARIN 5,000 UNIT/0.5 ML VIAL ×2 (08:12→22:12)
[2018-07-10] MEDS: VENLAFAXINE 37.5 MG TAB GTB ×2 (08:22→22:21)
[2018-07-10] MEDS: TIOTROPIUM 18 MCG CAPSULE INHA DEV INH (08:23)
[2018-07-10] MEDS: METOPROLOL 50 MG TAB PEG ×2 (08:25→21:00)
[2018-07-10] MEDS: VALACYCLOVIR 500 MG TAB PO ×2 (08:26→22:21)
[2018-07-10] MEDS: BUPROPION 100 MG TAB PEG ×2 (08:26→22:21)
[2018-07-10] MEDS: HEPARIN 5,000 UNIT/1 ML VIAL SC ×2 (08:28→22:23)
[2018-07-10] MEDS: COLLAGENASE 5 GM (UD JAR) TOP (09:02)
[2018-07-10] MEDS: LEVOFLOXACIN 250MG/D5W (PMX) 50 ML IVPB (11:47)
[2018-07-10] MEDS: CEFTRIAXONE 2 GM/NS 50 ML IVPB (18:17)
[2018-07-10] MEDS: EPOETIN 10000 UNITS/1 ML INJ (ESRD) SC (18:19)
[2018-07-10] MEDS: CYANOCOBALAMIN 1000 MCG INJ SC (21:05)
[2018-07-10] MEDS: CYANOCOBALAMIN 1000 MCG INJ IM (21:10)
[2018-07-10] MEDS: FAMOTIDINE 20 MG TAB PEG (22:21)
[2018-07-10] MEDS: GABAPENTIN 300 MG CAP PEG (22:21)
[2018-07-10] MEDS: INSULIN GLARGINE [LANTus] (100 UNITS/ML) SYG SC (22:25)
[2018-07-11] MEDS: INSULIN ASPART [NOVOLOG] 3 ML PEN SC ×4 (00:45→18:20)
[2018-07-11] MEDS: ALBUTEROL/IPRATROPIUM (NEB) 3 ML AMP HHN ×6 (01:30→21:00)
[2018-07-11 05:59] LABS: ADD MAN DIFF? NO
[2018-07-11] MEDS: ACCU-CHEK XX ×4 (06:00→18:21)
[2018-07-11 06:25] LABS: BASOPHILS % 0.3 % (0.0-2.0); EOSINOPHILS # 0.3 10^3/ul (0.0-0.5); EOSINOPHILS % 2.7 % (0.0-7.0); HEMATOCRIT 24.7 % (37.0-47.0); HEMOGLOBIN 7.9 g/dl (12.0-16.0); LYMPHOCYTES # 0.9 10^3/ul (0.8-2.9); LYMPHOCYTES % 7.7 % (15.0-51.0); MEAN CORPUSCULAR HEMOGLOBIN 28.3 pg (29.0-33.0); MEAN CORPUSCULAR VOLUME 88.5 fl (82.0-101.0); MEAN PLATELET VOLUME 9.4 fl (7.4-10.4); MONOCYTE # 0.3 10^3/ul (0.3-0.9); MONOCYTES % 2.5 % (0.0-11.0); NEUTROPHIL # 10.2 10^3/ul (1.6-7.5); NEUTROPHILS % 85.6 % (39.0-77.0); PLATELET COUNT 594 10^3/UL (140-415); RED BLOOD COUNT 2.79 10^6/ul (4.20-5.40); RED CELL DISTRIBUTION WIDTH 20.8 % (11.5-14.5)
[2018-07-11 06:25] LABS: WHITE BLOOD COUNT 11.9 10^3/ul (4.8-10.8)
[2018-07-11 07:16] LABS: ANION GAP 15 (5-13); BLOOD UREA NITROGEN 94 mg/dl (7-20); CALCIUM 8.1 mg/dl (8.4-10.2); CARBON DIOXIDE 24 mmol/L (21-31); CHLORIDE 99 mmol/L (97-110); CREATININE 3.08 mg/dl (0.44-1.00); GLUCOSE 224 mg/dl (70-220); POTASSIUM 4.3 mmol/L (3.5-5.1); SODIUM 138 mmol/L (135-144)
[2018-07-11] MEDS ORDERED: HEPARIN 5,000 UNIT/0.5 ML VIAL ×2 (08:27→20:46)
[2018-07-11] MEDS: METOPROLOL 50 MG TAB PEG ×2 (09:00→20:54)
[2018-07-11] MEDS: BUPROPION 100 MG TAB PEG ×2 (09:00→20:58)
[2018-07-11] MEDS: VALACYCLOVIR 500 MG TAB PO (09:11)
[2018-07-11] MEDS: TIOTROPIUM 18 MCG CAPSULE INHA DEV INH (09:12)
[2018-07-11] MEDS: VENLAFAXINE 37.5 MG TAB GTB ×2 (09:12→20:54)
[2018-07-11] MEDS: HEPARIN 5,000 UNIT/1 ML VIAL SC ×2 (09:19→20:57)
[2018-07-11] MEDS: INSULIN GLARGINE [LANTus] (100 UNITS/ML) SYG SC ×2 (09:21→20:57)
[2018-07-11] MEDS: COLLAGENASE 5 GM (UD JAR) TOP (09:22)
[2018-07-11] MEDS: SODIUM HYPOCHLORITE (1/40) 1 APPLIC BTL IRR (09:23)
[2018-07-11] MEDS: ACETAMINOPHEN 325 MG TAB PO (11:19)
[2018-07-11] MEDS: CEFTRIAXONE 2 GM/NS 50 ML IVPB (18:21)
[2018-07-11] MEDS: VANCOMYCIN 1 GM 250 ML IVPB (20:09)
[2018-07-11] MEDS: GABAPENTIN 300 MG CAP PEG (20:53)
[2018-07-11] MEDS: FAMOTIDINE 20 MG TAB PEG (20:54)
[2018-07-12] MEDS: ACETAMINOPHEN 325 MG TAB PO (00:08)
[2018-07-12] MEDS: ACCU-CHEK XX ×5 (00:09→23:52)
[2018-07-12] MEDS: ALBUTEROL/IPRATROPIUM (NEB) 3 ML AMP HHN ×6 (00:32→20:24)
[2018-07-12] MEDS: INSULIN ASPART [NOVOLOG] 3 ML PEN SC ×5 (05:21→23:52)
[2018-07-12] MEDS ORDERED: HEPARIN 5,000 UNIT/0.5 ML VIAL ×2 (08:56→20:47)
[2018-07-12] MEDS: METOPROLOL 50 MG TAB PEG ×2 (09:06→20:54)
[2018-07-12] MEDS: VENLAFAXINE 37.5 MG TAB GTB ×2 (09:06→20:14)
[2018-07-12] MEDS: TIOTROPIUM 18 MCG CAPSULE INHA DEV INH (09:07)
[2018-07-12] MEDS: HEPARIN 5,000 UNIT/1 ML VIAL SC ×2 (09:13→20:58)
[2018-07-12] MEDS: SODIUM HYPOCHLORITE (1/40) 1 APPLIC BTL IRR (09:24)
[2018-07-12] MEDS: COLLAGENASE 5 GM (UD JAR) TOP (09:24)
[2018-07-12] MEDS: BUPROPION 100 MG TAB PEG ×2 (09:24→20:14)
[2018-07-12] MEDS: LEVOTHYROXINE 75 MCG TAB PEG (11:02)
[2018-07-12] MEDS: INSULIN GLARGINE [LANTus] (100 UNITS/ML) SYG SC (11:08)
[2018-07-12] MEDS: DEXTROSE 50% 50 ML SYRINGE IV ×2 (12:54→19:10)
[2018-07-12] MEDS: CEFTRIAXONE 2 GM/NS 50 ML IVPB (19:10)
[2018-07-12] MEDS: EPOETIN 10000 UNITS/1 ML INJ (ESRD) SC (19:12)
[2018-07-12] MEDS: FAMOTIDINE 20 MG TAB PEG (20:53)
[2018-07-13] MEDS: ALBUTEROL/IPRATROPIUM (NEB) 3 ML AMP HHN ×6 (00:52→20:00)
[2018-07-13] MEDS: ACETAMINOPHEN 325 MG TAB PO ×2 (02:42→17:42)
[2018-07-13] MEDS: LEVOTHYROXINE 75 MCG TAB GTB (05:48)
[2018-07-13] MEDS: ACCU-CHEK XX ×4 (05:51→23:50)
[2018-07-13] MEDS: INSULIN ASPART [NOVOLOG] 3 ML PEN SC ×4 (05:51→23:50)
[2018-07-13 07:15] LABS: ADD MAN DIFF? NO
[2018-07-13 07:24] LABS: WHITE BLOOD COUNT 12.9 10^3/ul (4.8-10.8)
[2018-07-13 07:24] LABS: BASOPHILS % 0.3 % (0.0-2.0); EOSINOPHILS # 0.5 10^3/ul (0.0-0.5); HEMOGLOBIN 7.9 g/dl (12.0-16.0); LYMPHOCYTES # 1.1 10^3/ul (0.8-2.9); LYMPHOCYTES % 8.6 % (15.0-51.0); MEAN CORPUSCULAR HEMOGLOBIN 28.6 pg (29.0-33.0); MEAN CORPUSCULAR HGB CONC 31.6 g/dl (32.0-37.0); MEAN CORPUSCULAR VOLUME 90.6 fl (82.0-101.0); MEAN PLATELET VOLUME 9.3 fl (7.4-10.4); MONOCYTE # 0.5 10^3/ul (0.3-0.9); MONOCYTES % 3.5 % (0.0-11.0); NEUTROPHIL # 10.5 10^3/ul (1.6-7.5); NEUTROPHILS % 81.7 % (39.0-77.0); NUCLEATED RED BLOOD CELLS% 0.2 /100WBC (0.0-0.0); PLATELET COUNT 673 10^3/UL (140-415); RED BLOOD COUNT 2.76 10^6/ul (4.20-5.40); RED CELL DISTRIBUTION WIDTH 20.6 % (11.5-14.5)
[2018-07-13 07:34] LABS: ANION GAP 15 (5-13); BLOOD UREA NITROGEN 90 mg/dl (7-20); CALCIUM 8.9 mg/dl (8.4-10.2); CARBON DIOXIDE 26 mmol/L (21-31); CHLORIDE 98 mmol/L (97-110); CREATININE 2.83 mg/dl (0.44-1.00); GLUCOSE 260 mg/dl (70-220); PHOSPHORUS 5.5 mg/dl (2.5-4.9); POTASSIUM 4.3 mmol/L (3.5-5.1); SODIUM 139 mmol/L (135-144)
[2018-07-13] MEDS ORDERED: HEPARIN 5,000 UNIT/0.5 ML VIAL ×2 (08:21→21:35)
[2018-07-13] MEDS: COLLAGENASE 5 GM (UD JAR) TOP (08:24)
[2018-07-13] MEDS: SODIUM HYPOCHLORITE (1/40) 1 APPLIC BTL IRR (08:24)
[2018-07-13] MEDS: METOPROLOL 50 MG TAB PEG ×2 (08:25→21:53)
[2018-07-13] MEDS: VENLAFAXINE 37.5 MG TAB GTB ×2 (08:26→21:48)
[2018-07-13] MEDS: BUPROPION 100 MG TAB PEG ×2 (08:26→21:53)
[2018-07-13] MEDS: TIOTROPIUM 18 MCG CAPSULE INHA DEV INH (08:26)
[2018-07-13] MEDS: HEPARIN 5,000 UNIT/1 ML VIAL SC ×2 (08:28→21:57)
[2018-07-13] MEDS: INSULIN GLARGINE [LANTus] (100 UNITS/ML) SYG SC (08:33)
[2018-07-13] MEDS: hydrALAzine 20 MG INJ IV ×2 (15:09→23:25)
[2018-07-13] MEDS: FAMOTIDINE 20 MG TAB PEG (21:48)
[2018-07-13] MEDS: NPH, HUMAN INSULIN ISOPHANE 3ML VIAL SC (21:58)
[2018-07-14 01:48] LABS: LACTIC ACID 2.2 mmol/L (0.5-2.0)
[2018-07-14] MEDS: AMLODIPINE 10 MG TAB GTB (02:33)
[2018-07-14] MEDS: ALBUTEROL/IPRATROPIUM (NEB) 3 ML AMP HHN ×6 (04:33→20:20)
[2018-07-14] MEDS: LEVOTHYROXINE 75 MCG TAB GTB (05:50)
[2018-07-14] MEDS: hydrALAzine 20 MG INJ IV (06:00)
[2018-07-14] MEDS: INSULIN ASPART [NOVOLOG] 3 ML PEN SC ×3 (06:03→17:09)
[2018-07-14] MEDS: ACCU-CHEK XX ×3 (06:11→17:06)
[2018-07-14] MEDS: NPH, HUMAN INSULIN ISOPHANE 3ML VIAL SC ×3 (06:53→23:59)
[2018-07-14] MEDS ORDERED: HEPARIN 5,000 UNIT/0.5 ML VIAL ×2 (09:47→21:35)
[2018-07-14] MEDS: TIOTROPIUM 18 MCG CAPSULE INHA DEV INH (09:50)
[2018-07-14] MEDS: VENLAFAXINE 37.5 MG TAB GTB ×2 (09:50→21:29)
[2018-07-14] MEDS: COLLAGENASE 5 GM (UD JAR) TOP (09:50)
[2018-07-14] MEDS: BUPROPION 100 MG TAB PEG ×2 (09:51→21:30)
[2018-07-14] MEDS: SODIUM HYPOCHLORITE (1/40) 1 APPLIC BTL IRR (09:52)
[2018-07-14] MEDS: HEPARIN 5,000 UNIT/1 ML VIAL SC ×2 (10:08→21:42)
[2018-07-14] MEDS: METOPROLOL 50 MG TAB PEG (10:15)
[2018-07-14 12:03] LABS: ADD MAN DIFF? NO
[2018-07-14 12:18] LABS: BASOPHIL # 0.1 10^3/ul (0.0-0.1); BASOPHILS % 0.3 % (0.0-2.0); EOSINOPHILS # 0.4 10^3/ul (0.0-0.5); EOSINOPHILS % 2.6 % (0.0-7.0); HEMATOCRIT 27.6 % (37.0-47.0); HEMOGLOBIN 8.6 g/dl (12.0-16.0); LYMPHOCYTES # 1.2 10^3/ul (0.8-2.9); LYMPHOCYTES % 7.7 % (15.0-51.0); MEAN CORPUSCULAR HEMOGLOBIN 28.5 pg (29.0-33.0); MEAN CORPUSCULAR HGB CONC 31.2 g/dl (32.0-37.0); MEAN CORPUSCULAR VOLUME 91.4 fl (82.0-101.0); MEAN PLATELET VOLUME 9.2 fl (7.4-10.4); MONOCYTE # 0.5 10^3/ul (0.3-0.9); MONOCYTES % 3.4 % (0.0-11.0); NEUTROPHIL # 12.6 10^3/ul (1.6-7.5); NEUTROPHILS % 84.5 % (39.0-77.0); NUCLEATED RED BLOOD CELLS% 0.2 /100WBC (0.0-0.0); PLATELET COUNT 704 10^3/UL (140-415); RED BLOOD COUNT 3.02 10^6/ul (4.20-5.40); RED CELL DISTRIBUTION WIDTH 20.6 % (11.5-14.5)
[2018-07-14 12:18] LABS: WHITE BLOOD COUNT 14.9 10^3/ul (4.8-10.8)
[2018-07-14 12:40] LABS: ANION GAP 12 (5-13); BLOOD UREA NITROGEN 44 mg/dl (7-20); CARBON DIOXIDE 28 mmol/L (21-31); CHLORIDE 99 mmol/L (97-110); CREATININE 1.42 mg/dl (0.44-1.00); GLUCOSE 256 mg/dl (70-220); POTASSIUM 3.9 mmol/L (3.5-5.1); SODIUM 139 mmol/L (135-144)
[2018-07-14 15:12] LABS: MAGNESIUM 2.2 mg/dl (1.7-2.5)
[2018-07-14] MEDS: METOPROLOL 100 MG TAB PEG (21:30)
[2018-07-14] MEDS: FAMOTIDINE 20 MG TAB PEG (21:30)
[2018-07-14] MEDS: ZOLPIDEM 5 MG TAB PO (21:31)
[2018-07-14] MEDS: ACETAMINOPHEN 325 MG TAB PO (21:31)
[2018-07-15] MEDS: ACCU-CHEK XX ×4 (00:20→16:52)
[2018-07-15] MEDS: ALBUTEROL/IPRATROPIUM (NEB) 3 ML AMP HHN ×6 (01:36→20:03)
[2018-07-15 05:08] LABS: ADD MAN DIFF? NO
[2018-07-15 05:14] LABS: BASOPHIL # 0.1 10^3/ul (0.0-0.1); BASOPHILS % 0.6 % (0.0-2.0); EOSINOPHILS # 0.2 10^3/ul (0.0-0.5); EOSINOPHILS % 1.4 % (0.0-7.0); HEMATOCRIT 28.7 % (37.0-47.0); HEMOGLOBIN 8.9 g/dl (12.0-16.0); LYMPHOCYTES # 1.4 10^3/ul (0.8-2.9); LYMPHOCYTES % 9.9 % (15.0-51.0); MEAN CORPUSCULAR HEMOGLOBIN 28.8 pg (29.0-33.0); MEAN CORPUSCULAR VOLUME 92.9 fl (82.0-101.0); MEAN PLATELET VOLUME 9.5 fl (7.4-10.4); MONOCYTE # 0.7 10^3/ul (0.3-0.9); NEUTROPHIL # 11.3 10^3/ul (1.6-7.5); NEUTROPHILS % 81.5 % (39.0-77.0); NUCLEATED RED BLOOD CELLS% 0.3 /100WBC (0.0-0.0); PLATELET COUNT 748 10^3/UL (140-415); RED BLOOD COUNT 3.09 10^6/ul (4.20-5.40); RED CELL DISTRIBUTION WIDTH 21.5 % (11.5-14.5)
[2018-07-15 05:14] LABS: WHITE BLOOD COUNT 13.9 10^3/ul (4.8-10.8)
[2018-07-15] MEDS: NPH, HUMAN INSULIN ISOPHANE 3ML VIAL SC ×4 (05:31→21:57)
[2018-07-15] MEDS: INSULIN ASPART [NOVOLOG] 3 ML PEN SC ×4 (05:32→16:51)
[2018-07-15] MEDS: LEVOTHYROXINE 75 MCG TAB GTB (05:33)
[2018-07-15] MEDS: ACETAMINOPHEN 325 MG TAB PO (05:33)
[2018-07-15 05:42] LABS: ALANINE AMINOTRANSFERASE 31 IU/L (13-69); ALBUMIN 3.1 g/dl (3.3-4.9); ALBUMIN/GLOBULIN RATIO 0.75; ALKALINE PHOSPHATASE 670 IU/L (42-121); ANION GAP 9 (5-13); ASPARTATE AMINO TRANSFERASE 46 IU/L (15-46); BILIRUBIN,INDIRECT 0.1 mg/dl (0-1.1); BILIRUBIN,TOTAL 0.1 mg/dl (0.2-1.3); BLOOD UREA NITROGEN 60 mg/dl (7-20); CALCIUM 9.1 mg/dl (8.4-10.2); CARBON DIOXIDE 30 mmol/L (21-31); CHLORIDE 101 mmol/L (97-110); CREATININE 1.93 mg/dl (0.44-1.00); GLUCOSE 335 mg/dl (70-220); POTASSIUM 4.3 mmol/L (3.5-5.1); SODIUM 140 mmol/L (135-144); TOTAL PROTEIN 7.2 g/dl (6.1-8.1)
[2018-07-15] MEDS: TIOTROPIUM 18 MCG CAPSULE INHA DEV INH (08:55)
[2018-07-15] MEDS: SODIUM HYPOCHLORITE (1/40) 1 APPLIC BTL IRR (08:56)
[2018-07-15] MEDS: COLLAGENASE 5 GM (UD JAR) TOP (08:56)
[2018-07-15] MEDS ORDERED: HEPARIN 5,000 UNIT/0.5 ML VIAL ×2 (09:12→21:41)
[2018-07-15] MEDS: VENLAFAXINE 37.5 MG TAB GTB ×2 (09:38→21:45)
[2018-07-15] MEDS: DOCUSATE SODIUM 10 MG/ML (10ML CUP) GTB (09:38)
[2018-07-15] MEDS: METOPROLOL 100 MG TAB PEG ×2 (09:39→21:48)
[2018-07-15] MEDS: AMLODIPINE 5 MG TAB GTB (09:39)
[2018-07-15] MEDS: BUPROPION 100 MG TAB PEG ×2 (09:39→21:45)
[2018-07-15] MEDS: HEPARIN 5,000 UNIT/1 ML VIAL SC ×2 (09:50→21:51)
[2018-07-15] MEDS: EPOETIN 10000 UNITS/1 ML INJ (ESRD) SC (16:46)
[2018-07-15] MEDS: FAMOTIDINE 20 MG TAB PEG (21:45)
[2018-07-16] MEDS: INSULIN ASPART [NOVOLOG] 3 ML PEN SC ×5 (00:07→23:58)
[2018-07-16] MEDS: ACCU-CHEK XX ×4 (00:08→18:06)
[2018-07-16] MEDS: ALBUTEROL/IPRATROPIUM (NEB) 3 ML AMP HHN ×6 (00:31→20:01)
[2018-07-16] MEDS: LEVOTHYROXINE 75 MCG TAB GTB (05:27)
[2018-07-16] MEDS: NPH, HUMAN INSULIN ISOPHANE 3ML VIAL SC ×3 (05:34→23:58)
[2018-07-16] MEDS: AMLODIPINE 5 MG TAB GTB (09:00)
[2018-07-16] MEDS: BUPROPION 100 MG TAB PEG ×2 (09:00→20:46)
[2018-07-16] MEDS: HEPARIN 5,000 UNIT/1 ML VIAL SC ×2 (09:00→20:58)
[2018-07-16] MEDS: METOPROLOL 100 MG TAB PEG ×2 (09:00→20:46)
[2018-07-16] MEDS: TIOTROPIUM 18 MCG CAPSULE INHA DEV INH (09:00)
[2018-07-16] MEDS: VENLAFAXINE 37.5 MG TAB GTB ×2 (09:00→20:47)
[2018-07-16] MEDS: SODIUM HYPOCHLORITE (1/40) 1 APPLIC BTL IRR (09:42)
[2018-07-16] MEDS: COLLAGENASE 5 GM (UD JAR) TOP (09:43)
[2018-07-16] MEDS ORDERED: HEPARIN 5,000 UNIT/0.5 ML VIAL (20:02)
[2018-07-16] MEDS: FAMOTIDINE 20 MG TAB PEG (20:46)
[2018-07-16] MEDS: ACETAMINOPHEN 325 MG TAB PO (20:50)
[2018-07-17] MEDS: ACCU-CHEK XX ×4 (00:04→18:09)
[2018-07-17] MEDS: ALBUTEROL/IPRATROPIUM (NEB) 3 ML AMP HHN ×6 (00:15→20:46)
[2018-07-17] MEDS: INSULIN ASPART [NOVOLOG] 3 ML PEN SC ×3 (06:00→18:00)
[2018-07-17] MEDS: LEVOTHYROXINE 75 MCG TAB GTB (06:02)
[2018-07-17] MEDS: NPH, HUMAN INSULIN ISOPHANE 3ML VIAL SC ×3 (06:56→22:11)
[2018-07-17] MEDS ORDERED: HEPARIN 5,000 UNIT/0.5 ML VIAL (08:36)
[2018-07-17] MEDS: BUPROPION 100 MG TAB PEG ×2 (08:44→20:41)
[2018-07-17] MEDS: AMLODIPINE 5 MG TAB GTB (08:44)
[2018-07-17] MEDS: METOPROLOL 100 MG TAB PEG ×2 (08:44→20:42)
[2018-07-17] MEDS: TIOTROPIUM 18 MCG CAPSULE INHA DEV INH (09:00)
[2018-07-17] MEDS: HEPARIN 5,000 UNIT/1 ML VIAL SC ×2 (09:05→22:11)
[2018-07-17] MEDS: COLLAGENASE 5 GM (UD JAR) TOP (09:06)
[2018-07-17] MEDS: SODIUM HYPOCHLORITE (1/40) 1 APPLIC BTL IRR (09:06)
[2018-07-17] MEDS: VENLAFAXINE 37.5 MG TAB GTB ×2 (12:42→20:41)
[2018-07-17] MEDS: LEVETIRACETAM (100 MG/ML) 5ML CUP GTB ×2 (14:43→20:41)
[2018-07-17] MEDS: EPOETIN 10000 UNITS/1 ML INJ (ESRD) SC (18:11)
[2018-07-17] MEDS: ACETAMINOPHEN 325 MG TAB PO (18:40)
[2018-07-17] MEDS: FAMOTIDINE 20 MG TAB PEG (20:41)
[2018-07-18] MEDS: DEXTROSE 50% 50 ML SYRINGE IV ×3 (00:10→06:15)
[2018-07-18] MEDS: ACCU-CHEK XX ×4 (00:12→18:05)
[2018-07-18] MEDS: ALBUTEROL/IPRATROPIUM (NEB) 3 ML AMP HHN ×6 (01:43→21:04)
[2018-07-18] MEDS: NPH, HUMAN INSULIN ISOPHANE 3ML VIAL SC ×3 (06:00→22:01)
[2018-07-18] MEDS: INSULIN ASPART [NOVOLOG] 3 ML PEN SC ×5 (06:00→23:58)
[2018-07-18] MEDS: LEVOTHYROXINE 75 MCG TAB GTB (06:19)
[2018-07-18] MEDS ORDERED: HEPARIN 5,000 UNIT/0.5 ML VIAL ×2 (09:16→19:37)
[2018-07-18] MEDS: LEVETIRACETAM (100 MG/ML) 5ML CUP GTB ×2 (09:22→20:29)
[2018-07-18] MEDS: AMLODIPINE 5 MG TAB GTB (09:23)
[2018-07-18] MEDS: METOPROLOL 100 MG TAB PEG ×2 (09:23→20:23)
[2018-07-18] MEDS: ACETAMINOPHEN 325 MG TAB PO ×2 (09:23→14:22)
[2018-07-18] MEDS: BUPROPION 100 MG TAB PEG ×2 (09:23→20:23)
[2018-07-18] MEDS: VENLAFAXINE 37.5 MG TAB GTB (09:23)
[2018-07-18] MEDS: COLLAGENASE 5 GM (UD JAR) TOP (09:24)
[2018-07-18] MEDS: SODIUM HYPOCHLORITE (1/40) 1 APPLIC BTL IRR (09:24)
[2018-07-18] MEDS: TIOTROPIUM 18 MCG CAPSULE INHA DEV INH (09:24)
[2018-07-18] MEDS: HEPARIN 5,000 UNIT/1 ML VIAL SC ×2 (09:37→20:28)
[2018-07-18 11:10] LABS: ADD MAN DIFF? NO
[2018-07-18 11:17] LABS: WHITE BLOOD COUNT 12.7 10^3/ul (4.8-10.8)
[2018-07-18 11:17] LABS: ABNORMAL IP MESSAGE 1; BASOPHILS % 0.2 % (0.0-2.0); EOSINOPHILS # 0.7 10^3/ul (0.0-0.5); EOSINOPHILS % 5.5 % (0.0-7.0); HEMATOCRIT 27.4 % (37.0-47.0); HEMOGLOBIN 8.4 g/dl (12.0-16.0); LYMPHOCYTES # 1.3 10^3/ul (0.8-2.9); LYMPHOCYTES % 10.2 % (15.0-51.0); MEAN CORPUSCULAR HEMOGLOBIN 29.9 pg (29.0-33.0); MEAN CORPUSCULAR HGB CONC 30.7 g/dl (32.0-37.0); MEAN CORPUSCULAR VOLUME 97.5 fl (82.0-101.0); MEAN PLATELET VOLUME 9.4 fl (7.4-10.4); MONOCYTE # 0.6 10^3/ul (0.3-0.9); MONOCYTES % 4.4 % (0.0-11.0); PLATELET COUNT 685 10^3/UL (140-415); RED BLOOD COUNT 2.81 10^6/ul (4.20-5.40); RED CELL DISTRIBUTION WIDTH 23.4 % (11.5-14.5)
[2018-07-18 11:26] LABS: POSITIVE DIFF @See below
[2018-07-18 11:33] LABS: ALANINE AMINOTRANSFERASE 27 IU/L (13-69); ALBUMIN/GLOBULIN RATIO 0.85; ALKALINE PHOSPHATASE 412 IU/L (42-121); ANION GAP 15 (5-13); ASPARTATE AMINO TRANSFERASE 38 IU/L (15-46); BILIRUBIN,INDIRECT 0.1 mg/dl (0-1.1); BILIRUBIN,TOTAL 0.1 mg/dl (0.2-1.3); BLOOD UREA NITROGEN 92 mg/dl (7-20); CALCIUM 8.4 mg/dl (8.4-10.2); CARBON DIOXIDE 27 mmol/L (21-31); CHLORIDE 93 mmol/L (97-110); CREATININE 3.26 mg/dl (0.44-1.00); GLUCOSE 202 mg/dl (70-220); POTASSIUM 4.2 mmol/L (3.5-5.1); SODIUM 135 mmol/L (135-144); TOTAL PROTEIN 6.5 g/dl (6.1-8.1)
[2018-07-18] MEDS: DOCUSATE SODIUM 10 MG/ML (10ML CUP) GTB (18:09)
[2018-07-18] MEDS: FAMOTIDINE 20 MG TAB PEG (20:23)
[2018-07-18] MEDS: VENLAFAXINE 75 MG TABLET GTB (20:28)
[2018-07-19] MEDS: LEVOTHYROXINE 75 MCG TAB GTB (00:06)
[2018-07-19] MEDS: ALBUTEROL/IPRATROPIUM (NEB) 3 ML AMP HHN ×6 (00:44→20:05)
[2018-07-19] MEDS: ACETAMINOPHEN 325 MG TAB PO (05:21)
[2018-07-19] MEDS: NPH, HUMAN INSULIN ISOPHANE 3ML VIAL SC ×3 (05:36→22:02)
[2018-07-19] MEDS: INSULIN ASPART [NOVOLOG] 3 ML PEN SC ×4 (05:43→23:53)
[2018-07-19] MEDS: ACCU-CHEK XX ×5 (05:47→23:56)
[2018-07-19] MEDS ORDERED: HEPARIN 5,000 UNIT/0.5 ML VIAL ×2 (07:56→20:52)
[2018-07-19] MEDS: METOPROLOL 100 MG TAB PEG ×2 (08:02→20:57)
[2018-07-19] MEDS: LEVETIRACETAM (100 MG/ML) 5ML CUP GTB ×2 (08:02→20:56)
[2018-07-19] MEDS: BUPROPION 100 MG TAB PEG ×2 (08:02→20:57)
[2018-07-19] MEDS: AMLODIPINE 5 MG TAB GTB (08:02)
[2018-07-19] MEDS: VENLAFAXINE 75 MG TABLET GTB ×2 (08:02→20:56)
[2018-07-19] MEDS: COLLAGENASE 5 GM (UD JAR) TOP (08:03)
[2018-07-19] MEDS: TIOTROPIUM 18 MCG CAPSULE INHA DEV INH (08:03)
[2018-07-19] MEDS: SODIUM HYPOCHLORITE (1/40) 1 APPLIC BTL IRR (08:03)
[2018-07-19] MEDS: HEPARIN 5,000 UNIT/1 ML VIAL SC ×2 (08:04→20:59)
[2018-07-19] MEDS: EPOETIN 10000 UNITS/1 ML INJ (ESRD) SC (17:50)
[2018-07-19] MEDS: FAMOTIDINE 20 MG TAB PEG (20:57)
[2018-07-19] MEDS: LORAZEPAM 1 MG TAB GTB (23:48)
[2018-07-20] MEDS: ALBUTEROL/IPRATROPIUM (NEB) 3 ML AMP HHN ×6 (01:08→16:13)
[2018-07-20] MEDS: ACETAMINOPHEN 325 MG TAB PO ×3 (03:51→15:21)
[2018-07-20] MEDS: LEVOTHYROXINE 75 MCG TAB GTB (05:57)
[2018-07-20] MEDS: INSULIN ASPART [NOVOLOG] 3 ML PEN SC ×3 (06:00→17:22)
[2018-07-20] MEDS: NPH, HUMAN INSULIN ISOPHANE 3ML VIAL SC ×2 (06:03→14:31)
[2018-07-20] MEDS: ACCU-CHEK XX ×3 (06:04→17:22)
[2018-07-20] MEDS: TIOTROPIUM 18 MCG CAPSULE INHA DEV INH ×2 (09:00→09:32)
[2018-07-20] MEDS ORDERED: HEPARIN 5,000 UNIT/0.5 ML VIAL (09:23)
[2018-07-20] MEDS: LEVETIRACETAM (100 MG/ML) 5ML CUP GTB (09:31)
[2018-07-20] MEDS: COLLAGENASE 5 GM (UD JAR) TOP (09:32)
[2018-07-20] MEDS: BUPROPION 100 MG TAB PEG (09:32)
[2018-07-20] MEDS: VENLAFAXINE 75 MG TABLET GTB (09:32)
[2018-07-20] MEDS: SODIUM HYPOCHLORITE (1/40) 1 APPLIC BTL IRR (09:33)
[2018-07-20] MEDS: HEPARIN 5,000 UNIT/1 ML VIAL SC (09:52)
[2018-07-20] MEDS: AMLODIPINE 5 MG TAB GTB (14:24)
[2018-07-20] MEDS: METOPROLOL 100 MG TAB PEG (14:24)
== END 2018-07-20 18:24 | DRG 673 ==
LOC: TEL 06-02 11:37 → PP2 06-17 12:45 → TEL 06-23 02:59 → 2NE 07-05 18:09 → 6WM 07-14 15:57 → 2NE 17:00 → E/R 11:43 → TEL 07-01 16:39 → 2NE 14:17
PROVIDERS: Internal Medicine
PROC: 03180KD Bypass Left Brachial Artery to Upper Arm Vein with Nonautologous Tissue Substitute, Open Approach (ICD-10-PCS; principal; 2018-06-03 07:31)
PROC: 0JH63XZ Insertion of Tunneled Vascular Access Device into Chest Subcutaneous Tissue and Fascia, Percutaneous Approach (ICD-10-PCS; 2018-06-03 07:31)
PROC: 02H633Z Insertion of Infusion Device into Right Atrium, Percutaneous Approach (ICD-10-PCS; 2018-06-03 07:31)
PROC: 0CJS8ZZ Inspection of Larynx, Via Natural or Artificial Opening Endoscopic (ICD-10-PCS; 2018-06-03 07:31)
PROC: 0CJY8ZZ Inspection of Mouth and Throat, Via Natural or Artificial Opening Endoscopic (ICD-10-PCS; 2018-06-03 07:31)
PROC: 0DH63UZ Insertion of Feeding Device into Stomach, Percutaneous Approach (ICD-10-PCS; 2018-06-03 07:31)
PROC: 5A1D70Z Performance of Urinary Filtration, Intermittent, Less than 6 Hours Per Day (ICD-10-PCS; 2018-06-03 07:31)
PROC: 02PAX3Z Removal of Infusion Device from Heart, External Approach (ICD-10-PCS; 2018-06-03 07:31)
PROC: 30233N1 Transfusion of Nonautologous Red Blood Cells into Peripheral Vein, Percutaneous Approach (ICD-10-PCS; 2018-06-03 07:31)
DX: N17.9 Acute kidney failure, unspecified (principal); J69.0 Pneumonitis due to inhalation of food and vomit; L89.153 Pressure ulcer of sacral region, stage 3; G92 Toxic encephalopathy; J15.5 Pneumonia due to Escherichia coli; I12.0 Hypertensive chronic kidney disease with stage 5 chronic kidney disease or end stage renal disease; F33.9 Major depressive disorder, recurrent, unspecified; M33.10 Other dermatomyositis, organ involvement unspecified; I47.1 Supraventricular tachycardia; E78.5 Hyperlipidemia, unspecified; M48.061 Spinal stenosis, lumbar region without neurogenic claudication; F34.1 Dysthymic disorder; E86.0 Dehydration; D63.1 Anemia in chronic kidney disease; E11.65 Type 2 diabetes mellitus with hyperglycemia; K21.9 Gastro-esophageal reflux disease without esophagitis; E11.649 Type 2 diabetes mellitus with hypoglycemia without coma; S06.5X9D Traumatic subdural hemorrhage with loss of consciousness of unspecified duration, subsequent encounter; W19.XXXD Unspecified fall, subsequent encounter; E11.21 Type 2 diabetes mellitus with diabetic nephropathy; E11.319 Type 2 diabetes mellitus with unspecified diabetic retinopathy without macular edema; E11.40 Type 2 diabetes mellitus with diabetic neuropathy, unspecified; H92.09 Otalgia, unspecified ear; J45.20 Mild intermittent asthma, uncomplicated; M54.41 Lumbago with sciatica, right side; E53.8 Deficiency of other specified B group vitamins; M19.91 Primary osteoarthritis, unspecified site; N18.6 End stage renal disease; R49.0 Dysphonia; E83.39 Other disorders of phosphorus metabolism; E03.9 Hypothyroidism, unspecified; R62.7 Adult failure to thrive; E11.22 Type 2 diabetes mellitus with diabetic chronic kidney disease; Z79.4 Long term (current) use of insulin; Z96.653 Presence of artificial knee joint, bilateral
CPT/HCPCS: 36430; 36600; 70450; 71045; 74176; 74230; 80048; 80053; 80202; 82140; 82607; 82728; 82803; 82962; 83036; 83540; 83605; 83735; 84100; 84132; 84436; 84443; 84479; 84484; 85025; 85610; 85651; 85730; 86704; 86708; 86709; 86803; 86850; 86900; 86901; 86920; 87040; 87070; 87081; 87340; 90686; 90935; 92526; 92610; 92611; 93005; 93306; 93970; 94640; 94664; 94760; 95819; 96374; 97110; 97163; 97530; 99285-25

== ENCOUNTER 2018-08-02 17:26 | Inpatient (IN) | payer MEDICARE, OTHER ==
[2018-08-02 18:07] LABS: WHITE BLOOD COUNT 22.2 10^3/ul (4.8-10.8)
[2018-08-02 18:07] LABS: ABNORMAL IP MESSAGE 1; MEAN CORPUSCULAR HEMOGLOBIN 30.7 pg (29.0-33.0); MEAN PLATELET VOLUME 9.1 fl (7.4-10.4); PLATELET COUNT 578 10^3/UL (140-415); RED BLOOD COUNT 2.02 10^6/ul (4.20-5.40); RED CELL DISTRIBUTION WIDTH 20.3 % (11.5-14.5)
[2018-08-02 18:26] LABS: ANION GAP 10 (5-13); BLOOD UREA NITROGEN 51 mg/dl (7-20); CALCIUM 9.1 mg/dl (8.4-10.2); CARBON DIOXIDE 33 mmol/L (21-31); CHLORIDE 93 mmol/L (97-110); CREATININE 2.43 mg/dl (0.44-1.00); GLUCOSE 67 mg/dl (70-220); POTASSIUM 4.1 mmol/L (3.5-5.1); SODIUM 136 mmol/L (135-144)
[2018-08-02] MEDS: ACETAMINOPHEN 650 MG SUPP PR (18:26)
[2018-08-02] MEDS: VANCOMYCIN 1 GM (PMX) 250 ML IVPB (18:27)
[2018-08-02 18:30] LABS: HEMOGLOBIN 6.2 g/dl (12.0-16.0); POSITIVE DIFF @See below
[2018-08-02 18:31] LABS: ADD MAN DIFF? YES; PATH REVIEW? YES
[2018-08-02 18:31] LABS: LACTIC ACID 2.1 mmol/L (0.5-2.0)
[2018-08-02 18:37] LABS: TROPONIN-I 0.024 ng/ml (0.000-0.120)
[2018-08-02 18:50] LABS: INR 1.04; PROTIME 13.7 Sec (11.9-14.9); PT RATIO 1.1
[2018-08-02 18:51] LABS: PARTIAL THROMBOPLASTIN TIME 41.7 Sec (23.0-35.0)
[2018-08-02 19:34] LABS: IMMEDIATE SPIN CROSSMATCH 1 2
[2018-08-02 19:44] LABS: ANISOCYTOSIS 1+ (0-0); BAND NEUTROPHILS #M 0.6 10^3/ul (0.0-0.6); BAND NEUTROPHILS % (M) 3 % (0-4); BASOPHIL #M 0.4 10^3/ul (0.0-0.0); BASOPHILS % (M) 2 % (0-2); EOSINOPHILS % (M) 4 % (0-7); GIANT THROMBO% (M) 1 % (0-0); HYPOCHROMASIA 1+ (0-0); LYMPHOCYTES #M 2.6 10^3/ul (0.8-2.9); LYMPHOCYTES % (M) 12 % (15-51); MONOCYTE #M 0.2 10^3/ul (0.3-0.9); MONOCYTES % (M) 1 % (0-11); PLATELET ESTIMATE INCREASED; POLYCHROMASIA 3+ (0-0); SEG NEUT #M 17.4 10^3/ul (1.6-7.5); SEGMENTED NEUTROPHILS (M) % 78 % (39-77); SMUDGE%M 41 % (0-0)
[2018-08-02] MEDS: SOD CHLORIDE 0.9% 250 ML IV (19:45)
[2018-08-02 20:42] LABS: LACTIC ACID 0.8 mmol/L (0.5-2.0)
[2018-08-02] MEDS ORDERED: ACETAMINOPHEN 325 MG TAB PO (21:00)
[2018-08-02] MEDS ORDERED: ONDANSETRON 4 MG INJ IV ×2 (21:00→22:30)
[2018-08-02] MEDS ORDERED: DEXTROSE 50% 50 ML SYRINGE (21:13)
[2018-08-02] MEDS: DEXTROSE 50% 50 ML SYRINGE IV (21:15)
[2018-08-02] MEDS ORDERED: NACL 0.9% 3 ML SYG IV (22:30)
[2018-08-02] MEDS ORDERED: GLUCOSE GEL 15 GRAM TUBE BUCCAL (23:00)
[2018-08-02] MEDS: INSULIN ASPART [NOVOLOG] 3 ML PEN SC (23:00)
[2018-08-02] MEDS ORDERED: GLUCOSE GEL 15 GRAM TUBE PO ×2 (23:00)
[2018-08-02] MEDS ORDERED: DEXTROSE 50% 50 ML SYRINGE IV ×2 (23:00)
[2018-08-02] MEDS ORDERED: BISACODYL 10 MG SUPP PR (23:00)
[2018-08-02] MEDS ORDERED: GLUCAGON 1 MG INJ IM (23:00)
[2018-08-02] MEDS: DEXTROSE 5%-0.45% NACL 1,000 ML IV (23:15)
[2018-08-02] MEDS: AZTREONAM 2 GM in SOD CHLORIDE 0.9% 100 ML IVPB (23:15)
[2018-08-02] MEDS ORDERED: VANCOMYCIN IV PER PHARMACY XX (23:30)
[2018-08-02] MEDS: hydrALAzine 20 MG INJ IV (23:50)
[2018-08-03 00:01] LABS: LACTIC ACID 1.9 mmol/L (0.5-2.0)
[2018-08-03] MEDS: HYDROmorphONE 0.5 MG/0.5 ML SYG IV ×3 (00:51→22:26)
[2018-08-03] MEDS: INSULIN ASPART [NOVOLOG] 3 ML PEN SC ×4 (05:00→23:00)
[2018-08-03 06:08] LABS: ADD MAN DIFF? NO
[2018-08-03 06:17] LABS: BASOPHILS % 0.1 % (0.0-2.0); EOSINOPHILS # 0.2 10^3/ul (0.0-0.5); EOSINOPHILS % 1.1 % (0.0-7.0); HEMOGLOBIN 7.3 g/dl (12.0-16.0); LYMPHOCYTES # 1.3 10^3/ul (0.8-2.9); MEAN CORPUSCULAR HEMOGLOBIN 29.3 pg (29.0-33.0); MEAN CORPUSCULAR HGB CONC 31.7 g/dl (32.0-37.0); MEAN CORPUSCULAR VOLUME 92.4 fl (82.0-101.0); MEAN PLATELET VOLUME 8.9 fl (7.4-10.4); MONOCYTE # 0.6 10^3/ul (0.3-0.9); MONOCYTES % 2.6 % (0.0-11.0); NEUTROPHIL # 19.3 10^3/ul (1.6-7.5); NEUTROPHILS % 89.3 % (39.0-77.0); PLATELET COUNT 499 10^3/UL (140-415); RED BLOOD COUNT 2.49 10^6/ul (4.20-5.40); RED CELL DISTRIBUTION WIDTH 20.6 % (11.5-14.5)
[2018-08-03 06:17] LABS: WHITE BLOOD COUNT 21.7 10^3/ul (4.8-10.8)
[2018-08-03 06:34] LABS: HEMOGLOBIN A1C 5.4 % (0-5.9)
[2018-08-03 07:04] LABS: ALANINE AMINOTRANSFERASE 38 IU/L (13-69); ALBUMIN 2.7 g/dl (3.3-4.9); ALBUMIN/GLOBULIN RATIO 0.87; ALKALINE PHOSPHATASE 483 IU/L (42-121); ANION GAP 12 (5-13); ASPARTATE AMINO TRANSFERASE 37 IU/L (15-46); BILIRUBIN,INDIRECT 0.2 mg/dl (0-1.1); BILIRUBIN,TOTAL 0.2 mg/dl (0.2-1.3); BLOOD UREA NITROGEN 55 mg/dl (7-20); CALCIUM 8.8 mg/dl (8.4-10.2); CARBON DIOXIDE 29 mmol/L (21-31); CHLORIDE 98 mmol/L (97-110); CREATININE 2.72 mg/dl (0.44-1.00); GLUCOSE 131 mg/dl (70-220); MAGNESIUM 2.7 mg/dl (1.7-2.5); PHOSPHORUS 3.5 mg/dl (2.5-4.9); SODIUM 139 mmol/L (135-144); TOTAL PROTEIN 5.8 g/dl (6.1-8.1)
[2018-08-03] MEDS: AMLODIPINE 5 MG TAB GTB (07:26)
[2018-08-03 07:38] LABS: POTASSIUM 4.1 mmol/L (3.5-5.1)
[2018-08-03] MEDS: ASCORBIC ACID 500 MG TAB GTB (10:11)
[2018-08-03] MEDS: LEVOTHYROXINE 75 MCG TAB PO (10:11)
[2018-08-03] MEDS: AZTREONAM 0.5 GM in SOD CHLORIDE 0.9% 50 ML IV ×2 (10:11→22:26)
[2018-08-03] MEDS: LEVETIRACETAM (100 MG/ML) 5ML CUP GTB ×2 (10:11→22:26)
[2018-08-03] MEDS: hydrALAzine 20 MG INJ IV (13:48)
[2018-08-03] MEDS: COLLAGENASE 5 GM (UD JAR) TOP (16:58)
[2018-08-03] MEDS: BALSAM PERU/CASTOR OIL 60 GM TUBE TOP ×2 (16:58→23:28)
[2018-08-03] MEDS: SODIUM HYPOCHLORITE (1/40) 1 APPLIC BTL IRR (16:58)
[2018-08-03] MEDS: DEXTROSE 5%-0.45% NACL 1,000 ML IV (18:54)
[2018-08-03] MEDS: FAMOTIDINE 20 MG TAB GTB (22:26)
[2018-08-03] MEDS: ATORVASTATIN 10 MG TAB GTB (22:26)
[2018-08-04] MEDS: INSULIN ASPART [NOVOLOG] 3 ML PEN SC ×4 (06:05→23:39)
[2018-08-04] MEDS: LEVOTHYROXINE 75 MCG TAB PO (06:20)
[2018-08-04 07:07] LABS: VANCOMYCIN,RANDOM 9.5 ug/ml
[2018-08-04] MEDS: AZTREONAM 0.5 GM in SOD CHLORIDE 0.9% 50 ML IV ×2 (08:26→21:31)
[2018-08-04] MEDS: AMLODIPINE 5 MG TAB GTB (08:26)
[2018-08-04] MEDS: LEVETIRACETAM (100 MG/ML) 5ML CUP GTB ×2 (08:26→21:31)
[2018-08-04] MEDS: ASCORBIC ACID 500 MG TAB GTB (08:26)
[2018-08-04] MEDS: hydrALAzine 20 MG INJ IV (08:26)
[2018-08-04] MEDS: BALSAM PERU/CASTOR OIL 60 GM TUBE TOP ×2 (08:27→21:32)
[2018-08-04] MEDS: SODIUM HYPOCHLORITE (1/40) 1 APPLIC BTL IRR (08:27)
[2018-08-04] MEDS: COLLAGENASE 5 GM (UD JAR) TOP (08:27)
[2018-08-04] MEDS: VANCOMYCIN 1 GM 250 ML IVPB (10:38)
[2018-08-04] MEDS: DEXTROSE 5%-0.45% NACL 1,000 ML IV (12:19)
[2018-08-04 13:16] LABS: ADD MAN DIFF? NO
[2018-08-04 13:19] LABS: WHITE BLOOD COUNT 14.3 10^3/ul (4.8-10.8)
[2018-08-04 13:19] LABS: BASOPHILS % 0.2 % (0.0-2.0); EOSINOPHILS # 0.2 10^3/ul (0.0-0.5); EOSINOPHILS % 1.2 % (0.0-7.0); HEMATOCRIT 28.9 % (37.0-47.0); HEMOGLOBIN 9.3 g/dl (12.0-16.0); LYMPHOCYTES # 0.8 10^3/ul (0.8-2.9); LYMPHOCYTES % 5.7 % (15.0-51.0); MEAN CORPUSCULAR HEMOGLOBIN 30.1 pg (29.0-33.0); MEAN CORPUSCULAR HGB CONC 32.2 g/dl (32.0-37.0); MEAN CORPUSCULAR VOLUME 93.5 fl (82.0-101.0); MEAN PLATELET VOLUME 8.7 fl (7.4-10.4); MONOCYTE # 0.4 10^3/ul (0.3-0.9); MONOCYTES % 2.8 % (0.0-11.0); NEUTROPHIL # 12.8 10^3/ul (1.6-7.5); NEUTROPHILS % 89.3 % (39.0-77.0); PLATELET COUNT 464 10^3/UL (140-415); RED BLOOD COUNT 3.09 10^6/ul (4.20-5.40); RED CELL DISTRIBUTION WIDTH 19.1 % (11.5-14.5)
[2018-08-04 13:35] LABS: ALANINE AMINOTRANSFERASE 31 IU/L (13-69); ALBUMIN 2.6 g/dl (3.3-4.9); ALBUMIN/GLOBULIN RATIO 0.83; ALKALINE PHOSPHATASE 416 IU/L (42-121); ANION GAP 12 (5-13); ASPARTATE AMINO TRANSFERASE 26 IU/L (15-46); BILIRUBIN,INDIRECT 0.4 mg/dl (0-1.1); BILIRUBIN,TOTAL 0.4 mg/dl (0.2-1.3); BLOOD UREA NITROGEN 30 mg/dl (7-20); CARBON DIOXIDE 28 mmol/L (21-31); CHLORIDE 97 mmol/L (97-110); CREATININE 2.13 mg/dl (0.44-1.00); GLUCOSE 184 mg/dl (70-220); POTASSIUM 3.5 mmol/L (3.5-5.1); SODIUM 137 mmol/L (135-144); TOTAL PROTEIN 5.7 g/dl (6.1-8.1)
[2018-08-04] MEDS ORDERED: AMIKACIN IV PER PHARMACY XX (15:00)
[2018-08-04] MEDS: SOD CHLORIDE 0.9% IVPB (17:30)
[2018-08-04] MEDS: AMIKACIN IVPB (17:30)
[2018-08-04] MEDS: ATORVASTATIN 10 MG TAB GTB (21:31)
[2018-08-04] MEDS: FAMOTIDINE 20 MG TAB GTB (21:31)
[2018-08-04] MEDS: HYDROmorphONE 0.5 MG/0.5 ML SYG IV (23:26)
[2018-08-05] MEDS: HYDROmorphONE 0.5 MG/0.5 ML SYG IV ×4 (03:31→22:27)
[2018-08-05] MEDS: INSULIN ASPART [NOVOLOG] 3 ML PEN SC ×4 (04:44→23:23)
[2018-08-05 05:39] LABS: ADD MAN DIFF? NO
[2018-08-05 05:42] LABS: BASOPHILS % 0.1 % (0.0-2.0); EOSINOPHILS # 0.2 10^3/ul (0.0-0.5); EOSINOPHILS % 1.5 % (0.0-7.0); HEMATOCRIT 29.3 % (37.0-47.0); HEMOGLOBIN 9.2 g/dl (12.0-16.0); LYMPHOCYTES # 0.7 10^3/ul (0.8-2.9); LYMPHOCYTES % 5.9 % (15.0-51.0); MEAN CORPUSCULAR HEMOGLOBIN 29.6 pg (29.0-33.0); MEAN CORPUSCULAR HGB CONC 31.4 g/dl (32.0-37.0); MEAN CORPUSCULAR VOLUME 94.2 fl (82.0-101.0); MEAN PLATELET VOLUME 8.6 fl (7.4-10.4); MONOCYTE # 0.3 10^3/ul (0.3-0.9); MONOCYTES % 2.1 % (0.0-11.0); NEUTROPHIL # 11.2 10^3/ul (1.6-7.5); NEUTROPHILS % 89.5 % (39.0-77.0); PLATELET COUNT 466 10^3/UL (140-415); RED BLOOD COUNT 3.11 10^6/ul (4.20-5.40); RED CELL DISTRIBUTION WIDTH 18.6 % (11.5-14.5)
[2018-08-05 05:42] LABS: WHITE BLOOD COUNT 12.5 10^3/ul (4.8-10.8)
[2018-08-05] MEDS: LEVOTHYROXINE 75 MCG TAB PO (06:13)
[2018-08-05 06:23] LABS: ALANINE AMINOTRANSFERASE 20 IU/L (13-69); ALBUMIN/GLOBULIN RATIO 0.83; ALKALINE PHOSPHATASE 347 IU/L (42-121); ANION GAP 12 (5-13); ASPARTATE AMINO TRANSFERASE 18 IU/L (15-46); BILIRUBIN,INDIRECT 0.2 mg/dl (0-1.1); BILIRUBIN,TOTAL 0.2 mg/dl (0.2-1.3); BLOOD UREA NITROGEN 36 mg/dl (7-20); CALCIUM 7.9 mg/dl (8.4-10.2); CARBON DIOXIDE 26 mmol/L (21-31); CHLORIDE 100 mmol/L (97-110); CREATININE 2.64 mg/dl (0.44-1.00); GLUCOSE 206 mg/dl (70-220); POTASSIUM 3.1 mmol/L (3.5-5.1); SODIUM 138 mmol/L (135-144); TOTAL PROTEIN 5.5 g/dl (6.1-8.1)
[2018-08-05 06:31] LABS: ALBUMIN 2.5 g/dl (3.3-4.9)
[2018-08-05] MEDS: COLLAGENASE 5 GM (UD JAR) TOP (09:00)
[2018-08-05] MEDS: SODIUM HYPOCHLORITE (1/40) 1 APPLIC BTL IRR (09:00)
[2018-08-05] MEDS: SILVER NITRATE SWAB TOP (09:00)
[2018-08-05] MEDS: BALSAM PERU/CASTOR OIL 60 GM TUBE TOP ×2 (09:00→21:33)
[2018-08-05] MEDS: LEVETIRACETAM (100 MG/ML) 5ML CUP GTB ×2 (09:31→21:31)
[2018-08-05] MEDS: DEXTROSE 5%-0.45% NACL 1,000 ML IV (09:31)
[2018-08-05] MEDS: POTASSIUM CHLORIDE 20 MEQ POWDER FOR ORAL SOLN GTB (09:32)
[2018-08-05] MEDS: AMLODIPINE 5 MG TAB GTB (09:32)
[2018-08-05] MEDS: ASCORBIC ACID 500 MG TAB GTB (09:32)
[2018-08-05] MEDS: AZTREONAM 0.5 GM in SOD CHLORIDE 0.9% 50 ML IV ×2 (09:34→21:31)
[2018-08-05] MEDS: FAMOTIDINE 20 MG TAB GTB (21:00)
[2018-08-05] MEDS: ATORVASTATIN 10 MG TAB GTB (21:00)
[2018-08-06] MEDS: DEXTROSE 5%-0.45% NACL 1,000 ML IV (03:01)
[2018-08-06] MEDS: INSULIN ASPART [NOVOLOG] 3 ML PEN SC ×4 (05:00→23:44)
[2018-08-06] MEDS: LEVOTHYROXINE 75 MCG TAB PO (05:35)
[2018-08-06 05:37] LABS: ADD MAN DIFF? NO
[2018-08-06 05:44] LABS: WHITE BLOOD COUNT 16.2 10^3/ul (4.8-10.8)
[2018-08-06 05:44] LABS: BASOPHILS % 0.2 % (0.0-2.0); EOSINOPHILS # 0.2 10^3/ul (0.0-0.5); EOSINOPHILS % 1.2 % (0.0-7.0); HEMATOCRIT 26.6 % (37.0-47.0); HEMOGLOBIN 8.4 g/dl (12.0-16.0); LYMPHOCYTES # 0.9 10^3/ul (0.8-2.9); LYMPHOCYTES % 5.6 % (15.0-51.0); MEAN CORPUSCULAR HEMOGLOBIN 29.6 pg (29.0-33.0); MEAN CORPUSCULAR HGB CONC 31.6 g/dl (32.0-37.0); MEAN CORPUSCULAR VOLUME 93.7 fl (82.0-101.0); MEAN PLATELET VOLUME 8.7 fl (7.4-10.4); MONOCYTE # 0.5 10^3/ul (0.3-0.9); MONOCYTES % 3.3 % (0.0-11.0); NEUTROPHIL # 14.4 10^3/ul (1.6-7.5); NEUTROPHILS % 88.8 % (39.0-77.0); PLATELET COUNT 471 10^3/UL (140-415); RED BLOOD COUNT 2.84 10^6/ul (4.20-5.40); RED CELL DISTRIBUTION WIDTH 18.5 % (11.5-14.5)
[2018-08-06 05:54] LABS: ALANINE AMINOTRANSFERASE 23 IU/L (13-69); ALBUMIN 2.4 g/dl (3.3-4.9); ALKALINE PHOSPHATASE 282 IU/L (42-121); ANION GAP 14 (5-13); ASPARTATE AMINO TRANSFERASE 16 IU/L (15-46); BILIRUBIN,INDIRECT 0.2 mg/dl (0-1.1); BILIRUBIN,TOTAL 0.2 mg/dl (0.2-1.3); BLOOD UREA NITROGEN 45 mg/dl (7-20); CALCIUM 7.9 mg/dl (8.4-10.2); CARBON DIOXIDE 22 mmol/L (21-31); CHLORIDE 102 mmol/L (97-110); CREATININE 3.23 mg/dl (0.44-1.00); GLUCOSE 155 mg/dl (70-220); POTASSIUM 3.6 mmol/L (3.5-5.1); SODIUM 138 mmol/L (135-144); TOTAL PROTEIN 5.4 g/dl (6.1-8.1)
[2018-08-06 05:58] LABS: VANCOMYCIN,RANDOM 17.9 ug/ml
[2018-08-06 08:23] LABS: HEPATITIS B SURFACE ANTIGEN NEGATIVE (NEGATIVE)
[2018-08-06] MEDS: AMLODIPINE 5 MG TAB GTB (08:36)
[2018-08-06] MEDS: ASCORBIC ACID 500 MG TAB GTB (08:37)
[2018-08-06] MEDS: LEVETIRACETAM (100 MG/ML) 5ML CUP GTB ×2 (09:00→20:37)
[2018-08-06] MEDS: AZTREONAM 0.5 GM in SOD CHLORIDE 0.9% 50 ML IV (10:24)
[2018-08-06] MEDS: SODIUM HYPOCHLORITE (1/40) 1 APPLIC BTL IRR (10:25)
[2018-08-06] MEDS: BALSAM PERU/CASTOR OIL 60 GM TUBE TOP ×2 (10:25→20:39)
[2018-08-06] MEDS: COLLAGENASE 5 GM (UD JAR) TOP (10:45)
[2018-08-06] MEDS: SILVER NITRATE SWAB TOP (10:45)
[2018-08-06] MEDS: metroNIDAZOLE 500 MG/NS (PMX) 100 ML IVPB ×2 (14:17→22:14)
[2018-08-06] MEDS: EPOETIN 10000 UNITS/1 ML INJ (ESRD) SC (16:25)
[2018-08-06] MEDS: AMIKACIN 275 MG in SOD CHLORIDE 0.9% 100 ML IVPB (16:25)
[2018-08-06] MEDS: ATORVASTATIN 10 MG TAB GTB (20:37)
[2018-08-06] MEDS: FAMOTIDINE 20 MG TAB GTB (20:38)
[2018-08-06] MEDS: HYDROmorphONE 0.5 MG/0.5 ML SYG IV (22:13)
[2018-08-07] MEDS: DEXTROSE 5%-0.45% NACL 1,000 ML IV
[2018-08-07] MEDS: DILTIAZEM 25 MG INJ IV (01:29)
[2018-08-07] MEDS ORDERED: DILTIAZEM-D5W 125MG/125ML DRIP 125 ML IV (01:30)
[2018-08-07] MEDS: DILTIAZEM-D5W 125MG/125ML DRIP 125 ML IV ×2 (01:45→16:38)
[2018-08-07] MEDS: METOPROLOL 100 MG TAB PO (01:52)
[2018-08-07] MEDS: hydrALAzine 20 MG INJ IV (04:27)
[2018-08-07] MEDS: HYDROmorphONE 0.5 MG/0.5 ML SYG IV ×2 (05:52→14:27)
[2018-08-07] MEDS: metroNIDAZOLE 500 MG/NS (PMX) 100 ML IVPB (06:25)
[2018-08-07] MEDS: LEVOTHYROXINE 75 MCG TAB PO (06:25)
[2018-08-07] MEDS: INSULIN ASPART [NOVOLOG] 3 ML PEN SC ×5 (06:27→20:37)
[2018-08-07] MEDS: ASCORBIC ACID 500 MG TAB GTB (08:30)
[2018-08-07] MEDS: COLLAGENASE 5 GM (UD JAR) TOP (08:30)
[2018-08-07] MEDS: SODIUM HYPOCHLORITE (1/40) 1 APPLIC BTL IRR (08:30)
[2018-08-07] MEDS: AMLODIPINE 5 MG TAB GTB (08:30)
[2018-08-07] MEDS: LEVETIRACETAM (100 MG/ML) 5ML CUP GTB ×2 (08:30→20:13)
[2018-08-07] MEDS: BALSAM PERU/CASTOR OIL 60 GM TUBE TOP ×2 (08:31→20:30)
[2018-08-07] MEDS: VANCOMYCIN 1 GM 250 ML IVPB (11:03)
[2018-08-07] MEDS: LINAGLIPTIN 5 MG TABLET PO (14:22)
[2018-08-07] MEDS: METOPROLOL 50 MG TAB GTB ×2 (16:38→21:31)
[2018-08-07] MEDS: INSULIN GLARGINE [LANTus] (100 UNITS/ML) SYG SC ×2 (17:45→20:27)
[2018-08-07] MEDS: ATORVASTATIN 10 MG TAB GTB (20:12)
[2018-08-07] MEDS: FAMOTIDINE 20 MG TAB GTB (20:13)
[2018-08-07] MEDS: MEROPENEM 500MG/50 ML (PMX) 50 ML IVPB (21:31)
[2018-08-08 05:37] LABS: ADD MAN DIFF? NO
[2018-08-08 05:42] LABS: BASOPHILS % 0.2 % (0.0-2.0); EOSINOPHILS # 0.3 10^3/ul (0.0-0.5); EOSINOPHILS % 1.3 % (0.0-7.0); HEMATOCRIT 28.1 % (37.0-47.0); HEMOGLOBIN 9.1 g/dl (12.0-16.0); LYMPHOCYTES # 1.5 10^3/ul (0.8-2.9); LYMPHOCYTES % 7.9 % (15.0-51.0); MEAN CORPUSCULAR HEMOGLOBIN 30.1 pg (29.0-33.0); MEAN CORPUSCULAR HGB CONC 32.4 g/dl (32.0-37.0); MEAN PLATELET VOLUME 8.6 fl (7.4-10.4); MONOCYTE # 0.6 10^3/ul (0.3-0.9); MONOCYTES % 3.3 % (0.0-11.0); NEUTROPHIL # 16.4 10^3/ul (1.6-7.5); NEUTROPHILS % 85.9 % (39.0-77.0); PLATELET COUNT 519 10^3/UL (140-415); RED BLOOD COUNT 3.02 10^6/ul (4.20-5.40); RED CELL DISTRIBUTION WIDTH 18.6 % (11.5-14.5)
[2018-08-08 05:42] LABS: WHITE BLOOD COUNT 19.1 10^3/ul (4.8-10.8)
[2018-08-08] MEDS: LEVOTHYROXINE 75 MCG TAB PO (06:17)
[2018-08-08] MEDS: METOPROLOL 50 MG TAB GTB ×3 (06:18→21:18)
[2018-08-08 06:25] LABS: ALANINE AMINOTRANSFERASE 17 IU/L (13-69); ALBUMIN 2.5 g/dl (3.3-4.9); ALBUMIN/GLOBULIN RATIO 0.86; ALKALINE PHOSPHATASE 328 IU/L (42-121); ANION GAP 10 (5-13); ASPARTATE AMINO TRANSFERASE 22 IU/L (15-46); BILIRUBIN,INDIRECT 0.1 mg/dl (0-1.1); BILIRUBIN,TOTAL 0.1 mg/dl (0.2-1.3); BLOOD UREA NITROGEN 46 mg/dl (7-20); CALCIUM 8.5 mg/dl (8.4-10.2); CARBON DIOXIDE 28 mmol/L (21-31); CHLORIDE 102 mmol/L (97-110); CREATININE 2.91 mg/dl (0.44-1.00); GLUCOSE 160 mg/dl (70-220); MAGNESIUM 2.3 mg/dl (1.7-2.5); PHOSPHORUS 3.1 mg/dl (2.5-4.9); POTASSIUM 3.3 mmol/L (3.5-5.1); SODIUM 140 mmol/L (135-144); TOTAL PROTEIN 5.4 g/dl (6.1-8.1)
[2018-08-08 06:26] LABS: IRON 35 ug/dl (35-150)
[2018-08-08 06:36] LABS: % IRON SATURATION 27 % SAT (22-52); TOTAL IRON BINDING CAPACITY 131 ug/dl (241-421)
[2018-08-08] MEDS: INSULIN ASPART [NOVOLOG] 3 ML PEN SC ×4 (07:58→20:30)
[2018-08-08] MEDS: COLLAGENASE 5 GM (UD JAR) TOP (09:00)
[2018-08-08] MEDS: BALSAM PERU/CASTOR OIL 60 GM TUBE TOP ×2 (09:00→20:35)
[2018-08-08] MEDS: SODIUM HYPOCHLORITE (1/40) 1 APPLIC BTL IRR (09:00)
[2018-08-08] MEDS: LEVETIRACETAM (100 MG/ML) 5ML CUP GTB ×2 (09:20→20:19)
[2018-08-08] MEDS: MULTIVIT/CA CARB/B CMPLX/FA TAB GTB (09:20)
[2018-08-08] MEDS: LINAGLIPTIN 5 MG TABLET PO (09:20)
[2018-08-08] MEDS: AMLODIPINE 5 MG TAB GTB (09:21)
[2018-08-08] MEDS: MEROPENEM 500MG/50 ML (PMX) 50 ML IVPB ×2 (09:25→20:20)
[2018-08-08] MEDS ORDERED: VANCOMYCIN IV PER PHARMACY XX (11:30)
[2018-08-08] MEDS: EPOETIN 10000 UNITS/1 ML INJ (ESRD) SC (17:07)
[2018-08-08] MEDS: ATORVASTATIN 10 MG TAB GTB (20:19)
[2018-08-08] MEDS: FAMOTIDINE 20 MG TAB GTB (20:19)
[2018-08-08] MEDS: INSULIN GLARGINE [LANTus] (100 UNITS/ML) SYG SC (20:30)
[2018-08-09] MEDS: METOPROLOL 50 MG TAB GTB ×3 (05:46→22:07)
[2018-08-09] MEDS: LEVOTHYROXINE 75 MCG TAB PO (05:59)
[2018-08-09 06:12] LABS: ALANINE AMINOTRANSFERASE 22 IU/L (13-69); ALBUMIN 2.6 g/dl (3.3-4.9); ALBUMIN/GLOBULIN RATIO 0.89; ALKALINE PHOSPHATASE 467 IU/L (42-121); ANION GAP 6 (5-13); ASPARTATE AMINO TRANSFERASE 36 IU/L (15-46); BILIRUBIN,INDIRECT 0.1 mg/dl (0-1.1); BILIRUBIN,TOTAL 0.1 mg/dl (0.2-1.3); BLOOD UREA NITROGEN 34 mg/dl (7-20); CALCIUM 8.2 mg/dl (8.4-10.2); CARBON DIOXIDE 33 mmol/L (21-31); CHLORIDE 99 mmol/L (97-110); CREATININE 1.99 mg/dl (0.44-1.00); GLUCOSE 227 mg/dl (70-220); POTASSIUM 3.9 mmol/L (3.5-5.1); SODIUM 138 mmol/L (135-144); TOTAL PROTEIN 5.5 g/dl (6.1-8.1)
[2018-08-09] MEDS: INSULIN ASPART [NOVOLOG] 3 ML PEN SC ×4 (07:42→20:27)
[2018-08-09] MEDS: BALSAM PERU/CASTOR OIL 60 GM TUBE TOP ×2 (09:00→20:28)
[2018-08-09] MEDS: SODIUM HYPOCHLORITE (1/40) 1 APPLIC BTL IRR (09:00)
[2018-08-09] MEDS: COLLAGENASE 5 GM (UD JAR) TOP (09:00)
[2018-08-09] MEDS: LINAGLIPTIN 5 MG TABLET PO (09:54)
[2018-08-09] MEDS: AMLODIPINE 5 MG TAB GTB (09:54)
[2018-08-09] MEDS: MEROPENEM 500MG/50 ML (PMX) 50 ML IVPB ×2 (09:54→20:27)
[2018-08-09] MEDS: MULTIVIT/CA CARB/B CMPLX/FA TAB GTB (09:54)
[2018-08-09] MEDS: LEVETIRACETAM (100 MG/ML) 5ML CUP GTB ×2 (09:54→20:26)
[2018-08-09] MEDS: ZYVOX 600 MG TAB PO ×2 (13:22→20:26)
[2018-08-09] MEDS: FAMOTIDINE 20 MG TAB GTB (20:26)
[2018-08-09] MEDS: ATORVASTATIN 10 MG TAB GTB (20:26)
[2018-08-09] MEDS: INSULIN GLARGINE [LANTus] (100 UNITS/ML) SYG SC (20:44)
[2018-08-10] MEDS: LEVOTHYROXINE 75 MCG TAB GTB (06:06)
[2018-08-10] MEDS: METOPROLOL 50 MG TAB GTB ×3 (06:14→21:25)
[2018-08-10] MEDS: hydrALAzine 20 MG INJ IV (06:15)
[2018-08-10] MEDS: INSULIN ASPART [NOVOLOG] 3 ML PEN SC ×4 (07:17→20:28)
[2018-08-10] MEDS: COLLAGENASE 5 GM (UD JAR) TOP (08:17)
[2018-08-10] MEDS: MEROPENEM 500MG/50 ML (PMX) 50 ML IVPB ×2 (08:17→21:25)
[2018-08-10] MEDS: MULTIVIT/CA CARB/B CMPLX/FA TAB GTB (08:17)
[2018-08-10] MEDS: LEVETIRACETAM (100 MG/ML) 5ML CUP GTB ×2 (08:17→20:12)
[2018-08-10] MEDS: ZYVOX 600 MG TAB PO ×2 (08:17→20:12)
[2018-08-10] MEDS: AMLODIPINE 5 MG TAB GTB (08:18)
[2018-08-10] MEDS: LINAGLIPTIN 5 MG TABLET G-TUBE (08:18)
[2018-08-10] MEDS: BALSAM PERU/CASTOR OIL 60 GM TUBE TOP ×2 (08:18→20:12)
[2018-08-10] MEDS: SODIUM HYPOCHLORITE (1/40) 1 APPLIC BTL IRR (08:18)
[2018-08-10] MEDS: EPOETIN 10000 UNITS/1 ML INJ (ESRD) SC (17:33)
[2018-08-10] MEDS: ACETAMINOPHEN 325 MG TAB PEG (19:38)
[2018-08-10] MEDS: FAMOTIDINE 20 MG TAB GTB (20:12)
[2018-08-10] MEDS: ATORVASTATIN 10 MG TAB GTB (20:12)
[2018-08-10] MEDS: INSULIN GLARGINE [LANTus] (100 UNITS/ML) SYG SC (20:29)
[2018-08-11] MEDS: LEVOTHYROXINE 75 MCG TAB GTB (06:11)
[2018-08-11] MEDS: METOPROLOL 50 MG TAB GTB ×3 (06:13→22:38)
[2018-08-11] MEDS: INSULIN ASPART [NOVOLOG] 3 ML PEN SC ×4 (07:06→20:53)
[2018-08-11] MEDS: LEVETIRACETAM (100 MG/ML) 5ML CUP GTB ×2 (07:54→20:50)
[2018-08-11] MEDS: COLLAGENASE 5 GM (UD JAR) TOP (07:54)
[2018-08-11] MEDS: MULTIVIT/CA CARB/B CMPLX/FA TAB GTB (07:55)
[2018-08-11] MEDS: BALSAM PERU/CASTOR OIL 60 GM TUBE TOP ×2 (07:55→20:51)
[2018-08-11] MEDS: AMLODIPINE 5 MG TAB GTB (07:55)
[2018-08-11] MEDS: ZYVOX 600 MG TAB PO ×2 (07:55→20:50)
[2018-08-11] MEDS: LINAGLIPTIN 5 MG TABLET G-TUBE (07:55)
[2018-08-11] MEDS: SODIUM HYPOCHLORITE (1/40) 1 APPLIC BTL IRR (07:56)
[2018-08-11] MEDS: MEROPENEM 500MG/50 ML (PMX) 50 ML IVPB ×2 (10:05→20:55)
[2018-08-11] MEDS: ALBUTEROL/IPRATROPIUM (NEB) 3 ML AMP HHN (18:18)
[2018-08-11] MEDS: ATORVASTATIN 10 MG TAB GTB (20:50)
[2018-08-11] MEDS: FAMOTIDINE 20 MG TAB GTB (20:50)
[2018-08-11] MEDS: INSULIN GLARGINE [LANTus] (100 UNITS/ML) SYG SC (20:57)
[2018-08-12 05:44] LABS: ADD MAN DIFF? NO
[2018-08-12 05:47] LABS: WHITE BLOOD COUNT 12.2 10^3/ul (4.8-10.8)
[2018-08-12 05:47] LABS: BASOPHILS % 0.3 % (0.0-2.0); EOSINOPHILS # 0.3 10^3/ul (0.0-0.5); EOSINOPHILS % 2.5 % (0.0-7.0); HEMATOCRIT 30.1 % (37.0-47.0); HEMOGLOBIN 9.5 g/dl (12.0-16.0); LYMPHOCYTES # 1.1 10^3/ul (0.8-2.9); LYMPHOCYTES % 8.6 % (15.0-51.0); MEAN CORPUSCULAR HEMOGLOBIN 30.1 pg (29.0-33.0); MEAN CORPUSCULAR HGB CONC 31.6 g/dl (32.0-37.0); MEAN CORPUSCULAR VOLUME 95.3 fl (82.0-101.0); MEAN PLATELET VOLUME 9.4 fl (7.4-10.4); MONOCYTE # 0.5 10^3/ul (0.3-0.9); MONOCYTES % 4.3 % (0.0-11.0); NEUTROPHIL # 10.1 10^3/ul (1.6-7.5); NEUTROPHILS % 83.2 % (39.0-77.0); PLATELET COUNT 493 10^3/UL (140-415); RED BLOOD COUNT 3.16 10^6/ul (4.20-5.40); RED CELL DISTRIBUTION WIDTH 19.1 % (11.5-14.5)
[2018-08-12] MEDS: METOPROLOL 50 MG TAB GTB ×3 (06:12→20:48)
[2018-08-12] MEDS: LEVOTHYROXINE 75 MCG TAB GTB (06:12)
[2018-08-12 06:32] LABS: ALANINE AMINOTRANSFERASE 15 IU/L (13-69); ALBUMIN 2.7 g/dl (3.3-4.9); ALBUMIN/GLOBULIN RATIO 0.81; ALKALINE PHOSPHATASE 631 IU/L (42-121); ANION GAP 11 (5-13); ASPARTATE AMINO TRANSFERASE 48 IU/L (15-46); BILIRUBIN,INDIRECT 0.1 mg/dl (0-1.1); BILIRUBIN,TOTAL 0.1 mg/dl (0.2-1.3); BLOOD UREA NITROGEN 47 mg/dl (7-20); CALCIUM 8.3 mg/dl (8.4-10.2); CARBON DIOXIDE 30 mmol/L (21-31); CHLORIDE 96 mmol/L (97-110); CREATININE 2.67 mg/dl (0.44-1.00); GLUCOSE 274 mg/dl (70-220); POTASSIUM 4.7 mmol/L (3.5-5.1); SODIUM 137 mmol/L (135-144)
[2018-08-12] MEDS: INSULIN ASPART [NOVOLOG] 3 ML PEN SC ×3 (08:16→17:14)
[2018-08-12] MEDS: COLLAGENASE 5 GM (UD JAR) TOP (09:07)
[2018-08-12] MEDS: ZYVOX 600 MG TAB PO ×2 (09:07→20:49)
[2018-08-12] MEDS: LEVETIRACETAM (100 MG/ML) 5ML CUP GTB (09:07)
[2018-08-12] MEDS: AMLODIPINE 5 MG TAB GTB (09:08)
[2018-08-12] MEDS: LINAGLIPTIN 5 MG TABLET G-TUBE (09:08)
[2018-08-12] MEDS: MULTIVIT/CA CARB/B CMPLX/FA TAB GTB (09:08)
[2018-08-12] MEDS: SODIUM HYPOCHLORITE (1/40) 1 APPLIC BTL IRR (09:09)
[2018-08-12] MEDS: BALSAM PERU/CASTOR OIL 60 GM TUBE TOP ×2 (09:09→20:49)
[2018-08-12] MEDS: MEROPENEM 500MG/50 ML (PMX) 50 ML IVPB ×2 (09:13→20:48)
[2018-08-12] MEDS: INSULIN GLARGINE [LANTus] (100 UNITS/ML) SYG SC (20:00)
[2018-08-12] MEDS: ALBUTEROL/IPRATROPIUM (NEB) 3 ML AMP HHN (20:43)
[2018-08-12] MEDS: FAMOTIDINE 20 MG TAB GTB (20:48)
[2018-08-12] MEDS: ATORVASTATIN 10 MG TAB GTB (20:49)
[2018-08-12] MEDS: ACETAMINOPHEN 325 MG TAB PEG (21:01)
[2018-08-13] MEDS: INSULIN ASPART [NOVOLOG] 3 ML PEN SC ×5 (02:12→17:25)
[2018-08-13] MEDS: METOPROLOL 50 MG TAB GTB ×2 (06:31→14:00)
[2018-08-13] MEDS: LEVOTHYROXINE 75 MCG TAB GTB (06:31)
[2018-08-13] MEDS: AMLODIPINE 5 MG TAB GTB (09:00)
[2018-08-13] MEDS: MULTIVIT/CA CARB/B CMPLX/FA TAB GTB (09:20)
[2018-08-13] MEDS: COLLAGENASE 5 GM (UD JAR) TOP (09:20)
[2018-08-13] MEDS: ZYVOX 600 MG TAB PO (09:20)
[2018-08-13] MEDS: LINAGLIPTIN 5 MG TABLET G-TUBE (09:20)
[2018-08-13] MEDS: MEROPENEM 500MG/50 ML (PMX) 50 ML IVPB (09:21)
[2018-08-13] MEDS: BALSAM PERU/CASTOR OIL 60 GM TUBE TOP (09:21)
[2018-08-13] MEDS: SODIUM HYPOCHLORITE (1/40) 1 APPLIC BTL IRR (09:21)
[2018-08-13] MEDS: ACETAMINOPHEN 325 MG TAB PEG (12:47)
[2018-08-13] MEDS: INSULIN GLARGINE [LANTus] (100 UNITS/ML) SYG SC (15:28)
[2018-08-13] MEDS: EPOETIN 10000 UNITS/1 ML INJ (ESRD) SC (17:30)
[2018-08-13] MEDS ORDERED: INSULIN GLARGINE [LANTus] (100 UNITS/ML) SYG SC (20:00)
== END 2018-08-13 23:40 | disposition expired | DRG 853 ==
LOC: E/R 17:26 → 6WM 20:52
PROC: 0QB10ZZ Excision of Sacrum, Open Approach (ICD-10-PCS; principal; 2018-08-02)
PROC: 30233N1 Transfusion of Nonautologous Red Blood Cells into Peripheral Vein, Percutaneous Approach (ICD-10-PCS; 2018-08-02)
PROC: 5A1D70Z Performance of Urinary Filtration, Intermittent, Less than 6 Hours Per Day (ICD-10-PCS; 2018-08-03)
DX: A41.50 Gram-negative sepsis, unspecified (principal); L89.323 Pressure ulcer of left buttock, stage 3; N18.6 End stage renal disease; G92 Toxic encephalopathy; J18.9 Pneumonia, unspecified organism; J69.0 Pneumonitis due to inhalation of food and vomit; L89.154 Pressure ulcer of sacral region, stage 4; I13.2 Hypertensive heart and chronic kidney disease with heart failure and with stage 5 chronic kidney disease, or end stage renal disease; E87.2 Acidosis; M46.28 Osteomyelitis of vertebra, sacral and sacrococcygeal region; E44.0 Moderate protein-calorie malnutrition; L02.31 Cutaneous abscess of buttock; J44.0 Chronic obstructive pulmonary disease with (acute) lower respiratory infection; R65.20 Severe sepsis without septic shock; Z96.653 Presence of artificial knee joint, bilateral; I50.9 Heart failure, unspecified; F32.9 Major depressive disorder, single episode, unspecified; F41.9 Anxiety disorder, unspecified; Z91.81 History of falling; E11.22 Type 2 diabetes mellitus with diabetic chronic kidney disease; Z99.2 Dependence on renal dialysis; D63.1 Anemia in chronic kidney disease; Z93.1 Gastrostomy status; Z87.440 Personal history of urinary (tract) infections; F03.90 Unspecified dementia, unspecified severity, without behavioral disturbance, psychotic disturbance, mood disturbance, and anxiety; R13.10 Dysphagia, unspecified; E11.21 Type 2 diabetes mellitus with diabetic nephropathy; E11.42 Type 2 diabetes mellitus with diabetic polyneuropathy; M19.90 Unspecified osteoarthritis, unspecified site; Z68.20 Body mass index [BMI] 20.0-20.9, adult; Z66 Do not resuscitate; G89.29 Other chronic pain; E78.5 Hyperlipidemia, unspecified; I46.9 Cardiac arrest, cause unspecified; M48.061 Spinal stenosis, lumbar region without neurogenic claudication; M54.16 Radiculopathy, lumbar region; I48.91 Unspecified atrial fibrillation; B96.20 Unspecified Escherichia coli [E. coli] as the cause of diseases classified elsewhere; B95.61 Methicillin susceptible Staphylococcus aureus infection as the cause of diseases classified elsewhere; Z16.21 Resistance to vancomycin; B95.2 Enterococcus as the cause of diseases classified elsewhere; E03.9 Hypothyroidism, unspecified; I34.0 Nonrheumatic mitral (valve) insufficiency; Y95 Nosocomial condition
CPT/HCPCS: 36415; 36430; 70450; 71045; 72195; 80048; 80053; 80202; 82728; 82962; 83036; 83540; 83605; 83735; 84100; 84484; 85025; 85610; 85730; 86850; 86900; 86901; 86920; 87040; 87070; 87081; 87086; 87340; 88304; 90935; 93005; 93306; 94640; 96374; 99291-25